=== PATIENT | female | born 1935 | race Caucasian/White ===

== ENCOUNTER 2019-06-17 15:01 | Inpatient (IN) ==
[2019-06-17] MEDS ORDERED: SODIUM CHLORIDE 0.9% 1000ML 1,000 ML IV ONE (15:53)
--- NOTE | 2019-06-17 15:58 | Emergency Department Note ---
ED Provider Note Name: TERESA DAVISON Age: 84 Arrives Via: Ambulance Informant: Nursing CC: Weakness HPI: 84F arrives for evaluation of weakness. Patient reportedly an alcoholic who has been at local [facility] for the previous 4 days. She reportedly has not been eating and increasingly weak. She was sent here for further evaluation due to weakness and non-verbal at [facility]. History otherwise is from paperwork she arrives with. No treatment by EMS prior to arrival. No trauma nor falls reported. ROS: Unable to obtain. Patient nonverbal. Past Medical History:Hypothyroid, Glaucoma, HypoMag, Insomnia, Dementia, Alcohol abuse, anxiety, Vit d deficiency, Vit b12 deficiency, HTN, GERD, DLP, Constipation, Dysphagia, Ambulatory dysfunction Past Surgical History:Unknown Family History:Unknown Social History:Unknown - Lives in [facility], reportedly an alcoholic. Home Medications:Tylenol prn, asa 81mg, atenolol, cyanocobalamin, benadryl, dulcolax, Estradiol patch, fexofenadine, levothyroxin, lorazepam, magox, omeprazole, Allergies:Cefdinir, Clindamycin, Fluconazole, Hydroxychloroquine Vitals:BP 120/67, P 106, R 36, O2 87% RA Physical Exam: GENERAL: Patient is unwell appearing and in no distress. Elderly, cachectic, smells heavily of urine EYES: No scleral icterus, unremarkable pupils. ENT: Mucous membranes dry, no nasal congestion. NECK: No masses appreciated, nomeningismus, trachea is midline. RESPIRATORY: Tachypnea moderate dyspnea. Clear sounds bilaterally. No wheeze appreciated. CARDIOVASCULAR: Tachy.No murmurs, rubs, gallops appreciated. GASTROINTESTINAL: Old RLQ surgical scar noted. Abdomen soft, non-tender, no peritonitis.Bowel sounds positive.No masses appreciated. BACK: No midline tenderness, no CVA tenderness EXTREMITIES: Normal motion all extremities, no cyanosis, no edema. NEUROLOGIC: Awake, looking downward, Moving arms/legs weakly SKIN: Dry, poor turgur, No rash, no jaundice, no diaphoresis. ED Course: Prior Medical Record, Triage/Nursing Notes, Medications, Allergies reviewed by Me Vital Signs: reviewed and remarkable for Tachy, Hypoxia Labs:Reviewed and remarkable for no significant abnormalities other than UA+ Interventions: Saline Lock, Zosyn 4.5gm IV, Vanco IV, NSS bolus 1 L IV Imaging:X ray results are stated below per my interpretation: Chest: 1 view: No infiltrate, no effusion, normal cardiac border. EKG:Per My Interpretation: Indication Weakness/Hypoxia: NSR 100 bpm, qtc 456. No Ectopy. No Ischemia. No previous for comparison. Reassessments/Times: Multiple, stable, HR improving Blood pressure:Normal.No Referral necessary Disposition:hospitalization Differentials:Sepsis, UTI, PNA, Electrolyte abnormality, malingering amongst other pathologies. Medical Decision Makin yr old female with extensive PMH including dementia who recently arrived at a local [facility] and hasn't been interacting nor eating since getting there. She is hypoxic and ill appearing on arrival. Lungs relatively clear however and CXR OK. Cultures where obtained. IV fluids given with improvement in HR. UA reveals UTI. Suspect she is septic from UTI that is causing worsening mental status. She just was in hospital at [facility] apparently thus given IV Zosyn and Vanco for broad spectrum coverage. Hypoxia likely due to sepsis. No leg swelling and seems unlikely PE related. History reported of alcoholism though seems less likely ETOH withdrawal related. Hospitalist consulted for further management. Will hold off on CT head given planned admission and evidence of o ther cause AMS at this time. Impression: Acute UTI Altered Mental Status Hypoxia The scribe's documentation has been prepared under my direction and personally reviewed by me in its entirety. I confirm that the note above accurately reflects all work, treatment, procedures, and medical decision making performed by me. Gume Selby MD Impression & Plan Acute UTI, Altered mental status, Hypoxia Past Med/Surg History Social History Preferred Language: Greenlandic Lung Puller Required: No Current Living Situation: [facility] Feels Safe at Home: Declines to Answer Smoking Status: Unknown if ever smoked Results & Data Vital Signs Vital Signs - 24 hr 06/17/19 15:05 06/17/19 16:00 06/17/19 16:30 Pulse Rate 106 H 102 H Pulse Rate from SpO2 Sensor 102 H 98 H Respiratory Rate 36 H 34 H 32 H Respiratory Depth Shallow Blood Pressure 120/67 149/91 H 149/84 H Blood Pressure Mean 84 101 90 Pulse Oximetry 87 L 98 95 Oxygen Delivery Method Nasal Cannula Oxygen Flow Rate Sepsis Recent Fever Within 48 Hours No Sepsis New/Unexplained Change in Mental Status No Sepsis Action Taken by Nursing No Action Required Oxygen Flow Rate - Titration 2 Pulse Oximetry Post Tiitration 96 06/17/19 17:00 06/17/19 17:30 Pulse Rate Pulse Rate from SpO2 Sensor 100 H 97 H Respiratory Rate 30 H Respiratory Depth Blood Pressure 154/86 H 145/88 H Blood Pressure Mean 97 94 Pulse Oximetry 95 96 Oxygen Delivery Method Oxygen Flow Rate 2 Sepsis Recent Fever Within 48 Hours Sepsis New/Unexplained Change in Mental Status Sepsis Action Taken by Nursing Oxygen Flow Rate - Titration Pulse Oximetry Post Tiitration Laboratory Data Result diagrams: 06/17/19 16:16 06/17/19 16:16 Lab Results 06/17/19 06/17/19 06/17/19 Range/Units 15:50 16:16 16:16 WBC 12.85 H (4.8-10.8) K/uL RBC 3.82 L (4.2-5.4) M/uL Hgb 13.7 (12.0-16.0) g/dL Hct 41.1 (37-47) % MCV 107.6 H (80-100) fL MCH 35.9 H (25-34) pg MCHC 33.3 (32-36) g/dL RDW Std Deviation 51.5 H (36.4-46.3) fL RDW Coeff of Ruthie 13.2 (11.5-14.5) % Plt Count 319 (130-400) K/uL MPV 12.3 H (7.4-10.4) fL Immature Gran % (Auto) 0.2 % Neut % (Auto) 86.9 % Lymph % (Auto) 4.9 % Larimer % (Auto) 7.9 % Eos % (Auto) 0.0 % Baso % (Auto) 0.1 % Immature Gran # (Auto) 0.02 (0.00-0.02) K/uL Neut # (Auto) 11.17 H (1.4-6.5) K/uL Lymph # (Auto) 0.63 L (1.2-3.4) K/uL Larimer # (Auto) 1.02 H (0.11-0.59) K/uL Eos # (Auto) 0.00 (0-0.5) K/uL Baso # (Auto) 0.01 (0-0.2) K/uL PT 12.3 H (9.0-12.0) Seconds INR 1.2 H (0.9-1.1) Sodium (136-145) mmol/L Potassium (3.5-5.1) mmol/L Chloride (98-107) mmol/L Carbon Dioxide (21-32) mmol/L Anion Gap (3-11) BUN (7-18) mg/dl Creatinine (0.6-1.2) mg/dl Est Cr Clr Drug Dosing Est GFR ( Amer) Est GFR (Non-Af Amer) BUN/Creatinine Ratio (10-20) Glucose (70-99) mg/dl Lactate (0.4-2.0) mmol/L Calcium (8.5-10.1) mg/dl Magnesium (1.8-2.4) mg/dl Total Bilirubin (0.2-1) mg/dl Direct Bilirubin (0-0.2) mg/dl AST (15-37) U/L ALT (12-78) U/L Alkaline Phosphatase (45-117) U/L Ammonia (11-32) umol/L Troponin I (0-0.045) ng/ml Total Protein (6.4-8.2) gm/dl Albumin (3.4-5.0) gm/dl Lipase (73-393) U/L Urine Color Dark Yellow Urine Appearance Turbid A (Clear) Urine pH 6.0 (4.5-7.5) Ur Specific Henderson 1.026 (1.000-1.030) Urine Protein 1+ H (Negative) Urine Glucose (UA) Negative (Negative) Urine Ketones Negative (Negative) Urine Blood 3+ H (Negative) Urine Nitrite Positive A (Negative) Urine Bilirubin Negative (Negative) Urine Urobilinogen Negative (Negative) Ur Leukocyte Esterase 3+ H (Negative) Urine WBC (Auto) >30 H (0-5) /hpf Urine RBC (Auto) >30 H (0-4) /hpf U Hyaline Cast (Auto) 5-10 H (0-5) /lpf U Epithel Cells (Auto) >30 H (0-5) /lpf Urine Bacteria (Auto) 4+ H (Negative) Granular Casts 1-5 H (0) /lpf Urine Yeast Present A (None Prsent) 06/17/19 06/17/19 06/17/19 Range/Units 16:16 16:16 16:16 WBC (4.8-10.8) K/uL RBC (4.2-5.4) M/uL Hgb (12.0-16.0) g/dL Hct (37-47) % MCV (80-100) fL MCH (25-34) pg MCHC (32-36) g/dL RDW Std Deviation (36.4-46.3) fL RDW Coeff of Ruthie (11.5-14.5) % Plt Count (130-400) K/uL MPV (7.4-10.4) fL Immature Gran % (Auto) % Neut % (Auto) % Lymph % (Auto) % Larimer % (Auto) % Eos % (Auto) % Baso % (Auto) % Immature Gran # (Auto) (0.00-0.02) K/uL Neut # (Auto) (1.4-6.5) K/uL Lymph # (Auto) (1.2-3.4) K/uL Larimer # (Auto) (0.11-0.59) K/uL Eos # (Auto) (0-0.5) K/uL Baso # (Auto) (0-0.2) K/uL PT (9.0-12.0) Seconds INR (0.9-1.1) Sodium 147 H (136-145) mmol/L Potassium 3.7 (3.5-5.1) mmol/L Chloride 113 H (98-107) mmol/L Carbon Dioxide 26 (21-32) mmol/L Anion Gap 8.0 (3-11) BUN 33 H (7-18) mg/dl Creatinine 0.68 (0.6-1.2) mg/dl Est Cr Clr Drug Dosing Not Reportable Est GFR ( Amer) 94.4 Est GFR (Non-Af Amer) 81.5 BUN/Creatinine Ratio 48.8 H (10-20) Glucose 133 H (70-99) mg/dl Lactate 1.2 (0.4-2.0) mmol/L Calcium 9.8 (8.5-10.1) mg/dl Magnesium 2.1 (1.8-2.4) mg/dl Total Bilirubin 0.5 (0.2-1) mg/dl Direct Bilirubin < 0.1 (0-0.2) mg/dl AST 45 H (15-37) U/L ALT 30 (12-78) U/L Alkaline Phosphatase 74 (45-117) U/L Ammonia 12.0 (11-32) umol/L Troponin I < 0.015 (0-0.045) ng/ml Total Protein 7.8 (6.4-8.2) gm/dl Albumin 2.2 L (3.4-5.0) gm/dl Lipase 57 L (73-393) U/L Urine Color Urine Appearance (Clear) Urine pH (4.5-7.5) Ur Specific Henderson (1.000-1.030) Urine Protein (Negative) Urine Glucose (UA) (Negative) Urine Ketones (Negative) Urine Blood (Negative) Urine Nitrite (Negative) Urine Bilirubin (Negative) Urine Urobilinogen (Negative) Ur Leukocyte Esterase (Negative) Urine WBC (Auto) (0-5) /hpf Urine RBC (Auto) (0-4) /hpf U Hyaline Cast (Auto) (0-5) /lpf U Epithel Cells (Auto) (0-5) /lpf Urine Bacteria (Auto) (Negative) Granular Casts (0) /lpf Urine Yeast (None Prsent) Administered Medications Enoxaparin Sodium (Lovenox) 40 mg SQ Q24H [facility] Stop: 07/17/19 20:59 Last Admin: 06/17/19 22:07 Dose: 40 mg Documented by: [id number] Piperacillin Sod/Tazobactam (Sod 3.375 gm/ Dextrose) 115 mls @ 28.75 mls/hr IV Q8H NIGEL; Protocol Stop: 06/20/19 00:00 Last Admin: 06/18/19 00:02 Dose: 28.8 mls/hr Documented by: [id number] Multivitamins 10 ml/ Thiamine HCl 100 mg/ Folic Acid 1 mg/Sodium Chloride 1,011.2 mls @ 200 mls/hr IV .Q5H4M ONE Stop: 06/18/19 03:03 Last Admin: 06/17/19 22:05 Dose: 200 mls/hr Documented by: [id number] Discontinued Medications Sodium Chloride (Nss 1000ml) 1,000 mls @ 999 mls/hr IV .Q1H1M ONE Stop: 06/17/19 16:53 Last Infusion: 06/17/19 18:49 Dose: 0 mls/hr Documented by: [id number] Admin: 06/17/19 17:56 Dose: 999 mls/hr Documented by: [id number] Vancomycin HCl 1,000 mg/ (Sodium Chloride) 520 mls @ 200 mls/hr IV NOW ONE Stop: 06/17/19 19:33 Last Infusion: 06/17/19 20:32 Dose: 0 mls/hr Documented by: [id number] Admin: 06/17/19 17:56 Dose: 200 mls/hr Documented by: [id number] Piperacillin Sod/Tazobactam Sod (Zosyn) 4.5 gm in 120 mls @ 240 mls/hr IV NOW ONE Stop: 06/17/19 17:27 Last Infusion: 06/17/19 18:49 Dose: 0 mls/hr Documented by: [id number] Admin: 06/17/19 17:56 Dose: 240 mls/hr Documented by: [id number] Discharge Plan Visit Data *Final* Discharge Date/Time: 06/17/19 19:04 Chief Complaint: Mental Health Evaluation ED Provider: Gume Selby Discharge Problem: Acute UTI, Altered mental status, Hypoxia Patient Disposition: Admitted As Inpatient Discharge Instructions Interventions: ED Discharge Assessment Last Done: 06/17/19 19:04 Discharge Problem: Altered mental status Qualifiers: Altered mental status type: stupor Qualified Code(s): R40.1 - Stupor
--- NOTE | 2019-06-17 16:30 | XRay Report ---
XR chest 1V portable HISTORY: 84 years-old Female Sepsis hypoxia acute sepsis COMPARISON: None available TECHNIQUE: Portable AP view of the chest FINDINGS: Cardiac mediastinal and hilar silhouettes are within normal limits. Trace pleural effusions with mild bibasilar opacities. No pneumothorax or overt pulmonary edema. Degenerative changes of the shoulders and spine. IMPRESSION: Trace pleural effusions with bibasilar opacities suggestive of atelectasis versus pneumon itis. ACT 112: Negative or not required by law. The above report was generated using voice recognition software. It may contain grammatical, syntax o r spelling errors. Electronically signed by: José Marion M.D. 06/17/2019 4:29 PM
[2019-06-17 16:39] LABS: Basophils # (auto) 0.01 K/uL (0-0.2); Basophils % (auto) 0.1 %; Hematocrit (blood only) 41.1 % (37-47); Hemoglobin 13.7 g/dL (12.0-16.0); Immature Granulocytes # (auto) 0.02 K/uL (0.00-0.02); Immature Granulocytes % (auto) 0.2 %; Lymphocytes # (auto) 0.63 K/uL (1.2-3.4); Lymphocytes % (auto) 4.9 %; Mean Corpuscular Hemoglobin 35.9 pg (25-34); Mean Corpuscular Hgb Conc 33.3 g/dL (32-36); Mean Corpuscular Volume 107.6 fL (80-100); Mean Platelet Volume 12.3 fL (7.4-10.4); Monocytes # (auto) 1.02 K/uL (0.11-0.59); Monocytes % (auto) 7.9 %; Neutrophils # (auto) 11.17 K/uL (1.4-6.5); Neutrophils % (auto) 86.9 %; Platelet Count 319 K/uL (130-400); RDW Coefficient of Variation 13.2 % (11.5-14.5); RDW Standard Deviation 51.5 fL (36.4-46.3); Red Blood Count 3.82 M/uL (4.2-5.4); White Blood Count 12.85 K/uL (4.8-10.8)
[2019-06-17 16:40] LABS: Appearance Urine Turbid (Clear); Bacteria Urine Automated 4+ (Negative); Bilirubin Urine Negative (Negative); Blood Urine 3+ (Negative); Color Urine Dark Yellow; Epithelial Cell Urine Auto >30 /lpf (0-5); Glucose Urine UA Negative (Negative); Ketones Urine Negative (Negative); Leukocyte Esterase Urine 3+ (Negative); Nitrite Urine Positive (Negative); Protein Urine 1+ (Negative); Specific Gravity Urine 1.026 (1.000-1.030); Urobilinogen Urine Negative (Negative); WBC Urine Automated >30 /hpf (0-5)
[2019-06-17 16:58] LABS: Alanine Aminotransferase 30 U/L (12-78); Albumin Level 2.2 gm/dl (3.4-5.0); Aspartate Aminotransferase 45 U/L (15-37); BUN Creatinine Ratio 48.8 (10-20); Bilirubin Direct < 0.1 mg/dl (0-0.2); Blood Urea Nitrogen 33 mg/dl (7-18); Calcium 9.8 mg/dl (8.5-10.1); Carbon Dioxide 26 mmol/L (21-32); Chloride 113 mmol/L (98-107); Est GFR (African American) 94.4; Est GFR (Non-African American) 81.5; Glucose 133 mg/dl (70-99); Lipase 57 U/L (73-393); Magnesium 2.1 mg/dl (1.8-2.4); Potassium 3.7 mmol/L (3.5-5.1); Sodium 147 mmol/L (136-145)
[2019-06-17] MEDS ORDERED: PIPERACILL/TAZOBAC CONSULT ACTIVE PRN ×2 (16:58→20:24)
[2019-06-17] MEDS ORDERED: VANCOMYCIN HCL 1,000 MG in SODIUM CHLORIDE 0.9% 500 ML IV ONE (16:58)
[2019-06-17] MEDS ORDERED: PIPERACILLIN/TAZOBACTAM 4.5 GM/120 ML BAG IV ONE (16:58)
[2019-06-17] MEDS ORDERED: VANCOMYCIN CONSULT ACTIVE PRN ×2 (16:58→20:24)
[2019-06-17 17:00] LABS: RBC Urine Automated >30 /hpf (0-4)
[2019-06-17 17:01] LABS: INR 1.2 (0.9-1.1); Prothrombin Time 12.3 Seconds (9.0-12.0)
[2019-06-17 17:03] LABS: Alkaline Phosphatase 74 U/L (45-117); Bilirubin,Total 0.5 mg/dl (0.2-1); Total Protein 7.8 gm/dl (6.4-8.2); Troponin I < 0.015 ng/ml (0-0.045)
--- NOTE | 2019-06-17 17:55 | History & Physical Report ---
Date of Service June 17, 2019 Assessment & Plan (1) UTI (urinary tract infection): Patient will be admitted for IV antibiotics I am not confident that she can take oral medication at this point. She also appears to be mildly dehydrated per labs. Patient was given broad-spectrum antibiotics with Zosyn and vancomycin, will continue this until we have a clear sources of infection and urine culture is resulted. (2) Toxic encephalopathy: Patient seems to have altered mental status. This may clear with treatment with antibiotics. Obtaining records from [facility] may also be helpful to find out patient's baseline mental status. Contacting the patient's POA may also be helpful once that person is available. Consider psych consultation. For now, we will keep the patient n.p.o. on IV fluids. Speech evaluation prior to diet release considering questionable findings of pneumonitis. Check plain CT of the head. I do not think the patient has a focal ischemic event at this time but would like to confirm. (3) Alcoholism: Patient does not seem to have any significant alcohol withdrawal at this time. If she was previously hospitalized, s she may have had previous withdrawal that is since resolved. For now continue to monitor. History of Present Illness Primary Care Provider: Deep Salguero This is an 84-year-old female with unclear past medical history but may have previous alcoholism that presented today with change in mental status and anorexia. Patient is nonverbal to me and I can get no history. I did speak to the emergency room physician who also did not have much history on the patient. He did not the patient has no POA and is currently a lizama of the [facility] but he could not contact anyone in that office today on account of the holiday season. Was relayed to me was that the patient was recently treated at [facility]. Patient was discharged a few days ago to a residential. The patient was sent from the residential to our facility after 4 days as the patient was very weak and not eating well. In fact, the initial request was that the patient be 302'd for "refusing to eat". On my evaluation, the patient seemed to be very altered and did not acknowledge me in the room nor did she speak to me. Therefore, no further history can be obtained. Past Med/Surg History Social History Feels Safe at Home: Declines to Answer Smoking Status: Former smoker Review of Systems Review of Systems: Unobtainable due to cognitive status Physical Exam Constitutional: + altered mental status Neck: trachea midline, no thyromegaly Respiratory: Auscultation: lungs clear to auscultation bilaterally Very limited evaluation Cardiovascular: Rate/Rhythm: regular rate and regular rhythm Very limited evaluation Gastrointestinal (Abdomen): normal bowel sounds, soft, nontender, no hepatosplenomegaly Psychiatric: Orientation: + not alert, + not oriented x 3 and + uncooperative Results & Data Vital Signs (Past 12 Hours) Vital Signs Pulse Resp BP Pulse Ox 06/17/19 17:00 30 H 154/86 H 95 06/17/19 16:30 32 H 149/84 H 95 06/17/19 16:00 102 H 34 H 149/91 H 98 06/17/19 15:05 106 H 36 H 120/67 87 L Laboratory Results Patient is a low WBC count of 12.85, hemoglobin is normal. INR is 1.2. Sodium is 147. BUN is 33 with creatinine 0.68. Glucose of 133. Urinalysis appears to be grossly abnormal. Diagnostic Findings XR chest 1V portable HISTORY: 84 years-old Female Sepsis hypoxia acute sepsis COMPARISON: None available TECHNIQUE: Portable AP view of the chest FINDINGS: Cardiac mediastinal and hilar silhouettes are within normal limits. Trace pleural effusions with mild bibasilar opacities. No pneumothorax or overt pulmonary edema. Degenerative changes of the shoulders and spine. IMPRESSION: Trace pleural effusions with bibasilar opacities suggestive of atelectasis versus pneumonitis. PG Care Time/CCT Total # of Minutes Spent Total Time Spent with Patient: Total time spent is greater than 50% in coordination of care (as documented) at patient's floor/unit and/or counseling patient:
[2019-06-17] MEDS ORDERED: VANCOMYCIN HCL 1,000 MG in SODIUM CHLORIDE 0.9% 250 ML IV SCH (20:24)
[2019-06-17] MEDS ORDERED: MULTI-VITAMIN INFUSION 10 ML, THIAMINE HCL 100 MG, FOLIC ACID 1 MG in SODIUM CHLORIDE 0... IV ONE ×2 (20:24→22:00)
[2019-06-17] MEDS ORDERED: SODIUM CHLORIDE 0.9% 1000ML 1,000 ML IV SCH (20:24)
[2019-06-17] MEDS ORDERED: PIPERACILLIN/TAZOBACTAM 3.375 GM/115 ML BAG IV SCH (20:24)
[2019-06-17] MEDS ORDERED: PATIENT'S HEIGHT AND/OR WEIGHT NEEDED SCH (20:38)
--- NOTE | 2019-06-17 21:38 | CT Scan Report ---
CT head/brain wo con CLINICAL HISTORY: 84 years-old Female with altered mental status. Acutely altered mental status TECHNIQUE: Multiple axial CT images of the head were obtained without contrast. A dose lowering tech nique was utilized adhering to the principles of ALARA. CT DOSE: 537.48 mGy.cm COMPARISON: None. FINDINGS: No acute intracranial hemorrhage, midline shift, intracranial mass, hydrocephalus, territorial ischem ia or abnormal extra-axial collection. Age-related involutional changes with ventriculomegaly, likely secondary to ex vacuo changes. Patchy white matter hypodensities suggest chronic microvascular ische kisha disease. Cerebral vascular calcifications noted. The calvarium is intact. Note is made of a metopic suture. The paranasal sinuses, mastoid air cells, and middle ear cavities are clear. IMPRESSION: 1. No acute intracranial abnormality. 2. Age-related involution with ventriculomegaly, likely secondary to ex vacuo changes. Normal pressur e hydrocephalus could have a similar appearance however is considered less likely. Correlate clinical ly. 3. Chronic microvascular ischemic disease. ACT 112: Negative or not required by law. The above report was generated using voice recognition software. It may contain grammatical, syntax o r spelling errors. Electronically signed by: José Marion M.D. 06/17/2019 9:37 PM
[2019-06-17] MEDS: ENOXAPARIN INJ 40 MG/0.4 ML SYR SQ SCH (22:07)
[2019-06-17] MEDS ORDERED: Nursing to Pharmacy Communication ONE (22:13)
--- NOTE | 2019-06-17 22:44 | Pharmacy Report ---
Pharmacy Abx Initial Consult - Date of Service June 17, 2019 - Pharmacy Dosing Scope Date of Consult: 06/17/19 Consultation requested by: Dr. Lou Pharmacy is consulted to initiate vancomycin and Zosyn IV dosing therapy, order appropriate labs and adjust drug dose/frequency. - Subjective The patient is a 84 year old F admitted on 06/17/19 17:59. - Objective Height: 5 ft Weight: 56 kg Vital Signs (Past 12hrs): Vital Signs Temp Pulse Pulse Resp BP BP Pulse Ox 06/17/19 20:24 36.8 C 100 H 20 164/73 H 95 06/17/19 18:30 98 H 23 115/88 95 06/17/19 18:01 34 H 136/98 97 06/17/19 17:30 145/88 H 96 06/17/19 17:00 30 H 154/86 H 95 06/17/19 16:30 32 H 149/84 H 95 06/17/19 16:00 102 H 34 H 149/91 H 98 06/17/19 15:05 106 H 36 H 120/67 87 L Lab Results (24hrs): Laboratory Tests (24 Hours) 06/17/19 06/17/19 16:16 16:16 WBC 12.85 H Neut # (Auto) 11.17 H Creatinine 0.68 Est Cr Clr Drug Dosing Not Reportable Micro Results: 06/17/19 16:28 Aerobic Blood Culture - Pending Blood Anaerobic Blood Culture - Pending 06/17/19 15:50 Urine Culture - Pending Urine,Clean Catch 06/17/19 16:16 Aerobic Blood Culture - Pending Blood Anaerobic Blood Culture - Pending - Risk Factors for Resistance * Resident in a correction or extended-care facility * Hospitalization for 48 hours or more within the past 90 days ([facility]) - Assessment & Plan Assessment 84 year old F receiving empiric vancomycin and Zosyn for treatment of possible UTI. Unclear cause of altered mental status at this time. Patient presents from correction following recent admission to [facility]. Microbiology (06/17/19) Blood cultures x 2: pending Urine culture: pending Plan Vancomycin IV * Estimated PK Parameters: Vd 0.7 L/kg, Khanh 0.046 hr-1, t1/2 56 hr * Loading dose: 1000 mg (18 mg/kg) * Maintenance dose: 750 mg IV (13 mg/kg) every 12 hours * Will dose vancomycin to achieve AUC:DEYSI of greater than 400 * Trough level ordered for 06/19/19 Piperacillin/tazobactam * 4.5 g bolus administered over 30 minutes, then 3.375 g IV extended infusion every 8 hours for CrCl greater than 20 mL/min * Dose appropriate Pharmacy will continue to follow and will adjust dose/frequency as necessary. Thank you.
[2019-06-18] MEDS: PIPERACILLIN/TAZOBACTAM 3.375 GM in DEXTROSE 5% 100 ML IV SCH ×3 (00:02→16:10)
[2019-06-18] MEDS: SODIUM CHLORIDE 0.9% 1000ML 1,000 ML IV SCH ×3 (03:23→10:55)
[2019-06-18] MEDS: VANCOMYCIN HCL 750 MG in SODIUM CHLORIDE 0.9% 250 ML IV SCH ×2 (05:43→18:35)
[2019-06-18 08:27] LABS: Basophils # (auto) 0.02 K/uL (0-0.2); Basophils % (auto) 0.2 %; Eosinophils # (auto) 0.01 K/uL (0-0.5); Eosinophils % (auto) 0.1 %; Hematocrit (blood only) 36.3 % (37-47); Hemoglobin 11.8 g/dL (12.0-16.0); Immature Granulocytes # (auto) 0.03 K/uL (0.00-0.02); Immature Granulocytes % (auto) 0.3 %; Lymphocytes # (auto) 0.89 K/uL (1.2-3.4); Lymphocytes % (auto) 7.5 %; Mean Corpuscular Hemoglobin 35.2 pg (25-34); Mean Corpuscular Hgb Conc 32.5 g/dL (32-36); Mean Corpuscular Volume 108.4 fL (80-100); Monocytes # (auto) 0.66 K/uL (0.11-0.59); Monocytes % (auto) 5.6 %; Neutrophils % (auto) 86.3 %; Platelet Count 274 K/uL (130-400); RDW Coefficient of Variation 13.3 % (11.5-14.5); RDW Standard Deviation 52.6 fL (36.4-46.3); Red Blood Count 3.35 M/uL (4.2-5.4); White Blood Count 11.81 K/uL (4.8-10.8)
[2019-06-18 09:03] LABS: BUN Creatinine Ratio 43.5 (10-20); Calcium 8.8 mg/dl (8.5-10.1); Creatinine Clr Calc Pharmacy 60.1 ml/min; Est GFR (African American) 100.1; Est GFR (Non-African American) 86.3; Potassium 3.1 mmol/L (3.5-5.1)
[2019-06-18 09:32] LABS: Folate (Folic Acid) 23.5 ng/ml (>5.38)
[2019-06-18] MEDS: POTASSIUM CHLORIDE 40 MEQ in DEXTROSE 5% 1,000 ML IV SCH (11:30)
[2019-06-18] MEDS: THIAMINE HCL 200 MG in SODIUM CHLORIDE 0.9% 50 ML IV SCH ×2 (14:36→22:20)
[2019-06-18] MEDS: METOPROLOL TARTRATE 1 MG/ML VIAL IV PRN ×2 (14:36→19:52)
[2019-06-18] MEDS: ENOXAPARIN INJ 40 MG/0.4 ML SYR SQ SCH (22:20)
--- NOTE | 2019-06-18 22:54 | Hospitalist Progress Note ---
Date of Service June 18, 2019 Assessment & Plan (1) Wernicke encephalopathy: Thiamine level taken (although noted she had 100mg IV in ER so this may be artificially raised) and started on 200mg IV TID. After discussing with [facility] her history is somewhat more concerning for Korsakoffs/Wernicke's and will increase thiamine to 500mg IV TID. Initially being off balance with recurrent falls, she only had 100mg thiamine PO daily at [facility] and then appeared to develop more memory impairment, delirium and eventual apathy. Unable to test for ophthalmoplegia on exam due to patient compliance/cognition. (2) Toxic encephalopathy: Baseline prior to [facility] admission on 05 June: Able to have full conversations. Possible undiagnosed dementia but appeared to be much worse during admission to [facility]. Recurrent falls. She apparently was walking (with assistance) at [facility] but become more generalized fatigue, suspected due to Librium use which was discontinued on 11 June. [facility] notes mention sleeping most of the day, not taking medication or much oral intake in general. Nb: she did have one fever at [facility] on 11 June but blood cultures where negative and UA was apparently "clean for infection". She was deemed incompetent to make medical decisions at [facility] (although I am unclear on the timing of this with her almost certainly going through alcohol withdrawal during her admission). She now has a guardian in place from [facility]. Cannot be discharged with discussing with guardian. Once medical causes of encephalopathy resolved will consult psychiatry. CT head unremarkable (3) Hypernatremia: Hyperchloremia secondary to normal saline given on admission. Stopped this morning and switched to D5W with potassium. 1.5L water deficit calculated. Repeat labs in AM to monitor. (4) UTI (urinary tract infection): Patient will be admitted for IV antibiotics I am not confident that she can take oral medication at this point. She also appears to be mildly dehydrated per labs. Patient was given broad-spectrum antibiotics with Zosyn and vancomycin, will continue this until we have a clear sources of infection and urine culture is resulted. (5) Alcoholism: I do not suspect alcohol withdrawal as last alcohol drink suspected to be around 04 June. She had a positive ethanol level on admission to [facility] on and was treated with Librium there for suspected alcohol withdrawal. I suspect this is the first time she has been sober for quite some time. (6) Sinus tachycardia: ?secondary to dehydration vs. reflex from atenolol discontinuation (7) DVT prophylaxis: lovenox 40mg sq daily (8) Discharge planning issues: Family do not wish her to go back to [facility]. PT/OT/speech/nutrition if she becomes more awake. Subjective Patient sleeping. Just about opens her eyes to sternal rub. Groans with pain with any movement. Unable to answer any questions. Discussed care with family at bedside who were unable to provide me with much of a history other than she has been on a general decline for the last 6 months with continued high alcohol intake. Discussed code status with office of [facility] and for the weekend atleast she is to be full code. Discussed with provider at [facility] but awaiting full notes - baseline prior to [facility] admission on 05 June: Able to have full conversations. Possible undiagnosed dementia but appeared to be much worse during admission to [facility]. Recurrent falls (main reason for admission to [facility]). She apparently was walking (with assistance) at [facility] but with worsening generalized fatigue during her admission. This was suspected due to Librium use which was discontinued on 11 June. Nb: she did have one fever at [facility] on 11 June but blood cultures where negative and UA was apparently "clean for infection" (results not seen by this provider). She was deemed incompetent to make medical decisions at [facility] (although I am unclear on the timing of this with her almost certainly going through alcohol withdrawal during her admission). [facility] notes mention sleeping most of the day, not taking medication or much oral intake in general. Review of Systems Review of Systems: Unobtainable due to cognitive status Physical Exam Constitutional: + ill appearing and + disheveled; + not well nourished and no acute distress Eyes: PERRL, conjunctivae normal, anicteric sclerae ENMT: Nose: no external nose abnormality Mouth: + dry oral mucous membranes; no lip abnormality Respiratory: no respiratory distress Auscultation: lungs clear to auscultation bilaterally; no diminished lung sounds, no crackles, no rales, no rhonchi and no wheezes Cardiovascular: RRR, no murmur, no edema Gastrointestinal (Abdomen): Inspection/Auscultation: + hypoactive bowel sounds Percussion/Palpation: abdomen soft; abdomen nontender, no guarding and abdome n not rigid Skin: no rashes, warm and dry (no cellulitic changes) Neurologic: + not awake Speech / Cognition: + abnormal speech (non verbal) Motor/Sensory: no tremor wakes to sternal rub Psychiatric: Orientation: + not alert and + not oriented x 3 Results & Data Vital Signs (Past 12 Hours) Vital Signs Temp Pulse Pulse Resp BP BP Pulse Ox 06/18/19 19:52 100 H 144/74 H 06/18/19 19:29 36.8 C 101 H 18 144/74 H 94 06/18/19 16:05 113 H 06/18/19 15:31 37.5 C 99 H 16 134/79 98 06/18/19 14:36 115 H 132/78 06/18/19 11:15 36.7 C 111 H 16 132/78 95 06/18/19 11:13 114 H PG Care Time/CCT Total # of Minutes Spent Total Time Spent with Patient: Total time spent is greater than 50% in coordination of care (as documented) at patient's floor/unit and/or counseling patient:
[2019-06-18] MEDS ORDERED: THIAMINE HCL 500 MG in SODIUM CHLORIDE 0.9% 50 ML IV STA (22:57)
[2019-06-19] MEDS: POTASSIUM CHLORIDE 40 MEQ in DEXTROSE 5% 1,000 ML IV SCH (00:11)
[2019-06-19] MEDS: PIPERACILLIN/TAZOBACTAM 3.375 GM in DEXTROSE 5% 100 ML IV SCH ×3 (00:12→18:10)
[2019-06-19] MEDS: METOPROLOL TARTRATE 1 MG/ML VIAL IV PRN ×3 (05:11→18:10)
[2019-06-19] MEDS ORDERED: VANCOMYCIN TROUGH ONE (05:30)
[2019-06-19 06:57] LABS: Basophils # (auto) 0.02 K/uL (0-0.2); Basophils % (auto) 0.2 %; Eosinophils # (auto) 0.05 K/uL (0-0.5); Eosinophils % (auto) 0.4 %; Hematocrit (blood only) 43.7 % (37-47); Immature Granulocytes # (auto) 0.03 K/uL (0.00-0.02); Immature Granulocytes % (auto) 0.3 %; Lymphocytes # (auto) 0.96 K/uL (1.2-3.4); Lymphocytes % (auto) 8.1 %; Mean Corpuscular Hemoglobin 35.2 pg (25-34); Mean Corpuscular Volume 109.8 fL (80-100); Mean Platelet Volume 12.6 fL (7.4-10.4); Monocytes # (auto) 0.74 K/uL (0.11-0.59); Monocytes % (auto) 6.2 %; Neutrophils # (auto) 10.06 K/uL (1.4-6.5); Neutrophils % (auto) 84.8 %; Platelet Count 303 K/uL (130-400); RDW Coefficient of Variation 13.3 % (11.5-14.5); RDW Standard Deviation 53.2 fL (36.4-46.3); Red Blood Count 3.98 M/uL (4.2-5.4); White Blood Count 11.86 K/uL (4.8-10.8)
[2019-06-19 07:43] LABS: Alanine Aminotransferase 72 U/L (12-78); Alkaline Phosphatase 101 U/L (45-117); Aspartate Aminotransferase 123 U/L (15-37); BUN Creatinine Ratio 31.1 (10-20); Bilirubin,Total 0.6 mg/dl (0.2-1); Blood Urea Nitrogen 20 mg/dl (7-18); Calcium 9.4 mg/dl (8.5-10.1); Carbon Dioxide 21 mmol/L (21-32); Chloride 115 mmol/L (98-107); Creatinine Clr Calc Pharmacy 52.7 ml/min; Est GFR (African American) 95.8; Est GFR (Non-African American) 82.7; Glucose 113 mg/dl (70-99); Phosphorus 3.1 mg/dl (2.5-4.9); Sodium 145 mmol/L (136-145); Total Protein 7.9 gm/dl (6.4-8.2)
[2019-06-19] MEDS: THIAMINE HCL 500 MG in SODIUM CHLORIDE 0.9% 50 ML IV SCH ×3 (08:08→21:39)
[2019-06-19] MEDS ORDERED: IOVERSOL 100ml IV PRN (11:45)
--- NOTE | 2019-06-19 12:22 | CT Scan Report ---
ABDOMEN AND PELVIS CT WITH IV CONTRAST CT DOSE: 298.02 mGy.cm HISTORY: Acutely altered mental status alcoholic liver disease, ascites, altered mental s TECHNIQUE: Multiaxial CT images of the abdomen and pelvis were performed following the IV administrat ion of 94 cc of Optiray 320, A dose lowering technique was utilized adhering to the principles of AL GEOVANNY. COMPARISON STUDY: None. FINDINGS: Motion degraded exam. Dependent subsegmental bibasilar consolidation/atelectasis with suggestion of t race pleural effusions. No pneumatosis or pneumoperitoneum. The imaged inferior cardiac chambers are unremarkable. Coronary arterial calcifications. Spleen, adrenal glands and visualized gallbladder lane ear unremarkable. Mild to moderate generalized pancreatic atrophy. There are a few tiny subcentimeter hepatic cysts. Indeterminate 1.2 cm hypodense lesion of the posterior right hepatic lobe, image 13 s eries 2. Patency of the hepatic and portal veins. Kidneys are unremarkable. Urinary bladder wall thickening with partial distention. Lr catheter is noted within the urinary bladder with intraluminal air, likely secondary to instrumentation. Hysterec lopez. No adnexal masses. Extensive calcified plaque of the abdominal aorta. No adenopathy. Wall thick ening of the stomach with partial distention. No small bowel obstruction. Colonic diverticulosis with out acute diverticulitis. Air-fluid levels are noted within the right hemicolon. The appendix is not diagnostically visualized may be surgically absent. There is a large complex right hip joint effusion. Small to moderate left hip joint effusion with polina ateral hip chondrocalcinosis. There is stranding involving the right iliopsoas psoas, and right opera tor internus musculature. Fluid is noted within the right obturator internus musculature. There is st randing of the dependent and right lateral pelvis also noted surrounding the right piriformis muscle. Tiny fat filled periumbilical hernia. Peripherally calcified bilateral breast implants. Degenerative changes of the spine, pelvis and hips. Grade 1 anterolisthesis L4 on L5, likely degenerative. Modera te osteophyte is of the bilateral hips. No bony erosions identified. IMPRESSION: 1. Motion degraded exam. 2. No bowel obstruction or bowel wall thickening identified. 3. Trace pleural effusions with mild left basilar atelectasis. 4. Large complex right and [id number] left hip joint effusions with bilateral chondrocalcinosi s. Additionally, there is soft tissue edema and heterogeneity of the musculature surrounding the righ t hip, notably involving the distal iliopsoas, obturator internus and piriform muscles with edema and trace fluid within the dependent right hemipelvis. Findings may be secondary to crystalline arthropa thy or inflammatory arthropathy with posttraumatic or infectious etiologies also within the different ial. Correlate with patient history, laboratory analysis and physical exam findings. 5. Colonic diverticulosis without acute diverticulitis. 6. Additional findings as above. ACT 112: Negative or not required by law. The above report was generated using voice recognition software. It may contain grammatical, syntax o r spelling errors. Electronically signed by: José Marion M.D. 06/19/2019 12:20 PM
--- NOTE | 2019-06-19 16:26 | Hospitalist Progress Note ---
Date of Service June 19, 2019 Assessment & Plan (1) Right hip joint effusion: Concern for septic joint given fever, WBC and CT imaging. Discussed with Dr Marion and will get right hip aspiration under fluoro guidance. Consent needed from Marion @ [facility] as patient under guardianship ([phone]); Nb: number will be different during next week. Restart vancomycin with Zosyn. Blood cultures negative after 24 hours. No findings on exam to suspect this but given chronic alcohol use unlikely to amount a significant immune response. (2) Wernicke encephalopathy: Concern for Wernicke's/Korsakoff given history of recurrent falls leading to memory impairement, delirium and eventual apathy. Thiamine level taken after Banana bag in ER therefore whatever the reesult I am still concerned for this. Continue IV thiamine 500mg TID for 3 days then 200mg daily. (3) Toxic encephalopathy: Baseline prior to [facility] admission on 05 June: Able to have full conversations. Possible undiagnosed dementia but appeared to be much worse during admission to [facility]. Recurrent falls prior to admission but started being completely immobile during that admission. She apparently was walking (with assistance) at [facility] but become more generalized fatigue, suspected due to Librium use which was discontinued on 11 June. [facility] notes suggest bed bound status, sleeping most of the day, not taking medication or much/any oral intake in general. Nb: she did have one fever at [facility] on 11 June but blood cultures where negative and UA was apparently "clean for infection". She was deemed incompetent to make medical decisions at [facility] (although psychiatry assessment suggest a significant decline from to 10 June assessment. She now has a guardian in place from [facility] of [facility]. Cannot be discharged with discussing with guardian. Once medical causes of encephalopathy resolved will consult psychiatry. CT head unremarkable CT A/P performed to assess for ascites with significant D5W given here and at [facility]. However findings concerning for septic arthritis despite no erythema on exam (see above). (4) Hypernatremia: Now resolved with D5W, will discontinue and switch to clear liquids. Hyperchloremia/natremia secondary to normal saline given on admission with dehydration. (5) UTI (urinary tract infection): Continue Zosyn, GNR on culture. Unclear if contributing towards current status but will continue to treat as a potentially reversible cause. (6) Alcoholism: No alcohol withdrawal as last alcohol drink suspected to be around 04 June. She had a positive ethanol level on admission to [facility] on and was treated with Librium there for suspected alcohol withdrawal. I suspect this is the first time she has been sober for quite some time. (7) Sinus tachycardia: ?secondary to dehydration vs. reflex from atenolol discontinuation vs. appropriate in setting of infection. One episode of SVT on 06/18 which spontaneously resolved. If ongoing consider CT for PE given current immobility - currently on room air so no fair to do this. (8) DVT prophylaxis: lovenox 40mg sq daily, hold secondary to planned hip aspiration. Restart 24 hours after aspiration. (9) Discharge planning issues: Family do not wish her to go back to [facility] (although actual decision down to [facility] of [facility]). PT/OT/speech/nutrition if she becomes more awake. Highly recommend stability for at least 48 hours prior to discharge as previously discharged to [facility] just after stopping her IV fluids and clearly was not drinking enough there. Subjective Patient appears more awake today. Verbalizing a small amount. Mentions "dye hair black" which her son reports was referring to a conversation they had 10 minutes ago about dying her hair. She repeats a few of the words I have from my questions inappropriately, rather than answering the question. Groans in pain on any movement. Unable to obtain history from patient due to current cognition. Son reports large decline has been over a 6 month period. Review of Systems Review of Systems: Unobtainable due to cognitive status Physical Exam Constitutional: + cachectic; + not well nourished and no acute distress Eyes: + anicteric sclerae and + abnormal pupil size (b/l equal, small) ENMT: Mouth: + dry oral mucous membranes Neck: trachea midline Respiratory: + uses accessory muscles, normal percussion and + prolonged expiratory phase; no respiratory distress, no cough and not tachypneic Auscultation: lungs clear to auscultation bilaterally Cardiovascular: Rate/Rhythm: regular rhythm and + tachycardic Heart Sounds: no murmur Vessels: no JVD Extremities: normal capillary refill; no calf tenderness and no pedal edema Gastrointestinal (Abdomen): Inspection/Auscultation: abdomen normal to inspection, + abdomen distended and normal bowel sounds Percussion/Palpation: abdomen soft; abdomen nontender, no guarding and abdomen not rigid Musculoskeletal: Hip: + limited ROM of hip (holding legs in flexion and painful to move); no effusion and no skin erythema Generalized pain on any movement of upper or lower extremities Skin: no rashes, warm and dry Neurologic: awake Psychiatric: Orientation: alert; + not oriented x 3 Apperance: + disheveled Eye Contact: + poor eye contact Motor Behavior: no abnormal motor movements Thought Process: + tangential thought process and + looseness of associations (repeats words) Results & Data Vital Signs (Past 12 Hours) Vital Signs Temp Pulse Pulse Pulse Resp BP BP 06/19/19 15:08 37.9 C H 104 H 16 143/78 H 06/19/19 14:58 100 H 06/19/19 11:23 36.5 C 107 H 16 144/74 H 06/19/19 09:58 103 H 06/19/19 07:16 36.5 C 102 H 24 153/79 H 06/19/19 05:11 104 H 143/84 H 06/19/19 05:10 104 H Pulse Ox 06/19/19 15:08 93 06/19/19 14:58 06/19/19 11:23 97 06/19/19 09:58 06/19/19 07:16 94 06/19/19 05:11 06/19/19 05:10 93 PG Care Time/CCT Total # of Minutes Spent Total Time Spent with Patient: Total time spent is greater than 50% in coordination of care (as documented) at patient's floor/unit and/or counseling patient: (1) UTI (urinary tract infection) Hematuria presence: with hematuria Urinary tract infection type: acute cystitis Qualified Code(s): N30.01 - Acute cystitis with hematuria
[2019-06-19] MEDS ORDERED: VANCOMYCIN CONSULT ACTIVE PRN (16:38)
[2019-06-19 16:41] LABS: INR 1.2 (0.9-1.1); Partial Thromboplastin Ratio 1.1; Partial Thromboplastin Time 28.6 Seconds (21.0-31.0); Prothrombin Time 11.9 Seconds (9.0-12.0)
[2019-06-19] MEDS ORDERED: VANCOMYCIN HCL 1,250 MG in SODIUM CHLORIDE 0.9% 250 ML IV ONE (17:00)
--- NOTE | 2019-06-19 18:59 | Pharmacy Report ---
Pharmacy Abx Initial Consult - Date of Service June 19, 2019 - Pharmacy Dosing Scope Date of Consult: 06/19/19 Consultation requested by: Dr. Howard Pharmacy is consulted to initiate Vancomycin and Zosyn IV dosing therapy, order appropriate labs and adjust drug dose/frequency. - Subjective The patient is a 84 year old F admitted on 06/17/19 17:59. - Objective Height: 5 ft Weight: 56.9 kg Vital Signs (Past 12hrs): Vital Signs Temp Pulse Pulse Resp BP BP Pulse Ox 06/19/19 18:10 111 H 143/78 H 06/19/19 15:08 37.9 C H 104 H 16 143/78 H 93 06/19/19 14:58 100 H 06/19/19 11:23 36.5 C 107 H 16 144/74 H 97 06/19/19 09:58 103 H 06/19/19 07:16 36.5 C 102 H 24 153/79 H 94 Lab Results (24hrs): Laboratory Tests (24 Hours) 06/19/19 06/19/19 06:26 06:26 WBC 11.86 H Neut # (Auto) 10.06 H Creatinine 0.65 Est Cr Clr Drug Dosing 52.7 - Risk Factors for Resistance - Risk Factors for Resistance * Resident in a senior living or extended-care facility * Hospitalization for 48 hours or more within the past 90 days ([facility]) - Assessment & Plan Assessment 84 year old F receiving empiric Zosyn for treatment of suspected UTI. Vancomycin restarted today due to concern for possible septic arthritis. Tmax today of 37.9, Patient presents from senior living following recent admission to [facility]. CT of abdomen/pelvis revealed small/moderate left hip joint effusions (possible infectious etiology) Microbiology (06/17/19) Blood cultures x 2: pending Urine culture: gram negative bacilli Plan Vancomycin IV * Estimated PK Parameters: Vd 0.7 L/kg, Khanh 0.048 hr-1, t1/2 14 hr * Loading dose: 1250 mg (22 mg/kg) * Maintenance dose: 750 mg IV (13 mg/kg) every 12 hours * Will dose vancomycin to achieve AUC:DEYSI of greater than 400 * Trough level ordered for 06/21/19 Piperacillin/tazobactam * 4.5 g bolus administered over 30 minutes, then 3.375 g IV extended infusion every 8 hours for CrCl greater than 20 mL/min * Dose appropriate Pharmacy will continue to follow and will adjust dose/frequency as necessary. Thank you.
--- NOTE | 2019-06-19 19:26 | Fluoroscopy Report ---
FL inj majr joint sh,hip,kn RT FLUOROSCOPY TIME: 30 seconds. One spot fluoroscopic image was submitted for review. HISTORY: Right hip joint effusion. PROCEDURE: The patient was unable to give informed consent, the patient's legal guardian, Marion miller was reached via telephone and informed consent was then given. The patient was placed supine on the fluoroscopy table. A suitable site for needle insertion was marked using fluoroscopic guidance. The right hip was prepped and draped in the usual sterile fashion. 1% lidocaine was used for skin, subcut aneous and deep soft tissue anesthesia. Under intermittent fluoroscopic guidance, a 22 gauge x 3.5 in ch spinal needle was inserted into the right hip joint. 2 cc of Optiray 300 was injected to confirm t he intra-articular location. No fluid returned to the needle hub upon insertion into the joint space. Approximately 7 mL sterile saline was then injected into the joint space and aspiration was again at tempted. No fluid was returned in the syringe upon multiple attempts. The patient became combative an d belligerent complaining of pain and discomfort while insulting myself and the technical staff throu ghout the exam. The needle was then removed. There were no apparent complications. The patient was th en returned to the room for observation. IMPRESSION: Fluoroscopic-guided right hip aspiration without immediate complication. ACT 112: Negative or not required by law. The above report was generated using voice recognition software. It may contain grammatical, syntax o r spelling errors. Electronically signed by: José Marion M.D. 06/19/2019 7:25 PM
[2019-06-19] MEDS: FAMOTIDINE 20 MG in SYRINGE 3 ML IV SCH (20:07)
[2019-06-20] MEDS: PIPERACILLIN/TAZOBACTAM 3.375 GM in DEXTROSE 5% 100 ML IV SCH ×3 (00:06→23:36)
[2019-06-20] MEDS ORDERED: ACETAMINOPHEN 1,000 MG/100 ML VIAL IV STA (04:53)
[2019-06-20] MEDS ORDERED: VANCOMYCIN HCL 750 MG in SODIUM CHLORIDE 0.9% 250 ML IV SCH (05:00)
[2019-06-20] MEDS ORDERED: HYDROmorphone INJ 0.5 MG/0.5 ML SYR IV STA (05:00)
[2019-06-20] MEDS ORDERED: HYDROmorphone INJ 0.5 MG/0.5 ML SYR ONE (05:04)
[2019-06-20] MEDS: VANCOMYCIN HCL 750 MG in SODIUM CHLORIDE 0.9% 250 ML IV SCH ×2 (06:22→17:16)
[2019-06-20 07:11] LABS: Basophils # (auto) 0.03 K/uL (0-0.2); Basophils % (auto) 0.3 %; Eosinophils # (auto) 0.12 K/uL (0-0.5); Eosinophils % (auto) 1.2 %; Hematocrit (blood only) 39.1 % (37-47); Hemoglobin 12.4 g/dL (12.0-16.0); Immature Granulocytes # (auto) 0.03 K/uL (0.00-0.02); Immature Granulocytes % (auto) 0.3 %; Lymphocytes # (auto) 1.08 K/uL (1.2-3.4); Lymphocytes % (auto) 10.4 %; Mean Corpuscular Hemoglobin 34.2 pg (25-34); Mean Corpuscular Hgb Conc 31.7 g/dL (32-36); Mean Corpuscular Volume 107.7 fL (80-100); Mean Platelet Volume 12.1 fL (7.4-10.4); Monocytes # (auto) 0.68 K/uL (0.11-0.59); Monocytes % (auto) 6.6 %; Neutrophils % (auto) 81.2 %; Platelet Count 322 K/uL (130-400); RDW Coefficient of Variation 13.2 % (11.5-14.5); Red Blood Count 3.63 M/uL (4.2-5.4); White Blood Count 10.34 K/uL (4.8-10.8)
[2019-06-20 07:46] LABS: Albumin Level 1.7 gm/dl (3.4-5.0); BUN Creatinine Ratio 29.5 (10-20); Calcium 9.1 mg/dl (8.5-10.1); Creatinine Clr Calc Pharmacy 65.1 ml/min; Est GFR (African American) 102.5; Est GFR (Non-African American) 88.4; Potassium 3.7 mmol/L (3.5-5.1)
[2019-06-20 07:54] LABS: Albumin Globulin Ratio 0.4 (0.9-2); Bilirubin,Total 0.5 mg/dl (0.2-1); Globulin 4.7 gm/dl (2.5-4.0); Total Protein 6.4 gm/dl (6.4-8.2)
[2019-06-20] MEDS ORDERED: PIPERACILLIN/TAZOBACTAM 3.375 GM in DEXTROSE 5% 100 ML IV STA (08:46)
[2019-06-20] MEDS ORDERED: KETOROLAC TROMETHAMINE 15 MG/ML VIAL IV SCH (09:00)
[2019-06-20] MEDS: LEVOTHYROXINE SODIUM 37.5 MCG in SYRINGE 0 ML IV SCH (09:08)
[2019-06-20] MEDS: KETOROLAC TROMETHAMINE 15 MG/ML VIAL IV SCH ×3 (09:08→20:38)
[2019-06-20] MEDS: THIAMINE HCL 500 MG in SODIUM CHLORIDE 0.9% 50 ML IV SCH ×3 (10:57→20:38)
--- NOTE | 2019-06-20 12:45 | Hospitalist Progress Note ---
Date of Service June 20, 2019 Assessment & Plan (1) Right hip joint effusion: Concern for septic joint given fever, WBC and CT imaging showing complex fluid collection. -not able to get right hip aspiration under fluoro guidance due to poor cooperation by patient MRI hip ordered today Consult Ortho appreciated Leukocytosis improved -continue vancomycin and Zosyn. Blood cultures negative (2) Wernicke encephalopathy: Concern for Wernicke's/Korsakoff given history of recurrent falls leading to memory impairement, delirium and eventual apathy. Thiamine level taken after Banana bag in ER therefore whatever the result I am still concerned for this. Continue IV thiamine 500mg TID for 3 days then 200mg daily. (3) Toxic encephalopathy: Baseline prior to [facility] admission on 05 June: Able to have full conversations. Possible undiagnosed dementia but appeared to be much worse during admission to [facility]. Recurrent falls prior to admission but started being completely immobile during that admission. She apparently was walking (with assistance) at [facility] but become more generalized fatigue, suspected due to Librium use which was discontinued on 11 June. [facility] notes suggest bed bound status, sleeping most of the day, not taking medication or much/any oral intake in general. -she did have one fever at [facility] on 11 June but blood cultures where negative and UA was apparently "clean for infection". She was deemed incompetent to make medical decisions at [facility] (although psychiatry assessment suggest a significant decline from to 10 June assessment. She now has a guardian in place from office of aging. Cannot be discharged without first discussing with guardian. Does seem improved today CT head unremarkable CT A/P performed to assess for ascites with significant D5W given here and at [facility]. However findings concerning for septic arthritis despite no erythema on exam (see above) Also with UTI being treated (4) Hypernatremia: Now resolved with D5W, Hyperchloremia/natremia secondary to normal saline given on admission with dehydration. FOllow BMP (5) UTI (urinary tract infection): Continue Zosyn, E. coli pansensitive on culture. Unclear if contributing towards current status but will continue to treat as a potentially reversible cause of encephalopathy (6) Alcoholism: No alcohol withdrawal as last alcohol drink suspected to be around 04 June. She had a positive ethanol level on admission to [facility] on and was treated with Librium there for suspected alcohol withdrawal. I suspect this is the first time she has been sober for quite some time. (7) Sinus tachycardia: ?secondary to dehydration vs. reflex from atenolol discontinuation vs. appropriate in setting of infection. One episode of SVT on 06/18 which spontaneously resolved. -restart atenolol tomorrow (8) DVT prophylaxis: lovenox 40mg sq daily restarted (9) Discharge planning issues: Family do not wish her to go back to [facility] (although actual decision down to office of aging). PT/OT Highly recommend stability for at least 48 hours prior to discharge as previously discharged to [facility] just after stopping her IV fluids and clearly was not drinking enough there. Subjective Has pain in right hip. Otherwise has no appetite, barely eating as per RN, is confused. Denies CP or SOB, no abd pain Review of Systems Review of Systems: All systems reviewed & are unremarkable except as noted in HPI & below Physical Exam Constitutional: average body habitus (smells of urine despite having Lr catheter in place and being bathed); no acute distress Eyes: + anicteric sclerae Neck: trachea midline, no thyromegaly Respiratory: normal respiratory effort, lungs clear to auscultation Cardiovascular: RRR, no murmur, no edema Chest (Breasts): Chest: normal inspection of chest Gastrointestinal (Abdomen): normal bowel sounds, soft, nontender, no hepat osplenomegaly Musculoskeletal: Extremities: extremities normal to inspection; no cyanosis and no clubbing Right hip +TTP laterally and pain with ROM passively Skin: no rashes, warm and dry Neurologic: moves all extremities and awake; no focal motor deficits Psychiatric: Orientation: alert, oriented to person, cooperative and + guarded Eye Contact: + fair eye contact Insight: + poor insight Judgement: + poor judgement Genitourinary: Lr in place Lymphatic: no lymphedema Results & Data Vital Signs (Past 12 Hours) Vital Signs Temp Pulse Pulse Pulse Resp BP BP 06/20/19 11:22 36.5 C 101 H 20 152/82 H 06/20/19 07:44 36.5 C 98 H 20 135/85 06/20/19 07:21 99 H 06/20/19 03:45 37 C 105 H 22 157/81 H Pulse Ox 06/20/19 11:22 94 06/20/19 07:44 93 06/20/19 07:21 06/20/19 03:45 94 Laboratory Results Labs reviewed PG Care Time/CCT Total # of Minutes Spent Total Time Spent with Patient: Total time spent is greater than 50% in coordination of care (as documented) at patient's floor/unit and/or counseling patient: (1) UTI (urinary tract infection) Hematuria presence: with hematuria Urinary tract infection type: acute cystitis Qualified Code(s): N30.01 - Acute cystitis with hematuria
[2019-06-20] MEDS: METOPROLOL TARTRATE 1 MG/ML VIAL IV PRN ×3 (12:46→22:22)
--- NOTE | 2019-06-20 13:56 | Orthopedic Consultation ---
Date of Consultation June 20, 2019 Assessment & Plan (1) Right hip joint effusion: Patient did seem to have pain on examination of the right hip. Seem to be the most irritable aspect of her musculoskeletal exam. The fact that no aspirate was able to be obtained for guidance is unusual for a septic total joint. It is possible that an MRI would provide more detailed information to be able to confirm the presence of an effusion as to whether there is any associated. Recommend following blood cultures for any fever spikes. She can be treated empirically until that time. Given her age and activity level, there is less urgency for joint irrigation debridement that is directed towards preserving cartilage. She continues to get sick, we can proceed more urgently. Until then I think it is more prudent to treat with antibiotics and evaluate whether this is isolated to the hip or there are other sources of infection, including osteomyelitis. The MRI may be helpful in that regard. History of Present Illness Reason for Consultation: possible hip effusion Attending Physician: Iris Snyder MD History of Present Illness 84-year-old female with a history of alcoholic encephalopathy admitted to [facility] for reduction in baseline function after being discharged from [facility]. She was noted to have diffuse joint pain and focal right hip pain. History is difficult to obtain given her encephalopathic nature. Family members do state that she has a circumduction gait and prefers ability to bear most weight on the right lower extremity. She had difficulty getting around lately before she had decreased mental function. Consult from the hospitalist service for was for concern of right hip effusion that was seen on a screening CT scan in the ED. She does have a UTI and potentially other sources of infection. We had recommended a hip aspiration attempt by radiology under fluoroscopy, however they were unable to get any fluid out. Allergies Allergy/AdvReac Type Severity Reaction Status Date / Time cefdinir Allergy Unknown Verified 06/17/19 19:08 clindamycin Allergy Unknown Verified 06/17/19 19:08 hydroxychloroquine Allergy Unknown Verified 06/17/19 19:08 fluconazole AdvReac Unknown Verified 06/17/19 19:08 Home Medications Home Medications Medication Instructions Recorded Confirmed Type acetaminophen [Tylenol] 650 mg PO Q6H PRN 06/17/19 06/17/19 History aspirin [Aspir-81] 81 mg PO DAILY 06/17/19 06/17/19 History atenolol 25 mg PO BID 06/17/19 06/17/19 History cholecalciferol (vitamin D3) 2,000 unit PO DAILY 06/17/19 06/17/19 History [Vitamin D3] diphenhydramine HCl 50 mg PO .Q24HRS PRN 06/17/19 06/17/19 History estradiol 0 mg TOPICAL 2XWK 06/17/19 06/17/19 History fexofenadine [Mindy Allergy] 60 mg PO DAILY 06/17/19 06/17/19 History flaxseed oil 1,000 mg PO DAILY 06/17/19 06/17/19 History ipratropium bromide 0 ml INHALATION QID 06/17/19 06/17/19 History latanoprost 1 drp OPHTHALMIC (EYE) PM 06/17/19 06/17/19 History levothyroxine 75 mcg PO DAILY 06/17/19 06/17/19 History lorazepam 1 mg PO DAILY PRN 06/17/19 06/17/19 History magnesium oxide 400 mg PO BID 06/17/19 06/17/19 History mirabegron [Myrbetriq] 50 mg PO DAILY 06/17/19 06/17/19 History multivitamin 1 tab PO DAILY 06/17/19 06/17/19 History omeprazole 20 mg PO BID 06/17/19 06/17/19 History polyethylene glycol 3350 [Miralax] 17 g PO DAILY 06/17/19 06/17/19 History simethicone 125 mg PO Q8 PRN 06/17/19 06/17/19 History Patient History Medical History Absolute glaucoma of both eyes Alcohol abuse Anxiety Dementia GERD (gastroesophageal reflux disease) Hyperlipidemia Hypertension Hypothyroid Neuromuscular dysfunction of bladder, unspecified Social History Preferred Language: [place] Expert Required: No Current Living Situation: Intermediate Feels Safe at Home: Declines to Answer Smoking Status: Unknown if ever smoked Review of Systems Review of Systems: Unable to perform review of systems due to lack of participation from the patient. Neurologic: + gait abnormality Physical Exam Physical Exam: On exam this morning, she is lying supine with head of bed elevated approximate 45 degrees. She is monitoring but has unintelligible words. She is seen to be cooperative for exam and not combative. Right lower extremity: The hip is without overlying. The right knee is without effusion. She does have discomfort reaction with logroll and attempts at passive straight leg raise. She does plantarflex and dorsiflex her ankle minimally on command. Left lower extremity: Similarly there is no evidence of ecchymosis she has no indication of pain with logroll of the left lower extremity. She does have moderate effusion on her left knee there is no pain on palpation nor discomfort reaction with passive range of motion of the knee. Results & Data Vital Signs (Past 12 Hours) Vital Signs Temp Pulse Pulse Pulse Resp BP BP 06/20/19 12:46 110 H 152/82 H 06/20/19 11:22 36.5 C 101 H 20 06/20/19 07:44 36.5 C 98 H 20 06/20/19 07:21 99 H 06/20/19 03:45 37 C 105 H 22 157/81 H BP Pulse Ox 06/20/19 12:46 06/20/19 11:22 152/82 H 94 06/20/19 07:44 135/85 93 06/20/19 07:21 06/20/19 03:45 94 Laboratory Tests 06/19/19 06/20/19 06/20/19 16:20 06:50 06:50 Hgb 12.4 Hct 39.1 INR 1.2 H Sodium 144 Chloride 112 H Albumin 1.7 L Imaging: There are no x-rays reviewed. There was a CT the chest abdomen pelvis. Imaging through the femoral acetabular joints demonstrate evidence of chondrocalcinosis in both sides. I reviewed the radiologist interpretation that there is complex effusion about the right hip. PG Care Time/CCT Total # of Minutes Spent Total Time Spent with Patient: Total time spent is greater than 50% in coordination of care (as documented) at patient's floor/unit and/or counseling patient:
--- NOTE | 2019-06-20 15:52 | Palliative Care Consultation ---
Date of Consultation June 20, 2019 Assessment & Plan (1) Goals of care, counseling/discussion: -84 year old female patient with PMH significant for early dementia, alcoholism, htn, hypothyroidism, and others, presented to [facility] with altered mental status and failure to thrive from the [facility]. Patient recently in May presented to [facility] in [place], where patient is from, with c/o frequent falls, alcoholism, declining mental status, and incontinence of bowel and bladder. At that time, patient's described that she has been declining for about six months and he was no longer able to care for her. It's difficult to tell from the history, but essentially it seems as though the patient's relinquished his rights as her decision maker. Psychiatry saw the patient at [facility] and deemed the patient incapable of making decisions at this time and recommended starting Aricept and Namenda to see if her mental status improved. The Office of Aging got involved and applied for emergency guardianship which they were granted from 06/13-06/30/19. The patient was placed in the [facility] for ongoing care where she apparently continued to do poorly by not eating/drinking, not getting out of bed, overall failure to thrive type picture. She is now being treated for Wernicke's encephalopathy and a UTI, but her overall condition is really not improving. She remains lethargic, confused, not eating/drinking, continued weakness, etc. Patient is a full code, her goals of care are unknown. Palliative care is consulted to establish goals of care and medical decision maker. -Met with patient in room 250-1. She does wake up easily, but is lethargic and drowsy. Stated, "At home," when asked where she was. She said "no" when asked if she was in pain. Falls asleep during conversation. Unable to participate in meaningful discussion. -Called patient's guardian through [facility] Aging, Emily ([phone]). She states that patient's , Dr. Mikhail Maravilla, and her two adult children, Carl Hinkle ([phone]) and Mone Hooper ([phone]) are still involved in patient's life and care, but all decision making must go through Office of Aging. They currently have temporary guardianship, and there will be a hearing for permanent guardianship in June 2019. At that time, if patient's children want to be present to obtain guardianship, they may do so and the record center specialist will decide. -I gave Emily medical update and our concern that the patient seems to overall be failing/not improving despite treatment, she is currently a full code, etc. Asked about goals of care and patient's wishes. Emily states that due to the legal nature of things and since the patient is unable to voice her wishes at this time, the patient will remain a full code at this time unless there is an urgent medical condition that could cause patient's demise and/or she enters an end-stage terminal condition. If that does occur, we could certainly get the family's input on patient's goals of care, but the ultimate decision would need to go through Office of Aging. -I will remain involved during hospitalization and contact patient's family tomorrow to get their input and give update. Dr. Snyder was updated as well. (2) Wernicke encephalopathy: (3) Acute UTI: (4) Alcoholism: History of Present Illness Attending Physician: Iris Snyder MD History of Present Illness This 84 year old female patient with PMH significant for early dementia, alcoholism, htn, hypothyroidism, and others, presented to [facility] with altered mental status and failure to thrive from the [facility]. Patient recently in May presented to [facility] in [place], where patient is from, with c/o frequent falls, alcoholism, declining mental status, and incontinence of bowel and bladder. At that time, patient's described that she has been declining for about six months and he was no longer able to care for her. It's difficult to tell from the history, but essentially it seems as though the patient's relinquished his rights as her decision maker. Psychiatry saw the patient at [facility] and deemed the patient incapable of making decisions at this time and recommended starting Aricept and Namenda to see if her mental status improved. The Office of Aging got involved and applied for emergency guardianship which they were granted from 06/13-06/30/19. The patient was placed in the [facility] for ongoing care where she apparently continued to do poorly by not eating/drinking, not getting out of bed, overall failure to thrive type picture. She is now being treated for Wernicke's encephalopathy and a UTI, but her overall condition is really not improving. She remains lethargic, confused, not eating/drinking, continued weakness, etc. Patient is a full code, her goals of care are unknown. Palliative care is consulted to establish goals of care and medical decision maker. Thank you kindly for this consult. Palliative care team will follow as needed. Allergies Allergy/AdvReac Type Severity Reaction Status Date / Time cefdinir Allergy Unknown Verified 06/17/19 19:08 clindamycin Allergy Unknown Verified 06/17/19 19:08 hydroxychloroquine Allergy Unknown Verified 06/17/19 19:08 fluconazole AdvReac Unknown Verified 06/17/19 19:08 Home Medications Home Medications Medication Instructions Recorded Confirmed Type acetaminophen [Tylenol] 650 mg PO Q6H PRN 06/17/19 06/17/19 History aspirin [Aspir-81] 81 mg PO DAILY 06/17/19 06/17/19 History atenolol 25 mg PO BID 06/17/19 06/17/19 History cholecalciferol (vitamin D3) 2,000 unit PO DAILY 06/17/19 06/17/19 History [Vitamin D3] diphenhydramine HCl 50 mg PO .Q24HRS PRN 06/17/19 06/17/19 History estradiol 0 mg TOPICAL 2XWK 06/17/19 06/17/19 History fexofenadine [Mindy Allergy] 60 mg PO DAILY 06/17/19 06/17/19 History flaxseed oil 1,000 mg PO DAILY 06/17/19 06/17/19 History ipratropium bromide 0 ml INHALATION QID 06/17/19 06/17/19 History latanoprost 1 drp OPHTHALMIC (EYE) PM 06/17/19 06/17/19 History levothyroxine 75 mcg PO DAILY 06/17/19 06/17/19 History lorazepam 1 mg PO DAILY PRN 06/17/19 06/17/19 History magnesium oxide 400 mg PO BID 06/17/19 06/17/19 History mirabegron [Myrbetriq] 50 mg PO DAILY 06/17/19 06/17/19 History multivitamin 1 tab PO DAILY 12/27/19 12/27/19 History omeprazole 20 mg PO BID 06/17/19 06/17/19 History polyethylene glycol 3350 [Miralax] 17 g PO DAILY 06/17/19 06/17/19 History simethicone 125 mg PO Q8 PRN 06/17/19 06/17/19 History Patient History Medical History Absolute glaucoma of both eyes Alcohol abuse Anxiety Dementia GERD (gastroesophageal reflux disease) Hyperlipidemia Hypertension Hypothyroid Neuromuscular dysfunction of bladder, unspecified Social History Preferred Language: [place] Works Manager Required: No marital status: Current Living Situation: Long-Term Feels Safe at Home: Declines to Answer Smoking Status: Unknown if ever smoked Review of Systems Review of Systems: Unobtainable due to cognitive status (was able to voice "no" to pain ) Physical Exam Constitutional: + frail appearing (elderly); no acute distress ENMT: external ear and nose normal, oropharynx normal Neck: normal visual inspection Respiratory: normal respiratory effort, lungs clear to auscultation Cardiovascular: RRR, no murmur, no edema Gastrointestinal (Abdomen): Inspection/Auscultation: normal bowel sounds Percussion/Palpation: abdomen soft Neurologic: moves all extremities, awake (but lethargic) and + confused Psychiatric: Orientation: oriented to person; + not oriented to place and + not oriented to time Insight: + poor insight Results & Data Vital Signs (Past 12 Hours) Vital Signs Temp Pulse Pulse Pulse Resp BP BP 06/20/19 14:59 95 H 06/20/19 14:55 36.3 C L 94 H 20 06/20/19 12:46 110 H 152/82 H 06/20/19 11:22 36.5 C 101 H 20 06/20/19 07:44 36.5 C 98 H 20 06/20/19 07:21 99 H 06/20/19 03:45 37 C 105 H 22 157/81 H BP Pulse Ox 06/20/19 14:59 06/20/19 14:55 135/80 94 06/20/19 12:46 06/20/19 11:22 152/82 H 94 06/20/19 07:44 135/85 93 06/20/19 07:21 06/20/19 03:45 94 Time Spent Midlevel 70 minutes with >50% of the time spent at bedside with patient, guardian, binder caser, and physician discussing condition and GOC.
[2019-06-20] MEDS: FAMOTIDINE 20 MG in SYRINGE 3 ML IV SCH (20:38)
--- NOTE | 2019-06-20 22:58 | Magnetic Resonance Report ---
MRI OF THE RIGHT HIP WITHOUT CONTRAST CLINICAL HISTORY: Infection. COMPARISON STUDY: CT of the abdomen and pelvis June 19, 2019. TECHNIQUE: Utilizing a 1.5 Katy magnet, multiplanar, multiecho imaging of the right hip was performe d without intravenous or intra-articular contrast. FINDINGS: A Lr balloon within the bladder is noted. The sacroiliac joints and symphysis pubis are intact. There is no marrow edema to suggest osteomyelitis. There is no evidence for avascular necrosi s. A moderate sized right hip joint effusion is noted. There is a small left hip joint effusion. The right trochanteric bursa is distended. No suspicious osseous lesion is noted. There is no fracture. N ote is made of moderate edema within the soft tissues, including the musculature adjacent to the righ t hip. This includes the right adductor, iliopsoas and obturator muscles. This also involves the visu alized portions of the quadriceps. Small amount of fluid the origin of the hamstrings is noted. Mild edema within the left adductor musculature is also noted. Other than the distended psoas bursa, no ad ditional significant fluid collections are noted. There is moderate presacral fluid. IMPRESSION: 1. Moderate right hip joint effusion. Sterility of the joint effusion cannot be assessed by MRI. No e vidence for osteomyelitis. 2. Moderate soft tissue edema adjacent to the right hip, including the adjacent musculature. This rep resents a nonspecific myositis. An infectious etiology cannot be excluded. 3. Distended right trochanteric bursa. ACT 112: Negative or not required by law. Electronically signed by: Vipul Blanchard M.D. 06/20/2019 10:57 PM
[2019-06-21] MEDS: KETOROLAC TROMETHAMINE 15 MG/ML VIAL IV SCH ×2 (02:46→08:44)
[2019-06-21] MEDS ORDERED: VANCOMYCIN TROUGH ONE (05:30)
[2019-06-21] MEDS: VANCOMYCIN HCL 750 MG in SODIUM CHLORIDE 0.9% 250 ML IV SCH ×2 (06:11→18:15)
[2019-06-21] MEDS: METOPROLOL TARTRATE 1 MG/ML VIAL IV PRN (06:23)
[2019-06-21] MEDS: LEVOTHYROXINE SODIUM 37.5 MCG in SYRINGE 0 ML IV SCH (08:44)
[2019-06-21] MEDS: PIPERACILLIN/TAZOBACTAM 3.375 GM in DEXTROSE 5% 100 ML IV SCH ×3 (08:44→23:12)
[2019-06-21] MEDS: THIAMINE HCL 500 MG in SODIUM CHLORIDE 0.9% 50 ML IV SCH ×3 (08:45→20:25)
--- NOTE | 2019-06-21 09:22 | Orthopedic Progress Note ---
Date of Service June 21, 2019 Assessment & Plan (1) Right hip joint effusion: MRI positively defines the hip effusion and reveals no areas of osteomyelitis about the hip or pelvis region. It remains uncertain if fluid is inflammatory or infectious. Lack of productive aspiration argues against infectious process. She seemed generally improved this am. Accessing the fluid is the only way to rule out infection, and it will likely require anesthesia given previous attempt at aspiration. If it is felt that infectious origin remains an issue, options include repeat attempt at aspiration versus surgical open or arthroscopic hip irrigation and debridement. Can continue to follow progress and continue to empirically treat infectious sources. Can track with WBC, ESR/CRP. Will discuss options with primary team. Subjective Josette more conversant this am but not able to consistently answer questions. Wants to go 'home.' Chart reviewed. Imaging reviewed. Physical Exam Physical Exam: Lying in bed, awake and alert. Oriented to person only. Mutters unintelligible words but does describe pain in her central pelvis and right groin. Less animated today on lower extremity exam - appears better and more comfortable. RLE: Nontender along pelvic brim/symphysis and right groin/hip joint region. Nontender over greater troch. Tolerates logroll of RLE without indication of pain - she inconsistently answers yes when asked if log roll hurts. She was able to participate in straight leg raise - activated quad and seemed comfortable but said 'yes' when asked if it hurt. +EHL/DF/PF. Nontender about the knee. Mild R knee effusion. LLE: no indication of pain on logroll. no L knee effusion. Results & Data Vital Signs (Past 12 Hours) Vital Signs Temp Pulse Pulse Resp BP BP BP 06/21/19 08:00 100 H 06/21/19 06:25 36.6 C 20 138/81 06/21/19 06:23 106 H 138/81 06/21/19 02:29 36.6 C 85 20 159/95 H 06/20/19 23:30 36.6 C 102 H 87 20 133/74 06/20/19 22:22 99 H 132/79 Pulse Ox 06/21/19 08:00 06/21/19 06:25 96 06/21/19 06:23 06/21/19 02:29 95 06/20/19 23:30 95 06/20/19 22:22 MR images and interpretation reviewed. Agree there increased joint fluid in R hip vs left, consistent with moderate effusion. There is diffuse fluid between muscle planes, with largest collection at the trochanteric bursal region. Cannot differentiate between infection or inflammatory etiology. PG Care Time/CCT Total # of Minutes Spent Total Time Spent with Patient: Total time spent is greater than 50% in coordination of care (as documented) at patient's floor/unit and/or counseling patient:
--- NOTE | 2019-06-21 09:41 | Pharmacy Report ---
Pharmacy Abx Dose Short Note - Date of Service June 21, 2019 - Assessment & Plan A/p Patient meets criteria for vancomycin AUC dosing nomogram - per provider's progress notes, pt's clinical status is improving. Renal fxn has remained fairly stable. We will continue with current dose and frequency. AUC/DEYSI is the preferred PK/PD target for vancomycin Target AUC/DEYSI = 400-600 Trough level of 11 mcg/mL is predicted to achieve target AUC/DEYSI AUC guided dosing is effective and associated with decreased risk of nephrotoxicity Trough levels poorly correlate with AUC/DEYSI and trough monitoring has been associated with increased risk of nephrotoxicity Pharmacy will continue to follow and will adjust dose/frequency as necessary. Thank you.
[2019-06-21] MEDS: predniSONE 20 MG TAB PO SCH (11:02)
[2019-06-21] MEDS: ATENOLOL 25 MG TABLET PO SCH ×2 (11:02→20:30)
[2019-06-21] MEDS: MAGNESIUM OXIDE 400 MG TAB PO SCH ×2 (11:02→20:30)
[2019-06-21] MEDS: MULTIVITAMIN TAB PO SCH (11:02)
[2019-06-21] MEDS: POLYETHYLENE (MIRALAX) 17 GM PACK PO SCH (11:02)
[2019-06-21] MEDS: PANTOprazole 40 MG TAB PO SCH ×2 (11:02→20:30)
[2019-06-21 11:21] LABS: Basophils # (auto) 0.01 K/uL (0-0.2); Basophils % (auto) 0.1 %; Eosinophils # (auto) 0.27 K/uL (0-0.5); Eosinophils % (auto) 3.4 %; Hematocrit (blood only) 36.6 % (37-47); Immature Granulocytes # (auto) 0.02 K/uL (0.00-0.02); Immature Granulocytes % (auto) 0.2 %; Lymphocytes # (auto) 0.65 K/uL (1.2-3.4); Lymphocytes % (auto) 8.1 %; Mean Corpuscular Hemoglobin 34.6 pg (25-34); Mean Corpuscular Hgb Conc 32.8 g/dL (32-36); Mean Corpuscular Volume 105.5 fL (80-100); Mean Platelet Volume 11.9 fL (7.4-10.4); Monocytes # (auto) 0.57 K/uL (0.11-0.59); Monocytes % (auto) 7.1 %; Neutrophils % (auto) 81.1 %; Platelet Count 301 K/uL (130-400); RDW Coefficient of Variation 13.4 % (11.5-14.5); RDW Standard Deviation 51.9 fL (36.4-46.3); Red Blood Count 3.47 M/uL (4.2-5.4); White Blood Count 8.02 K/uL (4.8-10.8)
[2019-06-21 11:49] LABS: BUN Creatinine Ratio 39.3 (10-20); C Reactive Protein 11.2 mg/dl (0-0.29); Calcium 8.7 mg/dl (8.5-10.1); Creatinine Clr Calc Pharmacy 68.9 ml/min; Est GFR (African American) 104.5; Est GFR (Non-African American) 90.1; Potassium 3.1 mmol/L (3.5-5.1)
--- NOTE | 2019-06-21 13:40 | Hospitalist Progress Note ---
Date of Service June 21, 2019 Assessment & Plan (1) Right hip joint effusion: Concern for septic joint given fever, WBC and CT imaging showing complex fluid collection. -not able to get right hip aspiration under fluoro guidance due to poor cooperation by patient MRI hip ordered by Ortho and no evidence of OM, it does confirm the joint effusion,. but cannot determine if is infectious. Ortho does say there is calcinosis in joint which could be consistent with crystal arthropathy--> will give empiric prednisone 20mg daily and see if helps Consult Ortho appreciated-if no improvement with pain, ESR, CRP after treating with prednisone, will possibly have surgical exploration Leukocytosis improved -continue vancomycin and Zosyn for now -follow ESR, CRP, CBC Blood cultures negative (2) Wernicke encephalopathy: Concern for Wernicke's/Korsakoff given history of recurrent falls leading to memory impairement, delirium and eventual apathy. Thiamine level taken after Banana bag in ER therefore whatever the result I am still concerned for this. Continue IV thiamine 500mg TID for 1 more day then 200mg daily. (3) Toxic encephalopathy: Baseline prior to [facility] admission on 05 June: Able to have full conversations. Possible undiagnosed dementia but appeared to be much worse during admission to [facility]. Recurrent falls prior to admission but started being completely immobile during that admission. She apparently was walking (with assistance) at [facility] but become more generalized fatigue, suspected due to Librium use which was discontinued on 11 June. [facility] notes suggest bed bound status, sleeping most of the day, not taking medication or much/any oral intake in general. -she did have one fever at [facility] on 11 June but blood cultures where negative and UA was apparently "clean for infection". She was deemed incompetent to make medical decisions at [facility] (although psychiatry assessment suggest a significant decline from to 10 June assessment. She now has a guardian in place from office of aging. Cannot be discharged without first discussing with guardian. Does seem improved today CT head unremarkable CT A/P performed to assess for ascites and there is none However findings concerning for septic arthritis despite no erythema on exam (see above) Also with UTI being treated (4) Hypernatremia: Was resolved with D5W, but now sodium rising again due to poor free water intake Hyperchloremia/natremia secondary to normal saline given on admission with dehydration. FOllow BMP (5) UTI (urinary tract infection): Continue Zosyn as above for hip Ur cx E. coli pansensitive Unclear if contributing towards current status but will continue to treat as a potentially reversible cause of encephalopathy (6) Alcoholism: No alcohol withdrawal as last alcohol drink suspected to be around 04 June. She had a positive ethanol level on admission to [facility] on and was treated with Librium there for suspected alcohol withdrawal. I suspect this is the first time she has been sober for quite some time. (7) Sinus tachycardia: ?secondary to dehydration vs. reflex from atenolol discontinuation vs. appropriate in setting of infection. One episode of SVT on 06/18 which spontaneously resolved. -restarted atenolol (8) DVT prophylaxis: lovenox 40mg sq daily (9) Discharge planning issues: Family do not wish her to go back to [facility] (although actual decision down to office of aging). PT/OT Highly recommend stability for at least 48 hours prior to discharge as previously discharged to [facility] just after stopping her IV fluids and clearly was not drinking enough there. Continued stay for IV abx and reassessment of possible infected hip PT/OT evals ordered and pt refused Subjective at bedside today and said he sees a big improvement in her mental status in the last few days. She is more conversive although remains confused, and is eating meals now more than she has in a loing time. Discussed case with Orthopedic Surgery. No role for surgery at this time, but maybe in future if not improving Pt does report pain in hip when asked, but denies CP, SOB. Review of Systems Review of Systems: Unobtainable due to cognitive status Physical Exam Constitutional: average body habitus; no acute distress Eyes: + anicteric sclerae Neck: trachea midline, no thyromegaly Respiratory: normal respiratory effort, lungs clear to auscultation Cardiovascular: RRR, no murmur, no edema Chest (Breasts): Chest: normal inspection of chest Gastrointestinal (Abdomen): normal bowel sounds, soft, nontender, no hepatosplenomegaly Musculoskeletal: Extremities: extremities normal to inspection; no cyanosis and no clubbing Skin: no rashes, warm and dry Neurologic: moves all extremities and awake; no focal motor deficits Psychiatric: Orientation: alert, oriented to person, cooperative and + guarded; + not oriented to place ("[place]") and + not oriented to time ("1989" for the year) Eye Contact: + fair eye contact Insight: + poor insight Judgement: + poor judgement Lymphatic: no lymphedema Results & Data Vital Signs (Past 12 Hours) Vital Signs Temp Pulse Pulse Resp BP BP Pulse Ox 06/21/19 11:23 36.8 C 89 20 145/82 H 95 06/21/19 08:00 100 H 06/21/19 06:25 36.6 C 20 138/81 96 06/21/19 06:23 106 H 138/81 06/21/19 02:29 36.6 C 85 20 159/95 H 95 Laboratory Results labs reviewed PG Care Time/CCT Total # of Minutes Spent Total Time Spent with Patient: Total time spent is greater than 50% in coordination of care (as documented) at patient's floor/unit and/or counseling patient: (1) UTI (urinary tract infection) Hematuria presence: with hematuria Urinary tract infection type: acute cystitis Qualified Code(s): N30.01 - Acute cystitis with hematuria
[2019-06-21] MEDS: POTASSIUM CHLORIDE / WTR 10 MEQ/100 ML PLCT IV SCH ×4 (14:48→18:15)
[2019-06-21] MEDS: LATANOPROST 0.005% OP SOLN 2.5 ML BTL OP SCH (20:31)
[2019-06-21] MEDS: ENOXAPARIN INJ 40 MG/0.4 ML SYR SQ SCH (20:31)
[2019-06-22] MEDS: VANCOMYCIN HCL 750 MG in SODIUM CHLORIDE 0.9% 250 ML IV SCH ×2 (05:34→18:24)
[2019-06-22] MEDS: LEVOTHYROXINE SODIUM 75 MCG TABLET PO SCH (05:35)
[2019-06-22] MEDS: POLYETHYLENE (MIRALAX) 17 GM PACK PO SCH (07:24)
[2019-06-22] MEDS: THIAMINE HCL 500 MG in SODIUM CHLORIDE 0.9% 50 ML IV SCH ×2 (08:13→14:48)
[2019-06-22] MEDS: PIPERACILLIN/TAZOBACTAM 3.375 GM in DEXTROSE 5% 100 ML IV SCH ×2 (08:13→15:33)
[2019-06-22 09:44] LABS: BUN Creatinine Ratio 23.2 (10-20); C Reactive Protein 6.09 mg/dl (0-0.29); Calcium 8.7 mg/dl (8.5-10.1); Creatinine Clr Calc Pharmacy 69.1 ml/min; Est GFR (African American) 104.5; Est GFR (Non-African American) 90.1; Potassium 3.2 mmol/L (3.5-5.1)
--- NOTE | 2019-06-22 10:01 | Orthopedic Progress Note ---
Date of Service June 22, 2019 Assessment & Plan (1) Right hip joint effusion: Josette continues to have some indication hip pain. She is not back to baseline in regards to mental status, apparently. I discussed the case with my partners Dr. Alex and Dr. Herrera. An elective washout would be the most conservative measure at this point, given that she has some hip pain, high inflammatory markers, and noted effusion on MRI. Accessing the fluid is the only way to rule out infection; therefore, I filled out a consent form for right hip irrigation and debridement. Of asked the nursing staff to reach out to the office of aging for the consent process. If she makes dramatic improvement tomorrow, we can hold on the surgery. Otherwise I would plan to perform the irrigation debridement to eradicate any hip joint infection when possible. Likely this will be late day tomorrow. Keep n.p.o. after midnight tonight Can continue to follow progress and continue to empirically treat infectious sources. Can track with WBC, ESR/CRP - CRP did decrease. Subjective Evaluated at the time of the wildlife refuge specialist attempted lab work. Josette does respond to verbal questions, however inconsistent once again today. When asked if she has pain to the hip, she does not. Physical Exam Physical Exam: She is awake and alert and responsive to questions. Her answers are inconsistent. Right lower extremity: I can aggressively logroll her hip today with minimal indication of discomfort. She did have some apparent tenderness over the greater trochanter however, which was not present yesterday. Her knee continues to have a benign appearing moderate effusion. She has no irritability with palpation or range of motion of this knee. Results & Data Vital Signs (Past 12 Hours) Vital Signs Temp Pulse Pulse Pulse Resp BP BP 06/22/19 07:42 73 06/22/19 07:18 36.5 C 73 20 150/78 H 06/22/19 03:19 36.8 C 88 19 152/79 H 06/21/19 23:39 86 06/21/19 23:35 36.3 C L 88 20 166/95 H Pulse Ox 06/22/19 07:42 06/22/19 07:18 96 06/22/19 03:19 93 06/21/19 23:39 06/21/19 23:35 96 Laboratory Tests 06/21/19 06/21/19 06/21/19 10:57 10:57 10:57 WBC 8.02 Hgb 12.0 Hct 36.6 L ESR > 90 H Creatinine 0.50 L C-Reactive Protein 11.20 H Laboratory Tests 06/22/19 09:08 C-Reactive Protein 6.09 H PG Care Time/CCT Total # of Minutes Spent Total Time Spent with Patient: Total time spent is greater than 50% in coordination of care (as documented) at patient's floor/unit and/or counseling patient:
[2019-06-22] MEDS: MAGNESIUM OXIDE 400 MG TAB PO SCH ×2 (10:11→21:10)
[2019-06-22] MEDS: predniSONE 20 MG TAB PO SCH (10:11)
[2019-06-22] MEDS: MULTIVITAMIN TAB PO SCH (10:11)
[2019-06-22] MEDS: PANTOprazole 40 MG TAB PO SCH ×2 (10:11→21:10)
[2019-06-22] MEDS: CHOLECALCIFEROL 1,000 UNITS TAB PO SCH (10:12)
[2019-06-22] MEDS: ATENOLOL 25 MG TABLET PO SCH ×2 (10:12→21:10)
--- NOTE | 2019-06-22 17:41 | Hospitalist Progress Note ---
Date of Service June 22, 2019 Assessment & Plan (1) Right hip joint effusion: Concern for septic joint given fever, WBC and CT imaging showing complex fluid collection. -not able to get right hip aspiration under fluoro guidance due to poor cooperation by patient MRI hip ordered by Ortho and no evidence of OM, it does confirm the joint effusion,. but cannot determine if is infectious. -Continue antibiotics, serial exams. If no improvement into tomorrow, orthopedics plans to washout the joint, which may be necessary for making a sure diagnosis. (2) Wernicke encephalopathy: Concern for Wernicke's/Korsakoff given history of recurrent falls leading to memory impairement, delirium and eventual apathy. -Empiric high-dose thiamine supplementation underwaychanged to 200 mg daily. -Serial exams, supportive care (3) Toxic encephalopathy: Baseline reported prior to [facility] admission on 05 June: Able to have full conversations. Possible undiagnosed dementia but appeared to be much worse during admission to [facility]. Recurrent falls prior to admission but started being completely immobile during that admission. She apparently was walking (with assistance) at [facility] but become more generalized fatigue, suspected due to Librium use which was discontinued on 11 June. [facility] notes suggest bed bound status, sleeping most of the day, not taking medication or much/any oral intake in general. -she did have one fever at [facility] on 11 June but blood cultures where negative and UA was apparently "clean for infection". She was deemed incompetent to make medical decisions at [facility] (although psychiatry assessment suggest a significant decline from to 10 June assessment. She now has a guardian in place from office of aging. Cannot be discharged without first discussing with guardian. CT head unremarkable CT A/P performed to assess for ascites and there is none However findings concerning for septic arthritis despite no erythema on exam (see above) Does not entirely examine consistent with a simple delirium/metabolic encephalopathy, but hopefully this could be the case. Continue serial exams and supportive care. (4) Hypernatremia: Improvedcontinue to follow, follow oral intake and follow-up basic metabolic panel Replace and follow for hypokalemia (5) UTI (urinary tract infection): Continue Zosyn as above for hip Ur cx E. coli pansensitive Unclear if contributing towards current status but will continue to treat as a potentially reversible cause of encephalopathy, see above otherwise (6) Alcoholism: No alcohol withdrawal as last alcohol drink suspected to be around 04 June. She had a positive ethanol level on admission to [facility] on and was treated with Librium there for suspected alcohol withdrawal. Thiamine supplementation as above (7) Sinus tachycardia: ?secondary to dehydration vs. reflex from atenolol discontinuation vs. appropriate in setting of infection. One episode of SVT on 06/18 which spontaneously resolved. -restarted atenolol, appears to be doing well in this regard now (8) DVT prophylaxis: lovenox 40mg sq daily (9) Discharge planning issues: Family do not wish her to go back to [facility] (although actual decision down to office of aging). PT/OT ongoing eval and treat Oral intake appears to be quite suspect and this could be an issue outside of the hospital setting Continued stay for IV abx and reassessment of possible infected hip Stable on MedSurg Subjective All HPI and review of systems of very questionable veracityespecially because almost constantly throughout the interview and exam the patient asks for kristopher, wonders where he is, and repeatedly asks what he thinks about things, in spite of my repeatedly reminding her that he is not in the room at this time. She denies any hip pain, notes that she was up and around to the bathroom without a whole lot of difficulty, then later after exam yields that moving the hip even a little is exquisitely tender, she notes that it only hurts whenever she works hard on it. No fevers chills or sweats. Again very questionable the accuracy/veracity of her HPI and review of systems given her mental status. Review of Systems Review of Systems: Unobtainable due to cognitive status See above Physical Exam Physical Exam: In general she is awake and alert, questionable orientationtalking to person not in the room repeatedly. HEENT normocephalic atraumatic mucous membranes are moist. Breathing is unlabored no accessory muscle use good effort. Skin shows no rashes no pallor or icterus. Right hip exam shows exquisite tenderness even to flexion past about 45 degreesbecause of how tender it is full exam was not able to be undertaken. Extremities show no cyanosis clubbing or edema, no calf tenderness. No focal neuro deficits obviously present Results & Data Vital Signs (Past 12 Hours) Vital Signs Temp Pulse Pulse Resp BP Pulse Ox 06/22/19 15:52 97.9 F 80 20 152/80 H 06/22/19 15:27 85 06/22/19 11:42 97.3 F L 82 20 160/78 H 97 06/22/19 07:42 73 06/22/19 07:18 97.7 F 73 20 150/78 H 96 PG Care Time/CCT Total # of Minutes Spent Total Time Spent with Patient: Total time spent is greater than 50% in coordination of care (as documented) at patient's floor/unit and/or counseling patient: (1) UTI (urinary tract infection) Urinary tract infection type: acute cystitis Hematuria presence: with hematuria Qualified Code(s): N30.01 - Acute cystitis with hematuria
[2019-06-22] MEDS ORDERED: POTASSIUM CHLORIDE 20 MEQ TABCR PO STA (17:42)
[2019-06-22] MEDS: ENOXAPARIN INJ 40 MG/0.4 ML SYR SQ SCH (21:09)
[2019-06-22] MEDS: LATANOPROST 0.005% OP SOLN 2.5 ML BTL OP SCH (21:10)
[2019-06-23] MEDS: PIPERACILLIN/TAZOBACTAM 3.375 GM in DEXTROSE 5% 100 ML IV SCH ×3 (00:35→16:35)
[2019-06-23] MEDS: VANCOMYCIN HCL 750 MG in SODIUM CHLORIDE 0.9% 250 ML IV SCH ×2 (05:46→18:12)
[2019-06-23] MEDS: LEVOTHYROXINE SODIUM 75 MCG TABLET PO SCH (05:50)
[2019-06-23 07:09] LABS: BUN Creatinine Ratio 19.8 (10-20); Calcium 8.7 mg/dl (8.5-10.1); Creatinine Clr Calc Pharmacy 67.4 ml/min; Est GFR (African American) 103.8; Est GFR (Non-African American) 89.5; Potassium 3.2 mmol/L (3.5-5.1)
[2019-06-23] MEDS: MULTIVITAMIN TAB PO SCH (08:06)
[2019-06-23] MEDS: CHOLECALCIFEROL 1,000 UNITS TAB PO SCH (08:06)
[2019-06-23] MEDS: MAGNESIUM OXIDE 400 MG TAB PO SCH ×2 (08:06→20:46)
[2019-06-23] MEDS: predniSONE 20 MG TAB PO SCH (08:06)
[2019-06-23] MEDS: ATENOLOL 25 MG TABLET PO SCH ×2 (08:06→20:46)
[2019-06-23] MEDS: POLYETHYLENE (MIRALAX) 17 GM PACK PO SCH (08:07)
[2019-06-23] MEDS: PANTOprazole 40 MG TAB PO SCH ×2 (08:07→20:45)
[2019-06-23] MEDS: THIAMINE HCL 200 MG in SODIUM CHLORIDE 0.9% 50 ML IV SCH (08:11)
--- NOTE | 2019-06-23 13:01 | Orthopedic Progress Note ---
Date of Service June 23, 2019 Assessment & Plan (1) Right hip joint effusion: Josette is less irritable on hip exam today. Nevertheless, an elective washout would be the most conservative measure at this point, given that her history telling is completely unreliable, she has some hip pain, high inflammatory markers, and noted effusion on MRI. She is consented to the office of aging for right hip irrigation and debridement. I would involve Dr. Alex in his case as well for expediency ba sed on or availability. After discussion today, I think it is okay to wait tomorrow given her clinical picture is improving. She is tentatively scheduled for the I&D late morning in the main OR. Keep n.p.o. after midnight tonight Can continue to follow progress and continue to empirically treat infectious sources. Can track with WBC, ESR/CRP - CRP did decrease. Subjective Josette denies that she is in pain today. When asking the nursing assistants, she has not been ambulatory and her responses been inconsistent. Physical Exam Physical Exam: Once again, she is lying in bed with head of bed elevated. She is muttering some unintelligible words. Her answers to simple questions are inconsistent. At one point she commented how terrible it is to find out the dog is . Right lower extremity: The right knee has a persistent effusion that is benign- appearing. There is minimal to moderate and without associated erythema or warmth. The hip joint is less irritable today with evidence of vigorous logrolling not promoting any evidence of discomfort. She denies pain with that. She does have an area of tenderness over her greater trochanter that is inconsistent with the exam yesterday. She does not like to have the hip flex beyond 90. Again, his exam is limited by her participation ability. Overall, the hip is less irritable than the previous day. Results & Data Vital Signs (Past 12 Hours) Vital Signs Temp Pulse Resp BP BP Pulse Ox 06/23/19 11:25 36.5 C 72 16 149/84 H 95 06/23/19 07:23 36.6 C 89 16 173/82 H 93 06/23/19 04:00 36.4 C L 79 20 148/88 H 93 Laboratory Tests 06/23/19 06:06 ESR > 90 H PG Care Time/CCT Total # of Minutes Spent Total Time Spent with Patient: Total time spent is greater than 50% in coordination of care (as documented) at patient's floor/unit and/or counseling patient:
--- NOTE | 2019-06-23 16:40 | Anesthesiology Consultation ---
Date of Service June 23, 2019 Assessment & Plan Chart Review Chart Review: Acceptable Risk for Surgery and Patient NOT seen in Pre Admission Testing History Surgery Operation Date: 06/24/19 11:20 Proposed Procedures p Right Hip Incision and Drainage - Jr Alex DO Height/Weight Height: 5 ft Weight: 57.3 kg Allergies Allergy/AdvReac Type Severity Reaction Status Date / Time cefdinir Allergy Unknown Verified 06/17/19 19:08 clindamycin Allergy Unknown Verified 06/17/19 19:08 hydroxychloroquine Allergy Unknown Verified 06/17/19 19:08 fluconazole AdvReac Unknown Verified 06/17/19 19:08 Medications Home Medications Medication Instructions Recorded Confirmed Last Taken acetaminophen [Tylenol] 650 mg PO Q6H PRN 06/17/19 06/17/19 Unknown aspirin [Aspir-81] 81 mg PO DAILY 06/17/19 06/17/19 06/17/19 08:00 atenolol 25 mg PO BID 06/17/19 06/17/19 06/17/19 08:00 cholecalciferol (vitamin D3) 2,000 unit PO DAILY 06/17/19 06/17/19 06/17/19 0 8:00 [Vitamin D3] diphenhydramine HCl 50 mg PO .Q24HRS PRN 06/17/19 06/17/19 Unknown estradiol 0 mg TOPICAL [id number] 06/17/19 06/17/19 06/14/19 fexofenadine [Mindy Allergy] 60 mg PO DAILY 06/17/19 06/17/19 06/17/19 08:00 flaxseed oil 1,000 mg PO DAILY 06/17/19 06/17/19 06/17/19 08:00 ipratropium bromide 0 ml INHALATION QID 06/17/19 06/17/19 06/17/19 13:00 latanoprost 1 drp OPHTHALMIC (EYE) PM 06/17/19 06/17/19 06/16/19 levothyroxine 75 mcg PO DAILY 06/17/19 06/17/19 06/17/19 05:00 lorazepam 1 mg PO DAILY PRN 06/17/19 06/17/19 Unknown magnesium oxide 400 mg PO BID 06/17/19 06/17/19 06/17/19 08:00 mirabegron [Myrbetriq] 50 mg PO DAILY 06/17/19 06/17/19 06/17/19 08:00 multivitamin 1 tab PO DAILY 06/17/19 06/17/19 06/17/19 omeprazole 20 mg PO BID 06/17/19 06/17/19 06/17/19 08:00 polyethylene glycol 3350 [Miralax] 17 g PO DAILY 06/17/19 06/17/19 06/17/19 08:00 simethicone 125 mg PO Q8 PRN 06/17/19 06/17/19 Unknown Active Medications Generic Name Dose Route Start Last Admin Trade Name Freq PRN Reason Stop Dose Admin Atenolol 25 mg 06/21/19 09:05 06/23/19 08:06 Tenormin PO 07/21/19 09:04 25 mg BID NIGEL Administration Enoxaparin Sodium 40 mg 06/17/19 21:00 06/22/19 21:09 Lovenox SQ 07/17/19 20:59 40 mg Q24H NIGEL Administration Vancomycin HCl 750 mg/ Sodium 265 mls @ 125 mls/hr 06/20/19 06:00 06/23/19 08:03 Chloride IV 08/01/19 05:59 Infused Q12H NIGEL Infusion Protocol Piperacillin Sod/Tazobactam 115 mls @ 28.75 mls/hr 06/20/19 16:00 06/23/19 16:35 Sod 3.375 gm/ Dextrose IV 06/27/19 15:59 28.8 mls/hr Q8H NIGEL Administration Protocol Thiamine HCl 200 mg/ Sodium 52 mls @ 208 mls/hr 06/23/19 09:00 06/23/19 08:27 Chloride IV 07/23/19 08:59 Infused DAILY NIGEL Infusion Latanoprost 1 drops 06/21/19 21:00 06/22/19 21:10 Xalatan Oph OP 07/21/19 20:59 1 drops PM NIGEL Administration Levothyroxine Sodium 75 mcg 06/22/19 06:30 06/23/19 05:50 Synthroid PO 07/22/19 06:29 75 mcg DAILYBB NIGEL Administration Magnesium Oxide 400 mg 06/21/19 09:00 06/23/19 08:06 Mag-Ox PO 07/21/19 08:59 400 mg BID NIGEL Administration Metoprolol Tartrate 5 mg 06/18/19 08:49 06/21/19 06:23 Lopressor IV 07/18/19 11:59 5 mg Q4 PRN Administration HTN, tachycardia Multivitamins 1 tab 06/21/19 09:00 06/23/19 08:06 Multivitamin Tab PO 07/21/19 08:59 1 tab DAILY NIGEL Administration Pantoprazole Sodium 40 mg 06/21/19 09:00 06/23/19 08:07 Protonix PO 07/21/19 08:59 40 mg BID NIGEL Administration Polyethylene Glycol 17 gm 06/21/19 09:00 06/23/19 08:07 Miralax Powder Packet PO 07/21/19 08:59 Not Given DAILY NIGEL Prednisone 20 mg 06/21/19 09:45 06/23/19 08:06 Prednisone PO 07/21/19 09:44 20 mg DAILY NIGEL Administration Vitamin D 2,000 units 06/22/19 09:00 06/23/19 08:06 Vitamin D3 PO 07/22/19 08:59 2,000 units DAILY NIGEL Administration Past Medical History Medical History Absolute glaucoma of both eyes Alcohol abuse Anxiety Dementia GERD (gastroesophageal reflux disease) Goals of care, counseling/discussion Hyperlipidemia Hypertension Hypothyroid Neuromuscular dysfunction of bladder, unspecified Social History Smoking Status: Unknown if ever smoked Physical Exam Vital Signs Last Vital Signs Temp 36.6 C 06/23/19 15:23 Pulse 84 06/23/19 15:23 Resp 20 06/23/19 15:23 BP 163/96 H 06/23/19 15:23 Pulse Ox 94 06/23/19 15:23 Testing Laboratory Results 06/21/19 10:57 06/23/19 06:06 PT 11.9 Seconds (9.0-12.0) 06/19/19 16:20 INR 1.2 (0.9-1.1) H 06/19/19 16:20 APTT 28.6 Seconds (21.0-31.0) 06/19/19 16:20 Urine Color Dark Yellow 06/17/19 15:50 Urine Appearance Turbid (Clear) A 06/17/19 15:50 Urine pH 6.0 (4.5-7.5) 06/17/19 15:50 Ur Specific [place] 1.026 (1.000-1.030) 06/17/19 15:50 Urine Protein 1+ (Negative) H 06/17/19 15:50 Urine Glucose (UA) Negative (Negative) 06/17/19 15:50 Urine Ketones Negative (Negative) 06/17/19 15:50 Urine Nitrite Positive (Negative) A 06/17/19 15:50 Ur Leukocyte Esterase 3+ (Negative) H 06/17/19 15:50 Urine WBC (Auto) >30 /hpf (0-5) H 06/17/19 15:50 Urine RBC (Auto) >30 /hpf (0-4) H 06/17/19 15:50 U Hyaline Cast (Auto) 5-10 /lpf (0-5) H 06/17/19 15:50 U Epithel Cells (Auto) >30 /lpf (0-5) H 06/17/19 15:50 Urine Bacteria (Auto) 4+ (Negative) H 06/17/19 15:50 06/17/19 16:28 Aerobic Blood Culture - Final Blood No growth in Aerobic bottle after 5 days. Anaerobic Blood Culture - Final No growth in Anaerobic bottle after 5 days. 06/17/19 16:16 Aerobic Blood Culture - Final Blood No growth in Aerobic bottle after 5 days. Anaerobic Blood Culture - Final No growth in Anaerobic bottle after 5 days. 06/17/19 15:50 Urine Culture - Final Urine,Clean Catch Escherichia coli
--- NOTE | 2019-06-23 17:20 | Hospitalist Progress Note ---
Date of Service June 23, 2019 Assessment & Plan (1) Right hip joint effusion: Concern for septic joint given fever, WBC and CT imaging showing complex fluid collection. -not able to get right hip aspiration under fluoro guidance due to poor cooperation by patient MRI hip ordered by Ortho and no evidence of OM, it does confirm the joint effusion,. but cannot determine if is infectious. ESR quite elevated persistently greater than 90 despite starting prednisone, CRP also elevated, no leukocytosis, remains afebrile Remains with significant pain on examination -Continue broad-spectrum antibiotics, serial exams. Discussed extensively with orthopedics-now with plans to washout the joint tomorrow, which is necessary for making a sure diagnosis. -Continue to follow ESR, CRP, CBC, and blood cultures, and joint fluid cultures and analysis after surgery tomorrow -Continue Tylenol as needed for pain -We will discontinue prednisone at this time (2) Wernicke encephalopathy: Concern for Wernicke's/Korsakoff given history of recurrent falls leading to memory impairment, delirium and eventual apathy. Ongoing confusion and disinhibition of speech and thought process -Continue empiric high-dose thiamine supplementation underwaydecreased now to 200 mg daily. -Serial exams, supportive care -Add on low-dose of lorazepam as needed for anxiety and restlessness (3) Toxic encephalopathy: Baseline reported prior to [facility] admission on 05 June: Able to have full conversations. Possible undiagnosed dementia but appeared to be much worse during admission to [facility]. Recurrent falls prior to admission but started being completely immobile during that admission. She apparently was walking (with assistance) at [facility] but become more generalized fatigue, suspected due to Librium use which was discontinued on 11 June. [facility] notes suggest bed bound status, sleeping most of the day, not taking medication or much/any oral intake in general. -she did have one fever at [facility] on 11 June but blood cultures where negative and UA was apparently "clean for infection". She was deemed incompetent to make medical decisions at [facility] (although psychiatry assessment suggest a significant decline from to 10 June assessment. She now has a guardian in place from office of aging. Cannot be discharged without first discussing with guardian. CT head unremarkable CT A/P performed to assess for ascites and there is none However findings concerning for septic arthritis despite no erythema on exam (see above) Does not entirely examine consistent with a simple delirium/metabolic encephalopathy, but hopefully this could be the case. Continue serial exams and supportive care. (4) Hypernatremia: Resolvedcontinue to follow, follow oral intake and follow-up basic metabolic panel (5) UTI (urinary tract infection): Continue Zosyn as above for hip Ur cx E. coli pansensitive-she is already received enough days of treatment of antibiotics for UTI but continues on them for hip as above In hindsight, this was not likely contributing towards her encephalopathy as it should be cleared and she continues to be confused, see above otherwise (6) Alcoholism: No alcohol withdrawal as last alcohol drink suspected to be around 04 June. She had a positive ethanol level on admission to [facility] on and was treated with Librium there for suspected alcohol withdrawal. Thiamine supplementation as above -Start folic acid and multivitamin as well (7) Sinus tachycardia: Likely was secondary to dehydration vs. reflex from atenolol discontinuation vs. appropriate in setting of infection. One episode of SVT on 06/18 which spontaneously resolved. -restarted atenolol, appears to be doing well in this regard now With normal sinus rhythm and normal rates on the monitor -No further telemetry monitoring needed -DC IV metoprolol as not needed (8) Hypokalemia: Potassium down to 3.2 likely secondary to poor p.o. intake -Replace with potassium chloride -Follow BMP in the morning (9) DVT prophylaxis: lovenox 40mg sq daily-placed on hold for surgery tomorrow N.p.o. after midnight for surgery tomorrow (10) Discharge planning issues: Family do not wish her to go back to [facility] (although actual decision down to office of aging). PT/OT ongoing eval and treat Oral intake appears to be quite suspect and this could be an issue outside of the hospital setting Continued stay for IV abx and surgical washout of possible infected hip [facility] Discussed her care with her on the phone Subjective Patient still confused. Nursing reports that every time they walk in the room, the patient has removed her SCDs, throws the covers off onto the floor, and has ripped off her telemetry leads as well as broke her Lr catheter off at the connector site with urine spilling everywhere. When asked about pain in the hip, patient reports "better." However, on examination, she has exquisite pain with straight leg raise of the right lower extremity. Her ability to provide history is quite limited. She is also asking "where are all the dildos?" and saying "I can't wait to see my family doctor; he's so handsome." Telemetry with normal sinus rhythm with rates in the 70s to 80s, sinus arrhythmia, PVCs Review of Systems Review of Systems: All systems reviewed & are unremarkable except as noted in HPI & below Physical Exam Constitutional: average body habitus; no acute distress Eyes: + anicteric sclerae ENMT: external ear and nose normal, oropharynx normal Neck: trachea midline, no thyromegaly Respiratory: normal respiratory effort, lungs clear to auscultation Cardiovascular: RRR, no murmur, no edema Chest (Breasts): Chest: normal inspection of chest Gastrointestinal (Abdomen): normal bowel sounds, soft, nontender, no hepa tosplenomegaly Musculoskeletal: Extremities: extremities normal to inspection; no cyanosis and no clubbing Hip: + limited ROM of hip (Significant pain with straight leg raise on the right); hip normal to inspection, no deformity, no skin erythema and no ecchymosis Skin: no rashes, warm and dry Neurologic: moves all extremities and awake; no focal motor deficits Psychiatric: Orientation: alert, oriented to person, cooperative and + guarded; + not oriented to place ("[place]" but does not know the name of the place she is in or the state) and + not oriented to time ("1968" for the year) Eye Contact: + fair eye contact Insight: + poor insight Judgement: + poor judgement Genitourinary: Lr catheter being removed at the time I saw her Lymphatic: no lymphedema Results & Data Vital Signs (Past 12 Hours) Vital Signs Temp Pulse Resp BP BP Pulse Ox 06/23/19 15:23 36.6 C 84 20 163/96 H 94 06/23/19 11:25 36.5 C 72 16 149/84 H 95 06/23/19 07:23 36.6 C 89 16 173/82 H 93 Laboratory Results Labs reviewed, ESR remains greater than 90, potassium 3.2 Blood cultures no growth PG Care Time/CCT Total # of Minutes Spent Total Time Spent with Patient: Total time spent is greater than 50% in coordination of care (as documented) at patient's floor/unit and/or counseling patient: (1) UTI (urinary tract infection) Hematuria presence: with hematuria Urinary tract infection type: acute cystitis Qualified Code(s): N30.01 - Acute cystitis with hematuria
[2019-06-23] MEDS ORDERED: VANCOMYCIN TROUGH ONE (17:30)
[2019-06-23] MEDS: LORazepam 0.5 MG TAB PO PRN (17:35)
[2019-06-23] MEDS: LATANOPROST 0.005% OP SOLN 2.5 ML BTL OP SCH (20:45)
[2019-06-24] MEDS: PIPERACILLIN/TAZOBACTAM 3.375 GM in DEXTROSE 5% 100 ML IV SCH ×4 (01:00→23:36)
[2019-06-24] MEDS ORDERED: VANCOMYCIN TROUGH ONE (05:30)
--- NOTE | 2019-06-24 06:54 | Orthopedic Progress Note ---
Date of Service June 24, 2019 Assessment & Plan (1) Right hip joint effusion: We will proceed with an open I&D of the right hip. Consent has already been obtained. She has been n.p.o. past midnight tonight. We will obtained swab and soft tissue cultures during the procedure. Her and her family understand the risk, benefits, and alternatives to the procedure and have elected to proceed. Present on Admission?: Yes Jacek Finch is a 84-year-old female who continues to be demented and confused. Difficult to get any history and difficult to tell if her symptoms are improving. She continues to have right hip pain. She is generally not ambulatory because of the right hip. Imaging studies and lab results are suggestive of a possible infection of the right hip. We have obtained consent from her caregiver and we would like to proceed with a right hip irrigation and debridement later today. Physical Exam Musculoskeletal: On physical examination of her right hip, the leg lengths are equal. She has mild pain with logroll of the right hip but severe right hip and groin pain with straight leg raise. She is unable to cooperate with any neurologic examination. Results & Data Vital Signs (Past 12 Hours) Vital Signs Temp Pulse Resp BP Pulse Ox 06/23/19 22:59 36.6 C 59 L 18 146/74 H 94 PG Care Time/CCT Total # of Minutes Spent Total Time Spent with Patient: Total time spent is greater than 50% in coordination of care (as documented) at patient's floor/unit and/or counseling patient:
[2019-06-24 06:55] LABS: Creatinine Clr Calc Pharmacy 81.7 ml/min; Est GFR (African American) 110.6; Est GFR (Non-African American) 95.5
[2019-06-24] MEDS: VANCOMYCIN HCL 750 MG in SODIUM CHLORIDE 0.9% 250 ML IV SCH (07:17)
[2019-06-24] MEDS: LEVOTHYROXINE SODIUM 75 MCG TABLET PO SCH (07:18)
[2019-06-24] MEDS: MAGNESIUM OXIDE 400 MG TAB PO SCH ×2 (07:35→21:35)
[2019-06-24] MEDS: ATENOLOL 25 MG TABLET PO SCH ×2 (07:35→21:42)
[2019-06-24] MEDS: FOLIC ACID 1 MG TAB PO SCH (07:35)
[2019-06-24] MEDS: MULTIVITAMIN TAB PO SCH (07:35)
[2019-06-24] MEDS: POLYETHYLENE (MIRALAX) 17 GM PACK PO SCH (07:35)
[2019-06-24] MEDS: CHOLECALCIFEROL 1,000 UNITS TAB PO SCH (07:35)
[2019-06-24] MEDS: PANTOprazole 40 MG TAB PO SCH ×2 (07:35→21:35)
[2019-06-24] MEDS: THIAMINE HCL 200 MG in SODIUM CHLORIDE 0.9% 50 ML IV SCH (07:40)
[2019-06-24 07:57] LABS: Calcium 9.3 mg/dl (8.5-10.1); Creatinine Clr Calc Pharmacy 81.7 ml/min; Est GFR (African American) 110.6; Est GFR (Non-African American) 95.5; Potassium 3.1 mmol/L (3.5-5.1)
[2019-06-24] MEDS ORDERED: MULTIVITAMIN TAB PO SCH (09:00)
--- NOTE | 2019-06-24 09:16 | Pharmacy Report ---
Pharmacy Abx Dose Short Note - Date of Service June 24, 2019 - Assessment & Plan Laboratory Tests 06/19/19 06/20/19 06/21/19 06:26 06:50 06:10 Creatinine 0.65 0.53 L Est Cr Clr Drug Dosing 52.7 65.1 Vancomycin Trough 11.0 06/22/19 06/23/19 06/24/19 09:08 06:06 06:27 Creatinine 0.50 L 0.51 L Est Cr Clr Drug Dosing 69.1 67.4 Vancomycin Trough 13.0 06/24/19 06:28 Creatinine 0.42 L Est Cr Clr Drug Dosing 81.7 Vancomycin Trough Assessment 84 year old F receiving IV Vancomycin 750mg IV Q12H for treatment of possible septic arthritis. Pt continues to be demented and confused. Difficult to get any history and difficult to tell if her symptoms are improving. She continues to have right hip pain. She is generally not ambulatory because of the right hip. Not able to get right hip aspiration under fluoro guidance due to poor cooperation by patient. MRI hip ordered by Ortho and no evidence of OM, it does confirm the joint effusion, but cannot determine if is infectious. I&D scheduled for today with Dr Alex. Day #6 of Vancomycin. Patient also on IV Zosyn, day #8. Renal function significantly improved since start of therapy CrCl 52 --> 82ml/min Plan Vancomycin * Trough level of 13 mcg/mL is subtherapeutic for septic arthritis * Change to 1250 mg IV every 12 hours * Goal trough level for septic arthritis : 15 to 20 mcg/mL * Random level ordered for: 06/26/19 Zosyn 3.375g IV Q8H extended interval infusion for CrCl > 30ml/min Pharmacy will continue to follow and will adjust dose/frequency as necessary. Thank you.
[2019-06-24] MEDS ORDERED: PROPOFOL IV EMULSION 10 MG/ML 20 ML VIAL IV ONE (09:52)
[2019-06-24] MEDS ORDERED: ONDANSETRON INJ 2 MG/ML 2 ML VIAL ONE (09:52)
[2019-06-24] MEDS ORDERED: LIDOCAINE HCL 2% 2 ML VIAL/AMP(20MG/ML) INFIL ONE (09:52)
[2019-06-24] MEDS ORDERED: fentaNYL citrate 100 MCG/2 ML VIAL ONE (09:53)
--- NOTE | 2019-06-24 10:16 | Anesthesiology Consultation ---
Date of Service June 24, 2019 Assessment & Plan (1) Encounter for pre-operative examination: Chart Review Chart Review: Acceptable Risk for Surgery (patient is at increased risk but needs surgery) and Patient NOT seen in Pre Admission Testing Consults Requested medicine is following History Surgery Operation Date: 06/24/19 11:20 Proposed Procedures p Right Hip Incision and Drainage - Jr Alex, DO Height/Weight Height: 5 ft Weight: 57 kg Allergies Allergy/AdvReac Type Severity Reaction Status Date / Time cefdinir Allergy Unknown Verified 06/17/19 19:08 clindamycin Allergy Unknown Verified 06/17/19 19:08 hydroxychloroquine Allergy Unknown Verified 06/17/19 19:08 fluconazole AdvReac Unknown Verified 06/17/19 19:08 Medications Home Medications Medication Instructions Recorded Confirmed Last Taken acetaminophen [Tylenol] 650 mg PO Q6H PRN 06/17/19 06/17/19 Unknown aspirin [Aspir-81] 81 mg PO DAILY 06/17/19 06/17/19 06/17/19 08:00 atenolol 25 mg PO BID 06/17/19 06/17/19 06/17/19 08:00 cholecalciferol (vitamin D3) 2,000 unit PO DAILY 06/17/19 06/17/19 06/17/19 08:00 [Vitamin D3] diphenhydramine HCl 50 mg PO .Q24HRS PRN 06/17/19 06/17/19 Unknown estradiol 0 mg TOPICAL 2XWK 06/17/19 06/17/19 06/14/19 fexofenadine [Mindy Allergy] 60 mg PO DAILY 06/17/19 06/17/19 06/17/19 08:00 flaxseed oil 1,000 mg PO DAILY 06/17/19 06/17/19 06/17/19 08:00 ipratropium bromide 0 ml INHALATION QID 06/17/19 06/17/19 06/17/19 13:00 latanoprost 1 drp OPHTHALMIC (EYE) PM 06/17/19 06/17/19 06/16/19 levothyroxine 75 mcg PO DAILY 06/17/19 06/17/19 06/17/19 05:00 lorazepam 1 mg PO DAILY PRN 06/17/19 06/17/19 Unknown magnesium oxide 400 mg PO BID 06/17/19 06/17/19 06/17/19 08:00 mirabegron [Myrbetriq] 50 mg PO DAILY 06/17/19 06/17/19 06/17/19 08:00 multivitamin 1 tab PO DAILY 06/17/19 06/17/19 06/17/19 omeprazole 20 mg PO BID 06/17/19 06/17/19 06/17/19 08:00 polyethylene glycol 3350 [Miralax] 17 g PO DAILY 06/17/19 06/17/19 06/17/19 08:00 simethicone 125 mg PO Q8 PRN 06/17/19 06/17/19 Unknown Active Medications Generic Name Dose Route Start Last Admin Trade Name Freq PRN Reason Stop Dose Admin Atenolol 25 mg 06/21/19 09:05 06/24/19 07:35 Tenormin PO 07/21/19 09:04 Not Given BID NIGEL Folic Acid 1 mg 06/24/19 09:00 06/24/19 07:35 Folvite PO 07/24/19 08:59 Not Given QAM NIGEL Piperacillin Sod/Tazobactam 115 mls @ 28.75 mls/hr 06/20/19 16:00 06/24/19 10:05 Sod 3.375 gm/ Dextrose IV 06/27/19 15:59 Infused Q8H NIGEL Infusion Protocol Thiamine HCl 200 mg/ Sodium 52 mls @ 208 mls/hr 06/23/19 09:00 06/24/19 08:37 Chloride IV 07/23/19 08:59 Infused DAILY NIGEL Infusion Latanoprost 1 drops 06/21/19 21:00 06/23/19 20:45 Xalatan Oph OP 07/21/19 20:59 1 drops PM NIGEL Administration Levothyroxine Sodium 75 mcg 06/22/19 06:30 06/24/19 07:18 Synthroid PO 07/22/19 06:29 75 mcg DAILYBB NIGEL Administration Lorazepam 0.5 mg 06/23/19 17:06 06/23/19 17:35 Ativan PO 07/23/19 17:05 0.5 mg Q8 PRN Administration Anxiety Magnesium Oxide 400 mg 06/21/19 09:00 06/24/19 07:35 Mag-Ox PO 07/21/19 08:59 Not Given BID NIGEL Multivitamins 1 tab 06/21/19 09:00 06/24/19 07:35 Multivitamin Tab PO 07/21/19 08:59 Not Given DAILY NIGEL Pantoprazole Sodium 40 mg 06/21/19 09:00 06/24/19 07:35 Protonix PO 07/21/19 08:59 Not Given BID NIGEL Polyethylene Glycol 17 gm 06/21/19 09:00 06/24/19 07:35 Miralax Powder Packet PO 07/21/19 08:59 Not Given DAILY NIGEL Vitamin D 2,000 units 06/22/19 09:00 06/24/19 07:35 Vitamin D3 PO 07/22/19 08:59 Not Given DAILY NIGEL Past Medical History Medical History (Updated 06/24/19 @ 10:18 by Graeme Deal MD) Absolute glaucoma of both eyes Alcohol abuse Anxiety Dementia GERD (gastroesophageal reflux disease) Goals of care, counseling/discussion Hyperlipidemia Hypertension Hypokalemia Hypothyroid Neuromuscular dysfunction of bladder, unspecified Past Surgical History Surgical History (Updated 06/24/19 @ 10:16 by Graeme Deal MD) History of appendectomy History of tonsillectomy and adenoidectomy Social History Smoking Status: Unknown if ever smoked Physical Exam Vital Signs Last Vital Signs Temp 36.4 C L 06/24/19 07:08 Pulse 75 06/24/19 07:08 Resp 16 06/24/19 07:08 BP 129/82 06/24/19 07:08 Pulse Ox 92 06/24/19 07:08 Testing Laboratory Results 06/21/19 10:57 06/24/19 06:28 PT 11.9 Seconds (9.0-12.0) 06/19/19 16:20 INR 1.2 (0.9-1.1) H 06/19/19 16:20 APTT 28.6 Seconds (21.0-31.0) 06/19/19 16:20 Urine Color Dark Yellow 06/17/19 15:50 Urine Appearance Turbid (Clear) A 06/17/19 15:50 Urine pH 6.0 (4.5-7.5) 06/17/19 15:50 Ur Specific Bradshaw 1.026 (1.000-1.030) 06/17/19 15:50 Urine Protein 1+ (Negative) H 06/17/19 15:50 Urine Glucose (UA) Negative (Negative) 06/17/19 15:50 Urine Ketones Negative (Negative) 06/17/19 15:50 Urine Nitrite Positive (Negative) A 06/17/19 15:50 Ur Leukocyte Esterase 3+ (Negative) H 06/17/19 15:50 Urine WBC (Auto) >30 /hpf (0-5) H 06/17/19 15:50 Urine RBC (Auto) >30 /hpf (0-4) H 06/17/19 15:50 U Hyaline Cast (Auto) 5-10 /lpf (0-5) H 06/17/19 15:50 U Epithel Cells (Auto) >30 /lpf (0-5) H 06/17/19 15:50 Urine Bacteria (Auto) 4+ (Negative) H 06/17/19 15:50 06/17/19 16:28 Aerobic Blood Culture - Final Blood No growth in Aerobic bottle after 5 days. Anaerobic Blood Culture - Final No growth in Anaerobic bottle after 5 days. 06/17/19 16:16 Aerobic Blood Culture - Final Blood No growth in Aerobic bottle after 5 days. Anaerobic Blood Culture - Final No growth in Anaerobic bottle after 5 days. 06/17/19 15:50 Urine Culture - Final Urine,Clean Catch Escherichia coli Electrocardiogram Date: 06/17/19 SR with fusion complexes, rate 100 Chest X-Ray Date: 06/17/19 [place], [place] [phone] XRay Report Patient: Julissa DAVISON Date: 06/17/19 MR#: [id number]: [address] Acct ID:[id number]: NOEMY LYNNE Date: 1935City Zip: [place] [address] Age: 84Location: ED Sex: F Room/Bed: Att Phy:Diagnosis: MHE Nandini Phy: NoemyRobynervice Date: 06/17/19 Fam Phy:Interpreting Phy: Dilip Marion Admit Phy: Ordering Phy: Gume Selby M.D. cc: ~ XR chest 1V portable HISTORY: 84 years-old Female Sepsis hypoxia acute sepsis COMPARISON: None available TECHNIQUE: Portable AP view of the chest FINDINGS: Cardiac mediastinal and hilar silhouettes are within normal limits. Trace pleural effusions with mild bibasilar opacities. No pneumothorax or overt pulmonary edema. Degenerative changes of the shoulders and spine. IMPRESSION: Trace pleural effusions with bibasilar opacities suggestive of atelectasis versus pneumonitis. ACT 112: Negative or not required by law. The above report was generated using voice recognition software. It may contain grammatical, syntax or spelling errors. Electronically signed by: José Marion M.D. 06/17/2019 4:29 PM
[2019-06-24] MEDS ORDERED: MIDAZOLAM HCL 1 MG/ML 2ML VIAL ONE (10:39)
[2019-06-24] MEDS ORDERED: POTASSIUM CHLORIDE / WTR 10 MEQ/100 ML PLCT IV SCH ×2 (10:45→16:00)
--- NOTE | 2019-06-24 10:49 | Orthopedic Progress Note ---
Date of Service June 24, 2019 Assessment & Plan (1) Right hip joint effusion: Agree with Dr. Alex's assessment today. I think washing out the hip is the most conservative maneuver given unreliable history, persistent hip irritability though unreliable exam, elevated inflammatory markers, and degradation of her baseline mental function. Informed consent is obtained to the office of aging and left on the chart. She is on-call to the OR and Dr. Alex can fit her in today. We will continue to follow. Subjective Patient seen and examined this morning in addition to Dr. Alex. She had no complaints but was generally not cooperative with the history and exam. Physical Exam Physical Exam: Josette was somnolent this morning but arousable. He seemed disinterested in my presence in the exam. Right lower extremity: I was able to logroll the right lower extremity without significant indication of pain however she did not like attempted straight leg raise or hip flexion. Results & Data Vital Signs (Past 12 Hours) Vital Signs Temp Pulse Resp BP BP Pulse Ox 06/24/19 10:05 36.7 C 93 H 20 146/72 H 96 06/24/19 07:08 36.4 C L 75 16 129/82 92 06/23/19 22:59 36.6 C 59 L 18 146/74 H 94 PG Care Time/CCT Total # of Minutes Spent Total Time Spent with Patient: Total time spent is greater than 50% in coordination of care (as documented) at patient's floor/unit and/or counseling patient:
[2019-06-24] MEDS ORDERED: PHENYLEPHRINE 100MCG/ML 5ML SYR IV PRN (11:59)
[2019-06-24] MEDS ORDERED: ONDANSETRON INJ 2 MG/ML 2 ML VIAL IV PRN (11:59)
[2019-06-24] MEDS ORDERED: ATROPINE SULFATE 0.1 MG/ML 10ML SYR IV PRN (11:59)
[2019-06-24] MEDS ORDERED: HYDROmorphone INJ 1 MG/ML SYRINGE IV PRN (11:59)
[2019-06-24] MEDS ORDERED: fentaNYL citrate 100 MCG/2 ML VIAL IV PRN (11:59)
[2019-06-24] MEDS ORDERED: ePHEDrine sulfate 50 MG/ML AMP IV PRN (11:59)
[2019-06-24] MEDS ORDERED: LABETALOL HCL IV 5 MG/ML 20ML IV PRN (11:59)
--- NOTE | 2019-06-24 12:23 | Operative Report ---
PG Post Operative Report Pre & Post Diagnosis Operation Date: 06/24/19 11:20 Pre-Op Diagnosis: Right hip joint effusion Post-Op Diagnosis: Right hip joint effusion I identified the patient and participated in the time-out.: Yes Procedure Operation Date: 06/24/19 11:20 Actual Procedures p Right Hip Incision and Drainage(Right) - Jr Alex DO Surgeon Jr Alex, Marine Geologist Jr Cruz PAC Estimated Blood Loss 20 Findings Consistent with Post-Op Diagnosis Specimens 1 swab culture and 4 tissue cultures Complications none Disposition Disposition: Recovery Room Indications Josette is a 84-year-old female who is been having a 4 to 6-week history of increasing right hip and groin pain. Lab values and imaging studies were suggestive of a right hip infection. We have been treating conservatively however she continues to have a lot of right hip pain. After consent had been obtained, we had elected to proceed with an irrigation and debridement of the right hip. Description of Procedure On June 24, 2019 she was brought down from the hospital room to the preoperative holding area. The operative extremity was identified and signed. She was taken back to the operating room and laid on the table in the supine position. She was put under general anesthesia. The right leg was brought up to a purist leg positioner. The right hip was prepped and draped in sterile fashion. A timeout was done. The patient and the operative extremity was properly identified. An anterior approach was used. Dissection was taken down through the fascia and the tensor muscle belly was retracted laterally and the rectus was retracted medially. The circumflex vessels were ligated. The capsule was then incised and opened. There was a significant effusion. There were some small white clumps that came out as well. It was difficult to tell if this was definitively an infection or not. A swab culture was obtained. 4 tissue cultures were then obtained from around the synovial lining of the joint. The joint was then irrigated with 6 L of normal saline solution. The hip was internally and externally rotated. There was no evidence of arthritis. The capsule was then closed with #1 Vicryl suture. Fascia was closed with #1 PDS suture. Skin was closed with 2-0 Vicryl and leonardo. A Jeanette VAC dressing was then applied. She was then extubated and transferred to a [facility]. She was taken to the postanesthesia care unit in stable condition. She tolerated the procedure well. I attest to the content of the Intraoperative Record and any orders documented therein. Any exceptions are noted below.
--- NOTE | 2019-06-24 13:23 | Anesthesiology Progress Note ---
Date of Service June 24, 2019 Anesthesia Post Procedure Vital Signs Vital Signs: Temp Pulse Pulse Resp BP BP Pulse Ox 06/24/19 13:15 84 16 124/85 100 06/24/19 13:05 82 22 140/63 100 06/24/19 12:55 75 20 130/62 100 06/24/19 12:48 36.5 C 76 16 130/66 100 06/24/19 10:05 36.7 C 93 H 20 146/72 H 96 06/24/19 07:08 36.4 C L 75 16 129/82 92 06/23/19 22:59 36.6 C 59 L 18 146/74 H 94 06/23/19 16:00 86 06/23/19 15:23 36.6 C 84 20 163/96 H 94 Transfer of Care Handoff Completed per policy Notes Mental Status: alert / awake / arousable Patient Amnestic to Procedure: Yes Nausea / Vomiting: adequately controlled Pain: adequately controlled Airway Patency, RR, SpO2: stable & adequate BP & HR: stable & adequate Hydration State: stable & adequate Anesthetic Complications: no major complications apparent and Pt Satisfied with anesthetic care Notes: The patient is awake and stable at her baseline.
[2019-06-24] MEDS ORDERED: NALOXONE HCL 0.4 MG/1 ML VIAL/CARP IV PRN (14:00)
[2019-06-24] MEDS: SODIUM CHLORIDE 0.9% 1000ML 1,000 ML IV SCH ×2 (14:11→23:36)
[2019-06-24] MEDS: VANCOMYCIN HCL 1,250 MG in SODIUM CHLORIDE 0.9% 250 ML IV SCH (15:52)
[2019-06-24] MEDS ORDERED: POTASSIUM CHLORIDE 20 MEQ TABCR PO STA (17:46)
--- NOTE | 2019-06-24 18:09 | Hospitalist Progress Note ---
Date of Service June 24, 2019 Assessment & Plan (1) Right hip joint effusion: Concern for septic joint given fever, WBC and CT imaging showing complex fluid collection. -not able to get right hip aspiration under fluoro guidance due to poor cooperation by patient MRI hip ordered by Ortho and no evidence of OM, but it does confirm the joint effusion- but cannot determine if is infectious. ESR quite elevated persistently greater than 90 despite starting prednisone, CRP also elevated, no leukocytosis, remains afebrile Remained with significant pain on examination Now s/p washout of hip with removal of large amount of joint fluid with white clumps noted on 06/24/18 by Ortho -Continue broad-spectrum antibiotics -follow intraoperative cultures -Continue to follow ESR, CRP, CBC, and blood cultures -Continue Tylenol as needed for pain -have since discontinued prednisone after 2-3 doses (empiric treatment for crytallopathy) -PT/OT (2) Wernicke encephalopathy: Concern for Wernicke's/Korsakoff given history of recurrent falls leading to memory impairment, delirium and eventual apathy. Ongoing confusion and disinhibition of speech and thought process -Continue empiric high-dose thiamine supplementation underwaydecreased now to 200 mg daily. -Serial exams, supportive care -Added on low-dose of lorazepam as needed for anxiety and restlessness (3) Toxic encephalopathy: Baseline reported prior to [facility] admission on 05 June: Able to have full conversations. Possible undiagnosed dementia but appeared to be much worse during admission to [facility]. Recurrent falls prior to admission but started being completely immobile during that admission. She apparently was walking (with assistance) at [facility] but become more generalized fatigue, suspected due to Librium use which was discontinued on 11 June. [facility] notes suggest bed bound status, sleeping most of the day, not taking medication or much/any oral intake in general. -she did have one fever at [facility] on 11 June but blood cultures where negative and UA was apparently "clean for infection". She was deemed incompetent to make medical decisions at [facility] (although psychiatry assessment suggest a significant decline from to 10 June assessment. She now has a guardian in place from office of aging. Cannot be discharged without first discussing with guardian. CT head unremarkable CT A/P performed to assess for ascites and there is none However findings concerning for septic arthritis as above Does not entirely examine consistent with a simple delirium/metabolic encephalopathy, but hopefully this could be the case. Continue serial exams and supportive care. (4) Hypernatremia: Resolvedcontinue to follow, follow oral intake and follow-up basic metabolic panel (5) UTI (urinary tract infection): Continue Zosyn as above for hip Ur cx E. coli pansensitive-she is already received enough days of treatment of antibiotics for UTI but continues on them for hip as above In hindsight, this was not likely contributing towards her encephalopathy as it should be cleared and she continues to be confused, see above otherwise (6) Alcoholism: No alcohol withdrawal as last alcohol drink suspected to be around 04 June. She had a positive ethanol level on admission to [facility] on and was treated with Librium there for suspected alcohol withdrawal. Thiamine supplementation as above -Started folic acid and multivitamin as well (7) Sinus tachycardia: Likely was secondary to dehydration vs. reflex from atenolol discontinuation vs. appropriate in setting of infection. One episode of SVT on 06/18 which spontaneously resolved. -restarted atenolol, appears to be doing well in this regard now With normal sinus rhythm and normal rates on the monitor -No further telemetry monitoring needed (8) Hypokalemia: Potassium down to 3.1 likely secondary to poor p.o. intake -Replace with potassium chloride po and IV today -Follow BMP and Magnesium in the morning (9) DVT prophylaxis: lovenox 40mg sq daily-restarted after surgery (10) Discharge planning issues: Family do not wish her to go back to [facility] (although actual decision down to office of aging). PT/OT ongoing eval and treat Oral intake appears to be quite suspect and this could be an issue outside of the hospital setting Continued stay for IV abx Discussed her care with her son at the bedside Subjective Pt had right hip washout today and had a large amount of fluid removed with white clumps noted. SHe denies pain, remains confused. Her son is now at the bedside and reports he was able to convince her to drink a can of Boost but otherwise not eating. She denies CP or SOB, no abd pain. Review of Systems Review of Systems: All systems reviewed & are unremarkable except as noted in HPI & below Physical Exam Constitutional: average body habitus; no acute distress Eyes: + anicteric sclerae Neck: trachea midline, no thyromegaly Respiratory: normal respiratory effort, lungs clear to auscultation Cardiovascular: RRR, no murmur, no edema Chest (Breasts): Chest: normal inspection of chest Gastrointestinal (Abdomen): normal bowel sounds, soft, nontender, no hepatosplenomegaly Musculoskeletal: Extremities: + extremities abnormal to inspection (rt hip with dressing in place), no cyanosis and no clubbing Hip: + limited ROM of hip (Significant pain with straight leg raise on the right); hip normal to inspection, no deformity, no skin erythema and no ecchymosis Skin: no rashes, warm and dry Neurologic: moves all extremities and awake; no focal motor deficits Psychiatric: Orientation: alert; + not oriented to place ("[facility]") Insight: + poor insight Judgement: + poor judgement Lymphatic: no lymphedema Results & Data Vital Signs (Past 12 Hours) Vital Signs Temp Pulse Resp BP Pulse Ox 06/24/19 15:37 36.5 C 85 16 133/76 95 06/24/19 14:10 36.3 C L 90 16 136/78 93 06/24/19 13:57 36.3 C L 88 118/64 06/24/19 13:35 36.2 C L 84 14 145/84 H 100 06/24/19 13:25 85 18 130/78 100 06/24/19 13:15 84 16 124/85 100 06/24/19 13:05 82 22 140/63 100 06/24/19 12:55 75 20 130/62 100 06/24/19 12:48 36.5 C 76 16 130/66 100 06/24/19 10:05 36.7 C 93 H 20 146/72 H 96 06/24/19 07:08 36.4 C L 75 16 129/82 92 Laboratory Results 06/24/19 06/24/19 06/24/19 Range/Units 06:28 06:27 06:27 Sodium 141 (136-145) mmol/L Potassium 3.1 L (3.5-5.1) mmol/L Chloride 110 H (98-107) mmol/L Carbon Dioxide 23 (21-32) mmol/L Anion Gap 8.0 (3-11) BUN 7 (7-18) mg/dl Creatinine 0.42 L 0.42 L (0.6-1.2) mg/dl Est Cr Clr Drug Dosing 81.7 81.7 ml/min Est GFR ( Amer) 110.6 110.6 Est GFR (Non-Af Amer) 95.5 95.5 BUN/Creatinine Ratio 17.0 (10-20) Glucose 91 (70-99) mg/dl Calcium 9.3 (8.5-10.1) mg/dl Vancomycin Trough 13.0 06/23/19 Range/Units 17:48 Sodium (136-145) mmol/L Potassium (3.5-5.1) mmol/L Chloride (98-107) mmol/L Carbon Dioxide (21-32) mmol/L Anion Gap (3-11) BUN (7-18) mg/dl Creatinine (0.6-1.2) mg/dl Est Cr Clr Drug Dosing ml/min Est GFR ( Amer) Est GFR (Non-Af Amer) BUN/Creatinine Ratio (10-20) Glucose (70-99) mg/dl Calcium (8.5-10.1) mg/dl Vancomycin Trough Cancelled PG Care Time/CCT Total # of Minutes Spent Total Time Spent with Patient: Total time spent is greater than 50% in coordination of care (as documented) at patient's floor/unit and/or counseling patient: (1) UTI (urinary tract infection) Urinary tract infection type: acute cystitis Hematuria presence: with hematuria Qualified Code(s): N30.01 - Acute cystitis with hematuria
[2019-06-24] MEDS: ACETAMINOPHEN 325 MG TAB PO PRN (18:11)
[2019-06-24] MEDS: ENOXAPARIN INJ 40 MG/0.4 ML SYR SQ SCH (21:34)
[2019-06-24] MEDS: LATANOPROST 0.005% OP SOLN 2.5 ML BTL OP SCH (21:39)
[2019-06-24] MEDS: LORazepam 0.5 MG TAB PO PRN (21:44)
[2019-06-25] MEDS: ACETAMINOPHEN 1,000 MG/100 ML VIAL IV PRN ×2 (01:22→12:05)
[2019-06-25] MEDS: VANCOMYCIN HCL 1,250 MG in SODIUM CHLORIDE 0.9% 250 ML IV SCH ×2 (04:14→16:37)
[2019-06-25] MEDS: LEVOTHYROXINE SODIUM 75 MCG TABLET PO SCH (06:04)
[2019-06-25 06:24] LABS: Hematocrit (blood only) 38.4 % (37-47); Hemoglobin 12.2 g/dL (12.0-16.0); Mean Corpuscular Hemoglobin 33.8 pg (25-34); Mean Corpuscular Volume 106.4 fL (80-100); Red Blood Count 3.61 M/uL (4.2-5.4); White Blood Count 11.13 K/uL (4.8-10.8)
[2019-06-25 06:25] LABS: Basophils # (auto) 0.06 K/uL (0-0.2); Basophils % (auto) 0.5 %; Eosinophils # (auto) 0.54 K/uL (0-0.5); Eosinophils % (auto) 4.9 %; Immature Granulocytes # (auto) 0.04 K/uL (0.00-0.02); Immature Granulocytes % (auto) 0.4 %; Lymphocytes # (auto) 1.23 K/uL (1.2-3.4); Lymphocytes % (auto) 11.1 %; Mean Corpuscular Hgb Conc 31.8 g/dL (32-36); Mean Platelet Volume 12.1 fL (7.4-10.4); Monocytes # (auto) 1.22 K/uL (0.11-0.59); Neutrophils # (auto) 8.04 K/uL (1.4-6.5); Neutrophils % (auto) 72.1 %; Platelet Count 418 K/uL (130-400); RDW Coefficient of Variation 13.2 % (11.5-14.5); RDW Standard Deviation 51.8 fL (36.4-46.3)
[2019-06-25 07:52] LABS: BUN Creatinine Ratio 16.2 (10-20); C Reactive Protein 2.7 mg/dl (0-0.29); Calcium 8.7 mg/dl (8.5-10.1); Est GFR (African American) 103.1; Magnesium 1.6 mg/dl (1.8-2.4); Potassium 3.9 mmol/L (3.5-5.1)
[2019-06-25] MEDS: THIAMINE HCL 200 MG in SODIUM CHLORIDE 0.9% 50 ML IV SCH (08:01)
--- NOTE | 2019-06-25 08:25 | Orthopedic Progress Note ---
Date of Service June 25, 2019 Assessment & Plan (1) Right hip joint effusion: Right now she seems to be doing okay with the right hip. She can be up and ambulating today with physical therapy. She does not seem to be having too much pain. We are still awaiting final swab and tissue cultures. During the surgery, the tissue was very thickened and inflamed. The capsule was very thickened and inflamed. There was a hip effusion. The fluid was a darker brown color with some white clumps within it. These white clumps were sent to lab his tissue cultures. The cartilage of the hip joint appeared to be okay. I am still a little unclear if this is an infection. There was not a large amount of gross pus, however it was certainly not normal synovial fluid. We will see what the cultures grow. Right now it is best to continue the antibiotics. She can be weightbearing as tolerated. We will continue to follow. The Jeanette VAC dressing will be on for 7 days. She can shower while the dressing is intact. Present on Admission?: Yes Jacek Finch was seen and examined at bedside this morning. She was awake and alert but she seemed irritated to be talking to me. She just gave me a couple of short one-word responses. She says that her hip is feeling fine. She has not been up and ambulating yet. She apparently has no complaints. Physical Exam Musculoskeletal: On physical examination of the right hip, the Jeanette VAC dressing is to suction. The leg lengths are equal. She will not cooperate with a neurologic examination. Results & Data Vital Signs (Past 12 Hours) Vital Signs Temp Pulse Pulse Resp BP Pulse Ox 06/25/19 07:24 37.2 C 91 H 16 119/62 93 06/24/19 23:45 78 18 94 06/24/19 21:49 56 L 128/54 L 100 PG Care Time/CCT Total # of Minutes Spent Total Time Spent with Patient: Total time spent is greater than 50% in coordination of care (as documented) at patient's floor/unit and/or counseling patient:
[2019-06-25] MEDS: PIPERACILLIN/TAZOBACTAM 3.375 GM in DEXTROSE 5% 100 ML IV SCH ×2 (08:50→16:37)
[2019-06-25] MEDS: ATENOLOL 25 MG TABLET PO SCH ×2 (08:51→21:18)
[2019-06-25] MEDS: MULTIVITAMIN TAB PO SCH (08:51)
[2019-06-25] MEDS: CHOLECALCIFEROL 1,000 UNITS TAB PO SCH (08:51)
[2019-06-25] MEDS: FOLIC ACID 1 MG TAB PO SCH (08:52)
[2019-06-25] MEDS: MAGNESIUM OXIDE 400 MG TAB PO SCH ×2 (08:52→21:18)
[2019-06-25] MEDS: POLYETHYLENE (MIRALAX) 17 GM PACK PO SCH (08:52)
[2019-06-25] MEDS: PANTOprazole 40 MG TAB PO SCH ×2 (08:53→21:18)
[2019-06-25] MEDS: MAGNESIUM SULFATE / D5W 1 GM/100 ML BAG IV SCH ×2 (11:23→12:43)
--- NOTE | 2019-06-25 18:36 | Hospitalist Progress Note ---
Date of Service June 25, 2019 Assessment & Plan (1) Right hip joint effusion: Concern for septic joint given fever, WBC and CT imaging showing complex fluid collection. -not able to get right hip aspiration under fluoro guidance due to poor cooperation by patient MRI hip ordered by Ortho and no evidence of OM, but it does confirm the joint effusion- but cannot determine if is infectious. ESR quite elevated persistently greater than 90 despite starting prednisone, CRP also elevated, no leukocytosis, remains afebrile Remained with significant pain on examination Now s/p washout of hip with removal of large amount of brown-colored joint fluid with white clumps noted on 06/24/18 by Ortho Markers of inflammation are now significantly decreased since surgery -Continue broad-spectrum antibiotics -follow intraoperative cultures-no growth to date -Continue to follow ESR, CRP, CBC, and blood cultures -Continue Tylenol as needed for pain -have since discontinued prednisone after 2-3 doses (empiric treatment for crytallopathy) -PT/OT (2) Wernicke encephalopathy: Concern for Wernicke's/Korsakoff given history of recurrent falls leading to memory impairment, delirium and eventual apathy. Ongoing confusion and disinhibition of speech and thought process -Continue empiric high-dose thiamine supplementation underwaydecreased now to 200 mg daily. -Serial exams, supportive care -Added on low-dose of lorazepam as needed for anxiety and restlessness (3) Toxic encephalopathy: Baseline reported prior to [facility] admission on 05 June: Able to have full conversations. Possible undiagnosed dementia but appeared to be much worse during admission to [facility]. Recurrent falls prior to admission but started being completely immobile during that admission. She apparently was walking (with assistance) at [facility] but become more generalized fatigue, suspected due to Librium use which was discontinued on 11 June. [facility] notes suggest bed bound status, sleeping most of the day, not taking medication or much/any oral intake in general. -she did have one fever at [facility] on 11 June but blood cultures where negative and UA was apparently "clean for infection". She was deemed incompetent to make medical decisions at [facility] (although psychiatry assessment suggest a significant decline from to 10 June assessment. She now has a guardian in place from office of aging. Cannot be discharged without first discussing with guardian. CT head unremarkable CT A/P performed to assess for ascites and there is none However findings concerning for septic arthritis as above Does not entirely examine consistent with a simple delirium/metabolic encephalopathy, but hopefully this could be the case. Continue serial exams and supportive care. (4) Hypernatremia: Resolvedcontinue to follow, follow oral intake and follow-up basic metabolic panel (5) UTI (urinary tract infection): Continue Zosyn as above for hip Ur cx E. coli pansensitive-she is already received enough days of treatment of antibiotics for UTI but continues on them for hip as above In hindsight, this was not likely contributing towards her encephalopathy as it should be cleared and she continues to be confused, see above otherwise (6) Alcoholism: No alcohol withdrawal as last alcohol drink suspected to be around 04 June. She had a positive ethanol level on admission to [facility] on and was treated with Librium there for suspected alcohol withdrawal. Thiamine supplementation as above -Started folic acid and multivitamin as well (7) Sinus tachycardia: Likely was secondary to dehydration vs. reflex from atenolol discontinuation vs. appropriate in setting of infection. One episode of SVT on 06/18 which spontaneously resolved. -restarted atenolol, appears to be doing well in this regard now With normal sinus rhythm and normal rates on the monitor -No further telemetry monitoring needed (8) Hypokalemia: Resolved after replacement -Encourage p.o. intake -Follow BMP (9) Hypomagnesemia: Replace with IV magnesium -Follow occasionally (10) Lower back pain: Likely musculoskeletal from being in the bed for quite some time PT/OT consults placed Heating pad and ordered tramadol as needed for pain (11) DVT prophylaxis: lovenox 40mg sq daily (12) Discharge planning issues: Family do not wish her to go back to [facility] (although actual decision down to office of aging). PT/OT ongoing eval and treat Continued stay for IV abx -Remain hospitalized, plan for hopeful rehab placement at [facility] Subjective Patient having a lot of lower back pain, reports her hip pain is improved. Denies chest pain or shortness of breath. Not eating much. Still remains confused. Not agitated Review of Systems Review of Systems: All systems reviewed & are unremarkable except as noted in HPI & below Physical Exam Constitutional: average body habitus; no acute distress Eyes: + anicteric sclerae Neck: trachea midline, no thyromegaly Respiratory: normal respiratory effort, lungs clear to auscultation Cardiovascular: RRR, no murmur, no edema Chest (Breasts): Chest: normal inspection of chest Gastrointestinal (Abdomen): normal bowel sounds, soft, nontender, no hepatosplenomegaly Musculoskeletal: Extremities: + extremities abnormal to inspection (rt hip with dressing in place), no cyanosis and no clubbing Hip: hip normal to inspection Skin: no rashes, warm and dry Neurologic: moves all extremities and awake; no focal motor deficits Psychiatric: Orientation: alert Insight: + poor insight Judgement: + poor judgement Lymphatic: no lymphedema Results & Data Vital Signs (Past 12 Hours) Vital Signs Temp Pulse Resp BP Pulse Ox 06/25/19 15:38 36.3 C L 61 17 120/77 94 06/25/19 07:24 37.2 C 91 H 16 119/62 93 Laboratory Results 06/25/19 06/25/19 06/25/19 Range/Units 06:57 06:57 05:57 WBC 11.13 H (4.8-10.8) K/uL RBC 3.61 L (4.2-5.4) M/uL Hgb 12.2 (12.0-16.0) g/dL Hct 38.4 (37-47) % MCV 106.4 H (80-100) fL MCH 33.8 (25-34) pg MCHC 31.8 L (32-36) g/dL RDW Std Deviation 51.8 H (36.4-46.3) fL RDW Coeff of Ruthie 13.2 (11.5-14.5) % Plt Count 418 H (130-400) K/uL MPV 12.1 H (7.4-10.4) fL Immature Gran % (Auto) 0.4 % Neut % (Auto) 72.1 % Lymph % (Auto) 11.1 % Kingman % (Auto) 11.0 % Eos % (Auto) 4.9 % Baso % (Auto) 0.5 % Immature Gran # (Auto) 0.04 H (0.00-0.02) K/uL Neut # (Auto) 8.04 H (1.4-6.5) K/uL Lymph # (Auto) 1.23 (1.2-3.4) K/uL Kingman # (Auto) 1.22 H (0.11-0.59) K/uL Eos # (Auto) 0.54 H (0-0.5) K/uL Baso # (Auto) 0.06 (0-0.2) K/uL ESR 49 H (0-21) mm/hr Sodium 143 (136-145) mmol/L Potassium 3.9 D (3.5-5.1) mmol/L Chloride 113 H (98-107) mmol/L Carbon Dioxide 24 (21-32) mmol/L Anion Gap 6.0 (3-11) BUN 8 (7-18) mg/dl Creatinine 0.52 L (0.6-1.2) mg/dl Est Cr Clr Drug Dosing 66.0 ml/min Est GFR ( Amer) 103.1 Est GFR (Non-Af Amer) 89.0 BUN/Creatinine Ratio 16.2 (10-20) Glucose 84 (70-99) mg/dl Calcium 8.7 (8.5-10.1) mg/dl Magnesium 1.6 L (1.8-2.4) mg/dl C-Reactive Protein 2.70 H (0-0.29) mg/dl Whole Bld Vitamin B1 (78-185) nmol/L Specimen Hemolysis 06/18/19 Range/Units 11:13 WBC (4.8-10.8) K/uL RBC (4.2-5.4) M/uL Hgb (12.0-16.0) g/dL Hct (37-47) % MCV (80-100) fL MCH (25-34) pg MCHC (32-36) g/dL RDW Std Deviation (36.4-46.3) fL RDW Coeff of Ruthie (11.5-14.5) % Plt Count (130-400) K/uL MPV (7.4-10.4) fL Immature Gran % (Auto) % Neut % (Auto) % Lymph % (Auto) % King[place] % (Auto) % Eos % (Auto) % Baso % (Auto) % Immature Gran # (Auto) (0.00-0.02) K/uL Neut # (Auto) (1.4-6.5) K/uL Lymph # (Auto) (1.2-3.4) K/uL Kingman # (Auto) (0.11-0.59) K/uL Eos # (Auto) (0-0.5) K/uL Baso # (Auto) (0-0.2) K/uL ESR (0-21) mm/hr Sodium (136-145) mmol/L Potassium (3.5-5.1) mmol/L Chloride (98-107) mmol/L Carbon Dioxide (21-32) mmol/L Anion Gap (3-11) BUN (7-18) mg/dl Creatinine (0.6-1.2) mg/dl Est Cr Clr Drug Dosing ml/min Est GFR ( Amer) Est GFR (Non-Af Amer) BUN/Creatinine Ratio (10-20) Glucose (70-99) mg/dl Calcium (8.5-10.1) mg/dl Magnesium (1.8-2.4) mg/dl C-Reactive Protein (0-0.29) mg/dl Whole Bld Vitamin B1 452 H (78-185) nmol/L Specimen Hemolysis PG Care Time/CCT Total # of Minutes Spent Total Time Spent with Patient: Total time spent is greater than 50% in hardware installation coordinator rdination of care (as documented) at patient's floor/unit and/or counseling patient: (1) UTI (urinary tract infection) Hematuria presence: with hematuria Urinary tract infection type: acute cystitis Qualified Code(s): N30.01 - Acute cystitis with hematuria
[2019-06-25] MEDS: TRAMADOL HCL 50 MG TABLET PO PRN (18:55)
[2019-06-25] MEDS: LATANOPROST 0.005% OP SOLN 2.5 ML BTL OP SCH (21:18)
[2019-06-25] MEDS: ENOXAPARIN INJ 40 MG/0.4 ML SYR SQ SCH (21:19)
[2019-06-26] MEDS ORDERED: VANCOMYCIN TROUGH ONE (03:30)
[2019-06-26] MEDS: VANCOMYCIN HCL 1,250 MG in SODIUM CHLORIDE 0.9% 250 ML IV SCH (03:38)
[2019-06-26] MEDS: PIPERACILLIN/TAZOBACTAM 3.375 GM in DEXTROSE 5% 100 ML IV SCH ×3 (03:39→20:21)
[2019-06-26 03:43] LABS: Creatinine Clr Calc Pharmacy 74.6 ml/min; Est GFR (African American) 107.4; Est GFR (Non-African American) 92.6
[2019-06-26] MEDS: LEVOTHYROXINE SODIUM 75 MCG TABLET PO SCH (06:08)
--- NOTE | 2019-06-26 08:00 | Orthopedic Progress Note ---
Date of Service June 26, 2019 Assessment & Plan (1) Right hip joint effusion: We will continue the IV antibiotics. She can be up and weightbearing as tolerated on the right hip. We will see what the cultures grow. So far, she has not been participating well with physical therapy. She is still very confused. The Jeanette VAC dressing will be on for 7 days. She has no restrictions with her hip from an orthopedic standpoint. Present on Admission?: Yes Jacek Finch was seen and examined at bedside this morning. She was rather sedated. She said she was not having too much pain in her right hip, however, that the only question that she would answer. It was difficult to keep her awake. She did not participate well with physical therapy yesterday. Physical Exam Musculoskeletal: Physical examination of the right hip, the Jeanette VAC dressing is to suction. Her leg lengths are equal. She is unable to cooperate with any sort of neuro muscular examination. Results & Data Vital Signs (Past 12 Hours) Vital Signs Temp Pulse Resp BP Pulse Ox 06/26/19 07:25 36.4 C L 82 16 110/69 93 06/25/19 23:10 36.7 C 94 H 16 133/82 92 PG Care Time/CCT Total # of Minutes Spent Total Time Spent with Patient: Total time spent is greater than 50% in coordination of care (as documented) at patient's floor/unit and/or counseling patient:
--- NOTE | 2019-06-26 09:14 | Pharmacy Report ---
Pharmacy Abx Dose Short Note - Date of Service June 26, 2019 - Assessment & Plan Assessment 84 year old F receiving IV Vancomycin and Zosyn for treatment of possible septic arthritis Patient continues to be confused throughout the day. Hip pain is being controlled with Tylenol. Not participating in PT/OT I&D done 06/24: Large effusion with dark brown liquid and some white clumps drained, unclear if infectious, definitely not normal synovial fluid Patient remains afebrile and without leukocytosis; inflammatory markers are decreasing Plan is to continue broad spectrum antibiotics until R hip cx finalized from I&D Day # 8 of Vancomycin therapy Day # 10 of Zosyn therapy Plan Vancomycin * Trough level of 19.9 mcg/mL is therapeutic; however given significant increase in trough level will decrease dose * Change to 1000 mg IV every 12 hours to prevent trough levels > 20 mcg/mL; this change was based on patient specific pharmacokinetics * Goal trough level for septic arthritis: 15 to 20 mcg/mL * Trough level ordered for: 06/28/2019 Zosyn * 3.375 g IV every 8 hours extended interval infusion for eCrCl > 30 mL/min Pharmacy will continue to follow and will adjust dose/frequency as necessary. Thank you.
[2019-06-26] MEDS: MAGNESIUM OXIDE 400 MG TAB PO SCH ×2 (09:24→20:17)
[2019-06-26] MEDS: ATENOLOL 25 MG TABLET PO SCH ×2 (09:24→20:17)
[2019-06-26] MEDS: MULTIVITAMIN TAB PO SCH (09:24)
[2019-06-26] MEDS: CHOLECALCIFEROL 1,000 UNITS TAB PO SCH (09:24)
[2019-06-26] MEDS: FOLIC ACID 1 MG TAB PO SCH (09:24)
[2019-06-26] MEDS: POLYETHYLENE (MIRALAX) 17 GM PACK PO SCH (09:25)
[2019-06-26] MEDS: PANTOprazole 40 MG TAB PO SCH ×2 (09:25→20:57)
[2019-06-26] MEDS: THIAMINE HCL 200 MG in SODIUM CHLORIDE 0.9% 50 ML IV SCH (09:33)
[2019-06-26] MEDS: TRAMADOL HCL 50 MG TABLET PO PRN (10:01)
--- NOTE | 2019-06-26 13:02 | Hospitalist Progress Note ---
Date of Service June 26, 2019 Assessment & Plan (1) Right hip joint effusion: Concern for septic joint given fever, WBC and CT imaging showing complex fluid collection. -not able to get right hip aspiration under fluoro guidance due to poor cooperation by patient MRI hip ordered by Ortho and no evidence of OM, but it does confirm the joint effusion- but could not determine if was infectious based on imaging alone ESR quite elevated persistently greater than 90 despite starting prednisone for 2 to 3 days to treat empirically for possible crystallopathy; CRP also elevated, no leukocytosis, remains afebrile Remained with significant pain on examination Now s/p washout of hip with removal of large amount of brown-colored joint fluid with white clumps noted on 06/24/18 by Ortho Markers of inflammation are now significantly decreased since surgery Joint fluid cultures with no growth to date Blood cultures no growth-final -Continue broad-spectrum antibiotics with Zosyn and vancomycin for now -Continue to follow intraoperative cultures -Consult infectious disease on Thursday-appreciate opinion on if should continue with IV antibiotics versus p.o. antibiotics versus no antibiotics moving forward and length of treatment -Ultrasound guided peripheral IV was placed on 06/23 and can remain in place for 4 weeks -Continue to follow ESR, CRP, CBC -Continue Tylenol as needed for pain, reduce tramadol dose to 25 mg as 50 mg was too sedating -PT/OT evaluations performed and she is quite resistant to participating but was able to sit on the side of the bed and transition to a bedside commode with a lot of assistance (2) Wernicke encephalopathy: Concern for Wernicke's/Korsakoff given history of recurrent falls leading to memory impairment, delirium and eventual apathy. Ongoing confusion and disinhibition of speech and thought process Not much improvement since admission -Continue empiric high-dose thiamine supplementation initially with IV thiaminedecreased now to 100 mg p.o. daily. -Serial exams, supportive care -DC PRN Ativan (3) Toxic encephalopathy: Baseline reported prior to [facility] admission on 05 June: Able to have full conversations. Possible undiagnosed dementia but appeared to be much worse during admission to [facility]. Recurrent falls prior to admission but started being completely immobile during that admission. She apparently was walking (with assistance) at [facility] but become more generalized fatigue, suspected due to Librium use which was discontinued on 11 June. [facility] notes suggest bed bound status, sleeping most of the day, not taking medication or much/any oral intake in general. This is very similar to how she is now -she did have one fever at [facility] on 11 June but blood cultures where negative and UA was apparently "clean for infection". She was deemed incompetent to make medical decisions at [facility] (although psychiatry assessment suggest a significant decline from to 10 June assessment. She now has a guardian in place from office of aging. Cannot be discharged without first discussing with guardian. I believe the temporary guardianship agreement expires sometime this week-Case management is involved CT head unremarkable CT A/P performed to assess for ascites and there is none However findings concerning for septic arthritis as above Does not entirely examine consistent with a simple delirium/metabolic encephalopathy, but hopefully this could be the case. Continue serial exams and supportive care. (4) Hypernatremia: Resolvedcontinue to follow, follow oral intake and follow-up basic metabolic panel (5) UTI (urinary tract infection): Ur cx E. coli pansensitive-she is already received enough days of treatment of antibiotics for UTI but continues on them for hip as above In hindsight, this was not likely contributing towards her encephalopathy as it should be cleared and she continues to be confused, see above otherwise (6) Alcoholism: No alcohol withdrawal as last alcohol drink suspected to be around 04 June. She had a positive ethanol level on admission to [facility] on and was treated with Librium there for suspected alcohol withdrawal. Thiamine supplementation as above -Also started folic acid and multivitamin daily (7) Sinus tachycardia: Likely was secondary to dehydration vs. reflex from atenolol discontinuation vs. appropriate in setting of infection. One episode of SVT on 06/18 which spontaneously resolved. -restarted atenolol, appears to be doing well in this regard now With normal sinus rhythm and normal rates (8) Hypokalemia: Resolved after replacement -Encourage p.o. intake -Follow BMP (9) Hypomagnesemia: Replaced with IV magnesium and p.o. 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 twice daily -Now that she is no longer drinking alcohol, we could likely reduce this dose to once daily upon discharge (14) DVT prophylaxis: lovenox 40mg sq daily (15) Discharge planning issues: Family do not wish her to go back to [facility] (although actual decision down to office of aging). PT/OT ongoing eval and treat Disposition-awaiting rehab placement at [facility] Patient continues with poor p.o. intake and poor participation in therapy due to her encephalopathy and likely underlying cognitive impairment. If continues to fail to thrive, suggested palliative care consultation to the -this could be performed as an outpatient at the halfway facility Possibly stable for discharge on Thursday if bed available at [facility] and after infectious disease consultation to determine course and length of treatment and if final culture results are back Subjective Patient very drowsy this morning and did receive tramadol overnight and again this morning for pain. She does not tolerate this medicine very well due to excessive sedation. Her is at the bedside. He is still hopeful that she will recover to her baseline mental status but does note that she is failing to thrive. He is concerned that she is refusing to eat anything, refusing to participate in movement out of the bed. He questions what to do next if she continues to fail to thrive and we discussed transitioning to palliative measures if that is the case in the future. For now, we discussed the fact that her vitals are stable, her electrolytes and kidney function are normal. Encouraged her to help her eat meals and drink her supplemental protein shakes. The patient would not wake up for me at all or answer any of my questions, however she did open her eyes and look at me briefly and then close them again. Nursing also reports that she has incontinence to stool and incontinence to urine. She has pulled her external catheter out dripping with urine and holds it over the floor to drip urine on the floor Review of Systems Review of Systems: Unobtainable due to reduced consciousness Physical Exam Constitutional: average body habitus; no acute distress Eyes: + anicteric sclerae Neck: trachea midline, no thyromegaly Respiratory: normal respiratory effort, lungs clear to auscultation Cardiovascular: RRR, no murmur, no edema Chest (Breasts): Chest: normal inspection of chest Gastrointestinal (Abdomen): normal bowel sounds, soft, nontender, no hepatosplenomegaly Musculoskeletal: Extremities: + extremities abnormal to inspection (rt hip with dressing in place), no cyanosis and no clubbing Skin: no rashes, warm and dry Results & Data Vital Signs (Past 12 Hours) Vital Signs Temp Pulse Resp BP Pulse Ox 06/26/19 07:25 36.4 C L 82 16 110/69 93 Laboratory Results 06/26/19 06/26/19 Range/Units 03:09 03:09 Creatinine 0.46 L (0.6-1.2) mg/dl Est Cr Clr Drug Dosing 74.6 ml/min Est GFR ( Amer) 107.4 Est GFR (Non-Af Amer) 92.6 Vancomycin Trough 19.9 (See Comment) mcg/ml Culture results from synovial fluid-no growth to date Vitamin B1 level 452 PG Care Time/CCT Total # of Minutes Spent Total Time Spent with Patient: Total time spent is greater than 50% in coordination of care (as documented) at patient's floor/unit and/or counseling patient: (1) UTI (urinary tract infection) Hematuria presence: with hematuria Urinary tract infection type: acute cystitis Qualified Code(s): N30.01 - Acute cystitis with hematuria
[2019-06-26] MEDS ORDERED: TRAMADOL HCL 50 MG TABLET PO PRN (13:03)
[2019-06-26] MEDS: VANCOMYCIN HCL 1,000 MG in SODIUM CHLORIDE 0.9% 250 ML IV SCH (15:46)
[2019-06-26] MEDS: ENOXAPARIN INJ 40 MG/0.4 ML SYR SQ SCH (20:16)
[2019-06-26] MEDS: ACETAMINOPHEN 325 MG TAB PO PRN (20:18)
[2019-06-26] MEDS: LATANOPROST 0.005% OP SOLN 2.5 ML BTL OP SCH (20:19)
[2019-06-27] MEDS ORDERED: VANCOMYCIN TROUGH SCH (03:30)
[2019-06-27] MEDS: VANCOMYCIN HCL 1,000 MG in SODIUM CHLORIDE 0.9% 250 ML IV SCH ×2 (04:03→16:30)
[2019-06-27] MEDS: PIPERACILLIN/TAZOBACTAM 3.375 GM in DEXTROSE 5% 100 ML IV SCH ×3 (04:03→20:37)
[2019-06-27 06:16] LABS: Basophils # (auto) 0.02 K/uL (0-0.2); Basophils % (auto) 0.2 %; Eosinophils # (auto) 0.66 K/uL (0-0.5); Eosinophils % (auto) 7.5 %; Hematocrit (blood only) 36.5 % (37-47); Hemoglobin 12.1 g/dL (12.0-16.0); Immature Granulocytes # (auto) 0.02 K/uL (0.00-0.02); Immature Granulocytes % (auto) 0.2 %; Lymphocytes # (auto) 1.02 K/uL (1.2-3.4); Lymphocytes % (auto) 11.6 %; Mean Corpuscular Hemoglobin 34.7 pg (25-34); Mean Corpuscular Hgb Conc 33.2 g/dL (32-36); Mean Corpuscular Volume 104.6 fL (80-100); Mean Platelet Volume 11.9 fL (7.4-10.4); Monocytes # (auto) 0.72 K/uL (0.11-0.59); Monocytes % (auto) 8.2 %; Neutrophils # (auto) 6.34 K/uL (1.4-6.5); Neutrophils % (auto) 72.3 %; Platelet Count 421 K/uL (130-400); RDW Coefficient of Variation 13.5 % (11.5-14.5); RDW Standard Deviation 51.9 fL (36.4-46.3); Red Blood Count 3.49 M/uL (4.2-5.4); White Blood Count 8.78 K/uL (4.8-10.8)
[2019-06-27] MEDS: LEVOTHYROXINE SODIUM 75 MCG TABLET PO SCH (06:24)
[2019-06-27 06:58] LABS: BUN Creatinine Ratio 15.6 (10-20); C Reactive Protein 9.38 mg/dl (0-0.29); Creatinine Clr Calc Pharmacy 67.3 ml/min; Est GFR (African American) 103.8; Est GFR (Non-African American) 89.5; Potassium 3.2 mmol/L (3.5-5.1)
[2019-06-27] MEDS ORDERED: POTASSIUM CHLORIDE 20 MEQ TABCR PO STA (08:31)
--- NOTE | 2019-06-27 09:37 | Infectious Disease Consult ---
Date of Consultation June 27, 2019 Assessment & Plan (1) UTI (urinary tract infection): can continue current abx for now, if hip aspirate negative will likely narrow therapy. blood cultures negative. was on abx at time of aspiration, could be reason for negative culture to date, will follow. History of Present Illness Attending Physician: Long [place] MD pt admitted with change in mental status. afebrile since admission, nonverbal on my exam, opens eyes. started on vanco and zosyn, tolerating well. wbc 11, ESR 49, creat 0.4. 06/17 UA > 30 wbc, +4 bacteria, culture growing pansensitive E. coli. 06/20 MRI hip with effusion, no osteo. hip aspirated on 06/24 - ngtd. ID consulted for ? septic arthritis. Allergies Allergy/AdvReac Type Severity Reaction Status Date / Time cefdinir Allergy Unknown Verified 06/17/19 19:08 clindamycin Allergy Unknown Verified 06/17/19 19:08 hydroxychloroquine Allergy Unknown Verified 06/17/19 19:08 fluconazole AdvReac Unknown Verified 06/17/19 19:08 Home Medications Home Medications Medication Instructions Recorded Confirmed Type acetaminophen [Tylenol] 650 mg PO Q6H PRN 06/17/19 06/17/19 History aspirin [Aspir-81] 81 mg PO DAILY 06/17/19 06/17/19 History atenolol 25 mg PO BID 06/17/19 06/17/19 History cholecalciferol (vitamin D3) 2,000 unit PO DAILY 06/17/19 06/17/19 History [Vitamin D3] diphenhydramine HCl 50 mg PO .Q24HRS PRN 06/17/19 06/17/19 History estradiol 0 mg TOPICAL 2XWK 06/17/19 06/17/19 History fexofenadine [Mindy Allergy] 60 mg PO DAILY 06/17/19 06/17/19 History flaxseed oil 1,000 mg PO DAILY 06/17/19 06/17/19 History ipratropium bromide 0 ml INHALATION QID 06/17/19 06/17/19 History latanoprost 1 drp OPHTHALMIC (EYE) PM 06/17/19 06/17/19 History levothyroxine 75 mcg PO DAILY 06/17/19 06/17/19 History lorazepam 1 mg PO DAILY PRN 06/17/19 06/17/19 History magnesium oxide 400 mg PO BID 06/17/19 06/17/19 History mirabegron [Myrbetriq] 50 mg PO DAILY 06/17/19 06/17/19 History multivitamin 1 tab PO DAILY 06/17/19 06/17/19 History omeprazole 20 mg PO BID 06/17/19 06/17/19 History polyethylene glycol 3350 [Miralax] 17 g PO DAILY 06/17/19 06/17/19 History simethicone 125 mg PO Q8 PRN 06/17/19 06/17/19 History Patient History Medical History Absolute glaucoma of both eyes Alcohol abuse Anxiety Dementia GERD (gastroesophageal reflux disease) Goals of care, counseling/discussion Hyperlipidemia Hypertension Hypokalemia Hypothyroid Neuromuscular dysfunction of bladder, unspecified Surgical History History of appendectomy History of tonsillectomy and adenoidectomy Social History Preferred Language: Turkish Custodian Required: No marital status: Current Living Situation: [facility] Feels Safe at Home: Declines to Answer Smoking Status: Unknown if ever smoked Review of Systems Review of Systems: Unobtainable due to cognitive status Physical Exam Constitutional: WD/WN, vitals as above Eyes: PERRL, conjunctivae normal, anicteric sclerae ENMT: external ear and nose normal, oropharynx normal Neck: normal visual inspection Respiratory: normal respiratory effort, lungs clear to auscultation Cardiovascular: RRR, no murmur, no edema Gastrointestinal (Abdomen): normal bowel sounds, soft, nontender, no h epatosplenomegaly Musculoskeletal: no cyanosis or clubbing, extremities motor strength 5/5 Skin: no rashes, warm and dry Psychiatric: Orientation: alert Results & Data Vital Signs (Past 12 Hours) Vital Signs Temp Pulse Pulse Resp BP Pulse Ox 06/27/19 07:35 36.6 C 66 20 137/76 93 06/26/19 23:25 36.5 C 81 18 134/73 95 Laboratory Results Microbiology 06/24/19 12:04 Hip,Right Gram Stain - Final 06/24/19 12:04 Hip,Right Aerobic and Anaerobic Culture - Preliminary No growth to date. 06/24/19 12:01 Hip,Right Gram Stain - Final 06/24/19 12:01 Hip,Right Aerobic and Anaerobic Culture - Preliminary No growth to date. 06/17/19 16:28 Blood Aerobic Blood Culture - Final No growth in Aerobic bottle after 5 days. 06/17/19 16:28 Blood Anaerobic Blood Culture - Final No growth in Anaerobic bottle after 5 days. 06/17/19 16:16 Blood Aerobic Blood Culture - Final No growth in Aerobic bottle after 5 days. 06/17/19 16:16 Blood Anaerobic Blood Culture - Final No growth in Anaerobic bottle after 5 days. 06/17/19 15:50 Urine,Clean Catch Urine Culture - Final Escherichia coli PG Care Time/CCT Total # of Minutes Spent Total Time Spent with Patient: Total time spent is greater than 50% in coordination of care (as documented) at patient's floor/unit and/or counseling patient: (1) UTI (urinary tract infection) Hematuria presence: with hematuria Urinary tract infection type: acute cystitis Qualified Code(s): N30.01 - Acute cystitis with hematuria
[2019-06-27] MEDS: PANTOprazole 40 MG TAB PO SCH ×2 (09:38→20:48)
[2019-06-27] MEDS: MAGNESIUM OXIDE 400 MG TAB PO SCH ×2 (09:39→20:48)
[2019-06-27] MEDS: MULTIVITAMIN TAB PO SCH (09:39)
[2019-06-27] MEDS: FOLIC ACID 1 MG TAB PO SCH (09:39)
[2019-06-27] MEDS: ATENOLOL 25 MG TABLET PO SCH ×2 (09:39→20:48)
[2019-06-27] MEDS: THIAMINE HCL 100 MG TAB PO SCH (09:40)
[2019-06-27] MEDS: CHOLECALCIFEROL 1,000 UNITS TAB PO SCH (09:40)
[2019-06-27] MEDS: POLYETHYLENE (MIRALAX) 17 GM PACK PO SCH (09:43)
[2019-06-27] MEDS: ACETAMINOPHEN 325 MG TAB PO PRN (13:23)
[2019-06-27] MEDS ORDERED: TRAMADOL HCL 50 MG TABLET PO PRN (17:02)
--- NOTE | 2019-06-27 17:02 | Hospitalist Progress Note ---
Date of Service June 27, 2019 Assessment & Plan (1) Right hip joint effusion: Concern for septic joint given fever, WBC and CT imaging showing complex fluid collection. -not able to get right hip aspiration under fluoro guidance due to poor cooperation by patient Now s/p washout of hip with removal of large amount of brown-colored joint fluid with white clumps noted on 06/24/18 by Ortho ESR >90, Joint fluid cultures with no growth to date Blood cultures no growth-final - ID consulted -Continue broad-spectrum antibiotics with Zosyn and vancomycin for now -Continue to follow intraoperative cultures -Ultrasound guided peripheral IV was placed on 06/23 and can remain in place for 4 weeks -Continue to follow ESR, CRP, CBC -Continue Tylenol as needed for pain, tramadol increased back to 50 mg as 25 mg was not helping to manage the pain (2) Wernicke encephalopathy: Concern for Wernicke's/Korsakoff given history of recurrent falls leading to memory impairment, delirium and eventual apathy. Ongoing confusion and disinhibition of speech and thought process Not much improvement since admission -Continue empiric high-dose thiamine supplementation initially with IV thiaminedecreased now to 100 mg p.o. daily. -Serial exams, supportive care -DC'd PRN Ativan (3) Toxic encephalopathy: Baseline reported prior to [facility] admission on 05 June: Able to have full conversations. Possible undiagnosed dementia but appeared to be much worse during admission to [facility]. Recurrent falls prior to admission but started being completely immobile during that admission. She apparently was walking (with assistance) at [facility] but become more generalized fatigue, suspected due to Librium use which was discontinued on 11 June. [facility] notes suggest bed bound status, sleeping most of the day, not taking medication or much/any oral intake in general. This is very similar to how she is now -she did have one fever at [facility] on 11 June but blood cultures where negative and UA was apparently "clean for infection". She was deemed incompetent to make medical decisions at [facility] (although psychiatry assessment suggest a significant decline from to 10 June assessment. She now has a guardian in place from office of aging. Cannot be discharged without first discussing with guardian. I believe the temporary guardianship agreement expires sometime this week-Case management is involved CT head unremarkable CT A/P performed to assess for ascites and there is none However findings concerning for septic arthritis as above Unclear if this is simple delirium/metabolic encephalopathy, but hopefully this could be the case. Continue serial exams and supportive care. Palliative care consulted 06/20 - given her current legal status with [employer] as her guardian and her inability to really voice her own wishes, no decisions toward a more palliative approach can be made (4) Hypernatremia: Resolvedcontinue to follow, follow oral intake and follow-up basic metabolic panel (5) UTI (urinary tract infection): Ur cx E. coli pansensitive-she is already received enough days of jose daniel tment of antibiotics for UTI but continues on them for hip as above In hindsight, this was not likely contributing towards her encephalopathy as it should be cleared and she continues to be confused, see above otherwise (6) Alcoholism: No alcohol withdrawal as last alcohol drink suspected to be around 04 June. She had a positive ethanol level on admission to [facility] on and was treated with Librium there for suspected alcohol withdrawal. Thiamine supplementation as above -Continue folic acid and multivitamin daily (7) Sinus tachycardia: Likely was secondary to dehydration vs. reflex from atenolol discontinuation vs. appropriate in setting of infection. One episode of SVT on 06/18 which spontaneously resolved. -restarted atenolol, appears to be doing well in this regard now With normal sinus rhythm and normal rates (8) Hypokalemia: replaced -Encourage p.o. intake -Follow BMP (9) Hypomagnesemia: Replaced with IV magnesium and p.o. 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 twice daily -Now that she is no longer drinking alcohol, we could likely reduce this dose to once daily upon discharge (14) DVT prophylaxis: lovenox 40mg sq daily (15) Discharge planning issues: Family do not wish her to go back to [facility] (although actual decision down to office of aging). PT/OT ongoing eval and treat Disposition-awaiting rehab placement at [facility] Patient continues with poor p.o. intake and poor participation in therapy due to her encephalopathy and likely underlying cognitive impairment. If continues to fail to thrive, suggested palliative care consultation to the -this could be performed as an outpatient at the senior living [facility] Subjective Ms. Maravilla is oriented but lethargic. She does open her eyes when asked but then quickly falls back to sleep. ROS Constitutional: no chills, aches, sweats or fever Respiratory: no sob,cough, sputum, or wheezing Cardiac: no chest pain, palpitations, edema, orthopnea or lightheadedness GI: no abdominal pain, nausea, vomiting, diarrhea or constipation : no dysuria or hesitancy Extremities: no joint pain or weakness Skin: no rash All other systems reviewed and negative Physical Exam Physical Exam: General: no distress Eyes: normal inspection, PERLL Respiratory: chest non tender, clear to auscultation, normal breath sounds, no respiratory distress, no accessory muscle use Cardiac: regular rate and rhythm, no rub or gallop, no murmur, no edema, no jvd GI/: active bowel sounds, no abd pain or tenderness, soft, non distended Extremities: normal range of motion, normal strength, non tender Neuro/Psych: lethargic oriented x 3, patient unable to stay awake long enough to participate in CN assessment Skin: normal color, dry Results & Data Vital Signs (Past 12 Hours) Vital Signs Temp Pulse Pulse Resp BP BP Pulse Ox 06/27/19 16:08 37.0 C 74 17 130/78 95 06/27/19 07:35 36.6 C 66 20 137/76 93 PG Care Time/CCT Total # of Minutes Spent Total Time Spent with Patient: Total time spent is greater than 50% in coordination of care (as documented) at patient's floor/unit and/or counseling patient: (1) UTI (urinary tract infection) Urinary tract infection type: acute cystitis Hematuria presence: with hematuria Qualified Code(s): N30.01 - Acute cystitis with hematuria
[2019-06-27] MEDS: ENOXAPARIN INJ 40 MG/0.4 ML SYR SQ SCH (20:39)
[2019-06-27] MEDS: LATANOPROST 0.005% OP SOLN 2.5 ML BTL OP SCH (20:48)
[2019-06-28] MEDS ORDERED: VANCOMYCIN TROUGH SCH (03:30)
[2019-06-28] MEDS: VANCOMYCIN HCL 1,000 MG in SODIUM CHLORIDE 0.9% 250 ML IV SCH (04:03)
[2019-06-28] MEDS: PIPERACILLIN/TAZOBACTAM 3.375 GM in DEXTROSE 5% 100 ML IV SCH ×3 (04:03→19:46)
[2019-06-28 04:14] LABS: Est GFR (African American) 103.1
[2019-06-28] MEDS: LEVOTHYROXINE SODIUM 75 MCG TABLET PO SCH (06:12)
--- NOTE | 2019-06-28 06:36 | Orthopedic Progress Note ---
Date of Service June 28, 2019 Assessment & Plan (1) Right hip joint effusion: Unfortunately she still remains very confused. She is not participating well with physical therapy. She does not seem to be having too much hip pain on examination. She is generally noncooperative. So far the hip cultures Have not grown anything. We will continue the antibiotics for now. She is orthopedically stable for discharge when medically ready. The Jeanette VAC dressing will come off 7 days from the day of surgery. She is to follow-up with Dr. Alex in 2 to 3 weeks for staple removal. Our office phone number is [phone] Present on Admission?: Yes Jacek Finch was seen and examined at bedside this morning. Unfortunately she is still very confused. She is worried about a train to [place]. She does not seem to be having much pain in her right hip. She has not been ambulating well with physical therapy. Physical Exam Musculoskeletal: On physical examination of the right hip, her leg lengths are equal. The Jeanette VAC dressings to suction. She is unable to cooperate with a neurovascular examination. Results & Data Vital Signs (Past 12 Hours) Vital Signs Temp Pulse Pulse Resp BP Pulse Ox 06/27/19 23:10 36.5 C 83 16 138/80 95 06/27/19 20:46 95 H 133/74 PG Care Time/CCT Total # of Minutes Spent Total Time Spent with Patient: Total time spent is greater than 50% in coordination of care (as documented) at patient's floor/unit and/or counseling patient:
[2019-06-28 08:58] LABS: Mean Corpuscular Hemoglobin 34.5 pg (25-34); Mean Corpuscular Hgb Conc 33.3 g/dL (32-36); Mean Corpuscular Volume 103.4 fL (80-100); Mean Platelet Volume 11.3 fL (7.4-10.4); Platelet Count 464 K/uL (130-400); RDW Coefficient of Variation 13.5 % (11.5-14.5); RDW Standard Deviation 50.7 fL (36.4-46.3); Red Blood Count 3.48 M/uL (4.2-5.4); White Blood Count 8.55 K/uL (4.8-10.8)
--- NOTE | 2019-06-28 09:01 | Pharmacy Report ---
Pharmacy Abx Dose Short Note - Date of Service June 28, 2019 - Assessment & Plan Assessment 84 year old F receiving vancomycin and zosyn for possible septic arthritis/UTI Day # 12 of antimicrobial therapy. Plan Vancomycin * Trough level this am was supratherapeutic at 22.8 mcg/ml - (goal 15-20 mcg/ml) * Appears patient accumulating vancomycin, therefore will continue to reduce dosing. Will decrease to 750 mg iv q 12 hrs * Will wait to start new vancomycin dosing as level elevated this AM. Will schedule dose to start when estimated level closer to ~15 mcg/ml * ID consulted to follow patient. Plan is for continuation of current antibiotics for now. Hip aspirate likely negative due to patient already being on antibiotics prior Zosyn * 3.375 gm iv q 8 hrs - appropriate for CrCl >20 ml/min - no change Pharmacy will continue to follow and will adjust dose/frequency as necessary. Thank you.
[2019-06-28] MEDS: MAGNESIUM OXIDE 400 MG TAB PO SCH ×2 (09:31→21:45)
[2019-06-28] MEDS: ATENOLOL 25 MG TABLET PO SCH ×2 (09:31→21:46)
[2019-06-28] MEDS: CHOLECALCIFEROL 1,000 UNITS TAB PO SCH (09:31)
[2019-06-28] MEDS: POLYETHYLENE (MIRALAX) 17 GM PACK PO SCH (09:32)
[2019-06-28] MEDS: THIAMINE HCL 100 MG TAB PO SCH (09:32)
[2019-06-28] MEDS: FOLIC ACID 1 MG TAB PO SCH (09:32)
[2019-06-28] MEDS: PANTOprazole 40 MG TAB PO SCH ×2 (09:32→21:46)
[2019-06-28] MEDS: MULTIVITAMIN TAB PO SCH (09:32)
[2019-06-28 09:39] LABS: Albumin Level 2.1 gm/dl (3.4-5.0); BUN Creatinine Ratio 10.9 (10-20); Calcium 9.4 mg/dl (8.5-10.1); Creatinine Clr Calc Pharmacy 62.4 ml/min; Est GFR (African American) 101.2; Est GFR (Non-African American) 87.4
[2019-06-28 09:41] LABS: Albumin Globulin Ratio 0.5 (0.9-2); Bilirubin,Total 0.4 mg/dl (0.2-1); Globulin 4.2 gm/dl (2.5-4.0); Total Protein 6.3 gm/dl (6.4-8.2)
[2019-06-28] MEDS ORDERED: POTASSIUM CHLORIDE 20 MEQ TABCR PO ONE (10:15)
--- NOTE | 2019-06-28 14:11 | Infectious Disease Progress Nt ---
Date of Service June 28, 2019 Assessment & Plan (1) UTI (urinary tract infection): can continue current abx for now,blood cultures negative. was on abx at time of aspiration, could be reason for negative culture to date, will continue current abx for now, would give 3 weeks total. will follow. Subjective remains afebrile hip aspirate negative, blood cultures negative wbc 8.5, tolerating abx. Results & Data Vital Signs (Past 12 Hours) Vital Signs Temp Pulse Resp BP Pulse Ox 06/28/19 07:01 36.5 C 87 16 148/81 H 94 Laboratory Results Microbiology 06/24/19 12:04 Hip,Right Gram Stain - Final 06/24/19 12:04 Hip,Right Aerobic and Anaerobic Culture - Preliminary No growth to date. 06/24/19 12:01 Hip,Right Gram Stain - Final 06/24/19 12:01 Hip,Right Aerobic and Anaerobic Culture - Preliminary No growth to date. 06/17/19 16:28 Blood Aerobic Blood Culture - Final No growth in Aerobic bottle after 5 days. 06/17/19 16:28 Blood Anaerobic Blood Culture - Final No growth in Anaerobic bottle after 5 days. 06/17/19 16:16 Blood Aerobic Blood Culture - Final No growth in Aerobic bottle after 5 days. 06/17/19 16:16 Blood Anaerobic Blood Culture - Final No growth in Anaerobic bottle after 5 days. 06/17/19 15:50 Urine,Clean Catch Urine Culture - Final Escherichia coli PG Care Time/CCT Total # of Minutes Spent Total Time Spent with Patient: Total time spent is greater than 50% in coordination of care (as documented) at patient's floor/unit and/or counseling patient: (1) UTI (urinary tract infection) Hematuria presence: with hematuria Urinary tract infection type: acute cystitis Qualified Code(s): N30.01 - Acute cystitis with hematuria
--- NOTE | 2019-06-28 17:18 | Hospitalist Progress Note ---
Date of Service June 28, 2019 Assessment & Plan (1) Right hip joint effusion: Concern for septic joint given fever, WBC and CT imaging showing complex fluid collection. -not able to get right hip aspiration under fluoro guidance due to poor cooperation by patient Now s/p washout of hip with removal of large amount of brown-colored joint fluid with white clumps noted on 06/24/18 by Ortho ESR >90, Joint fluid cultures with no growth to date Blood cultures no growth-final - ID consulted -Continue broad-spectrum antibiotics with Zosyn and vancomycin - will need 3 weeks total -Continue to follow intraoperative cultures - no growth to date -Ultrasound guided peripheral IV was placed on 06/23 and can remain in place for 4 weeks -Continue to follow ESR, CRP, CBC -Continue Tylenol as needed for pain, tramadol increased back to 50 mg as 25 mg was not helping to manage the pain (2) Wernicke encephalopathy: Concern for Wernicke's/Korsakoff given history of recurrent falls leading to memory impairment, delirium and eventual apathy. Ongoing confusion and disinhibition of speech and thought process Not much improvement since admission -Continue empiric high-dose thiamine supplementation initially with IV thiaminedecreased now to 100 mg p.o. daily. -Serial exams, supportive care -DC'd PRN Ativan (3) Toxic encephalopathy: Baseline reported prior to [facility] admission on 05 June: Able to have full conversations. Possible undiagnosed dementia but appeared to be much worse during admission to [facility]. Recurrent falls prior to admission but started being completely immobile during that admission. She apparently was walking (with assistance) at [facility] but become more generalized fatigue, suspected due to Librium use which was discontinued on 11 June. [facility] notes suggest bed bound status, sleeping most of the day, not taking medication or much/any oral intake in general. This is very similar to how she is now -she did have one fever at [facility] on 11 June but blood cultures where negative and UA was apparently "clean for infection". She was deemed incompetent to make medical decisions at [facility] (although psychiatry assessment suggest a significant decline from to 10 June assessment. She now has a guardian in place from office of aging. Cannot be discharged without first discussing with guardian. CT head unremarkable CT A/P performed to assess for ascites and there is none However findings concerning for septic arthritis as above Unclear if this is simple delirium/metabolic encephalopathy, but hopefully this could be the case especially with waxing and waning nature. Continue serial exams and supportive care. B12 was above normal, TSH was wnl Folic acid and thiamine replacement provided Palliative care consulted 06/20 - given her current legal status with [employer] as her guardian and her inability to really voice her own wishes, no decisions toward a more palliative approach can be made (4) Hypernatremia: Resolvedcontinue to follow, follow oral intake and follow-up basic metabolic panel (5) UTI (urinary tract infection): Ur cx E. coli pansensitive-she is already received enough days of treatment of antibiotics for UTI but continues on them for hip as above (6) Alcoholism: No alcohol withdrawal as last alcohol drink suspected to be around 04 June. She had a positive ethanol level on admission to [facility] on and was treated with Librium there for suspected alcohol withdrawal. Thiamine supplementation as above -Continue folic acid and multivitamin daily (7) Sinus tachycardia: Likely was secondary to dehydration vs. reflex from atenolol discontinuation vs. appropriate in setting of infection. One episode of SVT on 06/18 which spontaneously resolved. -restarted atenolol, appears to be doing well in this regard now With normal sinus rhythm and normal rates (8) Hypokalemia: ongoing - replaced -Encourage p.o. intake -Follow BMP (9) Hypomagnesemia: Replaced with IV magnesium and p.o. 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 twice daily -Now that she is no longer drinking alcohol, we could likely reduce this dose to once daily upon discharge (14) DVT prophylaxis: lovenox 40mg sq daily (15) Discharge planning issues: Family do not wish her to go back to [facility] (although actual decision down to office of aging). PT/OT ongoing eval and treat Disposition-awaiting rehab placement at [facility] Ms. Maravilla was much more awake today than yesterday though less oriented, unable to tell me where she is or the date. She reports her pain is a 7/10 in her back and hip. ROS Constitutional: no chills, aches, sweats or fever Respiratory: no sob,cough, sputum, or wheezing Cardiac: no chest pain, palpitations, edema, orthopnea or lightheadedness GI: no abdominal pain, nausea, vomiting, diarrhea or constipation : no dysuria or hesitancy Extremities: no joint pain or weakness Skin: no rash All other systems reviewed and negative Physical Exam Physical Exam: General: no distress Eyes: normal inspection, PERLL Respiratory: chest non tender, clear to auscultation, normal breath sounds, no respiratory distress, no accessory muscle use Cardiac: regular rate and rhythm, no rub or gallop, no murmur, no edema, no jvd GI/: active bowel sounds, no abd pain or tenderness, soft, non distended Extremities: normal range of motion, normal strength, non tender Neuro/Psych:alert and oriented to self, normal mood and affect Skin: normal color, dry Results & Data Vital Signs (Past 12 Hours) Vital Signs Temp Pulse Resp BP BP Pulse Ox 06/28/19 15:56 36.9 C 96 H 18 159/70 H 94 06/28/19 07:01 36.5 C 87 16 148/81 H 94 PG Care Time/CCT Total # of Minutes Spent Total Time Spent with Patient: Total time spent is greater than 50% in coordination of care (as documented) at patient's floor/unit and/or counseling patient: (1) UTI (urinary tract infection) Urinary tract infection type: acute cystitis Hematuria presence: with hematuria Qualified Code(s): N30.01 - Acute cystitis with hematuria
[2019-06-28] MEDS: ENOXAPARIN INJ 40 MG/0.4 ML SYR SQ SCH (21:45)
[2019-06-28] MEDS: LATANOPROST 0.005% OP SOLN 2.5 ML BTL OP SCH (21:46)
[2019-06-28] MEDS: VANCOMYCIN HCL 750 MG in SODIUM CHLORIDE 0.9% 250 ML IV SCH (21:52)
[2019-06-29] MEDS: PIPERACILLIN/TAZOBACTAM 3.375 GM in DEXTROSE 5% 100 ML IV SCH ×3 (03:57→19:24)
[2019-06-29] MEDS: LEVOTHYROXINE SODIUM 75 MCG TABLET PO SCH (05:15)
[2019-06-29 06:22] LABS: Creatinine Clr Calc Pharmacy 60.2 ml/min; Est GFR (African American) 100.1; Est GFR (Non-African American) 86.3
--- NOTE | 2019-06-29 07:17 | Orthopedic Progress Note ---
Date of Service June 29, 2019 Assessment & Plan (1) Right hip joint effusion: So far her cultures have not grown out anything. Her sed rate and CRP initially dropped after the surgery but they are rising back up again. She has been on the antibiotics. She is not cooperating with physical examination. She has not been working well with physical therapy. She is orthopedically stable for discharge when medically ready. I will see her in the office 2 to 3 weeks from her day of surgery for staple removal. Present on Admission?: Yes Subjective Juan was seen and examined at bedside this morning. Unfortunately she is very frustrated that she is still in the hospital. She does not seem to be having much pain in her right hip. She is unable to answer any other questions for me. She did tear off her Jeanette VAC dressing last night. Physical Exam Musculoskeletal: On physical examination of the right hip, the incision is clean and dry. There is a small blister on the lateral aspect which is covered. Results & Data Vital Signs (Past 12 Hours) Vital Signs Temp Pulse Resp BP Pulse Ox 06/29/19 00:25 36.9 C 86 16 155/71 H 93 PG Care Time/CCT Total # of Minutes Spent Total Time Spent with Patient: Total time spent is greater than 50% in coordination of care (as documented) at patient's floor/unit and/or counseling patient:
[2019-06-29] MEDS: CHOLECALCIFEROL 1,000 UNITS TAB PO SCH (07:28)
[2019-06-29] MEDS: ATENOLOL 25 MG TABLET PO SCH ×2 (07:29→20:30)
[2019-06-29] MEDS: PANTOprazole 40 MG TAB PO SCH ×2 (07:29→20:31)
[2019-06-29] MEDS: THIAMINE HCL 100 MG TAB PO SCH (07:29)
[2019-06-29] MEDS: FOLIC ACID 1 MG TAB PO SCH (07:29)
[2019-06-29] MEDS: POLYETHYLENE (MIRALAX) 17 GM PACK PO SCH (07:29)
[2019-06-29] MEDS: MULTIVITAMIN TAB PO SCH (07:29)
[2019-06-29] MEDS: MAGNESIUM OXIDE 400 MG TAB PO SCH ×2 (07:29→20:31)
--- NOTE | 2019-06-29 08:46 | Infectious Disease Progress Nt ---
Date of Service June 29, 2019 Assessment & Plan (1) UTI (urinary tract infection): discussed with primary service. Unclear if hip effusion if infected, cultures are negative but she was on abx at time of culture which may be reason for negative culture. ESR remains >90 suggesting infected fluid, additionally fluid was cloudy. would suggest continued IV abx, in the range of 3-4 weeks. blood culture negative. will need weekly cbc, cmp, esr, vanco trough, maintain 15-20. ok for d/c from ID standpoint. (2) Effusion of hip: Subjective pt remains on IV vanco and zosyn, tolerating well. afebrile. ESR remains elevated >90. blood cultures negative OR culture negative as well. creat 0.5 Results & Data Vital Signs (Past 12 Hours) Vital Signs Temp Pulse Pulse Resp BP Pulse Ox 06/29/19 07:53 91 H 16 117/59 L 98 06/29/19 00:25 36.9 C 86 16 155/71 H 93 Laboratory Results Microbiology 06/24/19 12:04 Hip,Right Gram Stain - Final 06/24/19 12:04 Hip,Right Aerobic and Anaerobic Culture - Preliminary No growth to date. 06/24/19 12:01 Hip,Right Gram Stain - Final 06/24/19 12:01 Hip,Right Aerobic and Anaerobic Culture - Preliminary No growth to date. 06/17/19 16:28 Blood Aerobic Blood Culture - Final No growth in Aerobic bottle after 5 days. 06/17/19 16:28 Blood Anaerobic Blood Culture - Final No growth in Anaerobic bottle after 5 days. 06/17/19 16:16 Blood Aerobic Blood Culture - Final No growth in Aerobic bottle after 5 days. 06/17/19 16:16 Blood Anaerobic Blood Culture - Final No growth in Anaerobic bottle after 5 days. 06/17/19 15:50 Urine,Clean Catch Urine Culture - Final Escherichia coli PG Care Time/CCT Total # of Minutes Spent Total Time Spent with Patient: Total time spent is greater than 50% in c oordination of care (as documented) at patient's floor/unit and/or counseling patient: (1) UTI (urinary tract infection) Hematuria presence: with hematuria Urinary tract infection type: acute cystitis Qualified Code(s): N30.01 - Acute cystitis with hematuria
[2019-06-29 09:10] LABS: Basophils # (auto) 0.04 K/uL (0-0.2); Basophils % (auto) 0.3 %; Eosinophils # (auto) 0.28 K/uL (0-0.5); Eosinophils % (auto) 2.1 %; Hematocrit (blood only) 34.8 % (37-47); Hemoglobin 11.2 g/dL (12.0-16.0); Immature Granulocytes # (auto) 0.03 K/uL (0.00-0.02); Immature Granulocytes % (auto) 0.2 %; Lymphocytes # (auto) 0.98 K/uL (1.2-3.4); Lymphocytes % (auto) 7.4 %; Mean Corpuscular Hemoglobin 34.1 pg (25-34); Mean Corpuscular Hgb Conc 32.2 g/dL (32-36); Mean Corpuscular Volume 106.1 fL (80-100); Mean Platelet Volume 11.3 fL (7.4-10.4); Monocytes # (auto) 0.89 K/uL (0.11-0.59); Monocytes % (auto) 6.7 %; Neutrophils # (auto) 11.06 K/uL (1.4-6.5); Neutrophils % (auto) 83.3 %; Platelet Count 470 K/uL (130-400); RDW Coefficient of Variation 13.6 % (11.5-14.5); RDW Standard Deviation 52.9 fL (36.4-46.3); Red Blood Count 3.28 M/uL (4.2-5.4); White Blood Count 13.28 K/uL (4.8-10.8)
[2019-06-29 09:33] LABS: BUN Creatinine Ratio 9.3 (10-20); C Reactive Protein 5.53 mg/dl (0-0.29); Calcium 9.1 mg/dl (8.5-10.1); Creatinine Clr Calc Pharmacy 60.2 ml/min; Est GFR (African American) 100.1; Est GFR (Non-African American) 86.3; Potassium 3.2 mmol/L (3.5-5.1)
[2019-06-29 09:36] LABS: Albumin Globulin Ratio 0.5 (0.9-2); Bilirubin,Total 0.4 mg/dl (0.2-1); Globulin 4.2 gm/dl (2.5-4.0); Total Protein 6.2 gm/dl (6.4-8.2)
[2019-06-29] MEDS: VANCOMYCIN HCL 750 MG in SODIUM CHLORIDE 0.9% 250 ML IV SCH ×2 (09:40→23:18)
[2019-06-29] MEDS ORDERED: POTASSIUM CHLORIDE 20 MEQ TABCR PO STA (17:11)
--- NOTE | 2019-06-29 17:11 | Hospitalist Progress Note ---
Date of Service June 29, 2019 Assessment & Plan (1) Right hip joint effusion: Concern for septic joint given fever, WBC and CT imaging showing complex fluid collection. -not able to get right hip aspiration under fluoro guidance due to poor cooperation by patient Now s/p washout of hip with removal of large amount of brown-colored joint fluid with white clumps noted on 06/24/18 by Ortho ESR >90, Joint fluid cultures with no growth to date Blood cultures no growth-final - ID consulted -Continue broad-spectrum antibiotics with Zosyn and vancomycin - will need 3 -4 weeks total -intraoperative cultures - no growth to date -Ultrasound guided peripheral IV was placed on 06/23 and can remain in place for 4 weeks -Will need weekly CBC, PRP, Sed rate and CRP while on IV abx -Continue Tylenol as needed for pain, tramadol WBCs elevated to 13 today, platelets continue to trend up - will repeat cbc in the morning (2) Wernicke encephalopathy: Concern for Wernicke's/Korsakoff given history of recurrent falls leading to memory impairment, delirium and eventual apathy. Ongoing confusion and disinhibition of speech and thought process Not much improvement since admission -Continue empiric high-dose thiamine supplementation initially with IV thiaminedecreased now to 100 mg p.o. daily. -Serial exams, supportive care -DC'd PRN Ativan (3) Toxic encephalopathy: Baseline reported prior to [facility] admission on 05 June: Able to have full conversations. Possible undiagnosed dementia but appeared to be much worse during admission to [facility]. Recurrent falls prior to admission but started being completely immobile during that admission. She apparently was walking (with assistance) at [facility] but become more generalized fatigue, suspected due to Librium use which was discontinued on 11 June. [facility] notes suggest bed bound status, sleeping most of the day, not taking medication or much/any oral intake in general. This is very similar to how she is now -she did have one fever at [facility] on 11 June but blood cultures where negative and UA was apparently "clean for infection". She was deemed incompetent to make medical decisions at [facility] (although psychiatry assessment suggest a significant decline from to 10 June assessment. She now has a guardian in place from office of aging. Cannot be discharged without first discussing with guardian. CT head unremarkable CT A/P performed to assess for ascites and there is none However findings concerning for septic arthritis as above Unclear if this is simple delirium/metabolic encephalopathy, but hopefully this could be the case especially with waxing and waning nature. Continue serial exams and supportive care. B12 was above normal, TSH was wnl Folic acid and thiamine replacement provided Palliative care consulted 06/20 - given her current legal status with [employer] as her guardian and her inability to really voice her own wishes, no decisions toward a more palliative approach can be made (4) Hypernatremia: Resolvedcontinue to follow, follow oral intake and follow-up basic metabolic panel (5) UTI (urinary tract infection): Ur cx E. coli pansensitive-she is already received enough days of treatment of antibiotics for UTI but continues on them for hip as above (6) Alcoholism: No alcohol withdrawal as last alcohol drink suspected to be around 04 June. She had a positive ethanol level on admission to [facility] on and was treated with Librium there for suspected alcohol withdrawal. Thiamine supplementation as above -Continue folic acid and multivitamin daily (7) Sinus tachycardia: Likely was secondary to dehydration vs. reflex from atenolol discontinuation vs. appropriate in setting of infection. One episode of SVT on 06/18 which spontaneously resolved. -restarted atenolol, appears to be doing well in this regard now With normal sinus rhythm and normal rates (8) Hypokalemia: ongoing - replaced -Encourage p.o. 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 twice daily -Now that she is no longer drinking alcohol, we could likely reduce this dose to once daily upon discharge (14) DVT prophylaxis: lovenox 40mg sq daily (15) Discharge planning issues: Family do not wish her to go back to [facility] (although actual decision down to office of aging). PT/OT ongoing eval and treat Disposition-awaiting rehab placement at [facility] Ms. Maravilla denies pain or discomfort today. She is awake but disoriented. ROS Constitutional: no chills, aches, sweats or fever Respiratory: no sob,cough, sputum, or wheezing Cardiac: no chest pain, palpitations, edema, orthopnea or lightheadedness GI: no abdominal pain, nausea, vomiting, diarrhea or constipation : no dysuria or hesitancy Extremities: no joint pain or weakness Skin: no rash All other systems reviewed and negative Physical Exam Physical Exam: General: no distress Eyes: normal inspection, PERLL Respiratory: chest non tender, clear to auscultation, normal breath sounds, no respiratory distress, no accessory muscle use Cardiac: regular rate and rhythm, no rub or gallop, no murmur, no edema, no jvd GI/: active bowel sounds, no abd pain or tenderness, soft, non distended Extremities: normal range of motion, normal strength, non tender Neuro/Psych: alert and oriented to person only, flat affect Skin: normal color, dry Results & Data Vital Signs (Past 12 Hours) Vital Signs Temp Pulse Pulse Resp BP Pulse Ox 06/29/19 16:01 37.0 C 89 17 134/76 98 06/29/19 07:53 91 H 16 117/59 L 98 PG Care Time/CCT Total # of Minutes Spent Total Time Spent with Patient: Total time spent is greater than 50% in coordination of care (as documented) at patient's floor/unit and/or counseling patient: (1) UTI (urinary tract infection) Urinary tract infection type: acute cystitis Hematuria presence: with hematuria Qualified Code(s): N30.01 - Acute cystitis with hematuria
[2019-06-29] MEDS: LATANOPROST 0.005% OP SOLN 2.5 ML BTL OP SCH (20:30)
[2019-06-29] MEDS: ENOXAPARIN INJ 40 MG/0.4 ML SYR SQ SCH (20:31)
[2019-06-30] MEDS: PIPERACILLIN/TAZOBACTAM 3.375 GM in DEXTROSE 5% 100 ML IV SCH ×3 (03:59→20:45)
[2019-06-30] MEDS: LEVOTHYROXINE SODIUM 75 MCG TABLET PO SCH (05:46)
[2019-06-30 06:25] LABS: Basophils # (auto) 0.05 K/uL (0-0.2); Basophils % (auto) 0.5 %; Eosinophils # (auto) 0.42 K/uL (0-0.5); Eosinophils % (auto) 4.3 %; Hematocrit (blood only) 32.8 % (37-47); Hemoglobin 10.7 g/dL (12.0-16.0); Immature Granulocytes # (auto) 0.03 K/uL (0.00-0.02); Immature Granulocytes % (auto) 0.3 %; Lymphocytes # (auto) 0.96 K/uL (1.2-3.4); Lymphocytes % (auto) 9.8 %; Mean Corpuscular Hgb Conc 32.6 g/dL (32-36); Mean Corpuscular Volume 104.1 fL (80-100); Mean Platelet Volume 11.5 fL (7.4-10.4); Monocytes # (auto) 0.96 K/uL (0.11-0.59); Monocytes % (auto) 9.8 %; Neutrophils # (auto) 7.39 K/uL (1.4-6.5); Neutrophils % (auto) 75.3 %; Platelet Count 430 K/uL (130-400); RDW Coefficient of Variation 13.7 % (11.5-14.5); RDW Standard Deviation 51.3 fL (36.4-46.3); Red Blood Count 3.15 M/uL (4.2-5.4); White Blood Count 9.81 K/uL (4.8-10.8)
[2019-06-30 06:56] LABS: BUN Creatinine Ratio 9.6 (10-20); Calcium 9.2 mg/dl (8.5-10.1); Creatinine Clr Calc Pharmacy 58.1 ml/min; Est GFR (African American) 98.9; Est GFR (Non-African American) 85.4; Magnesium 1.5 mg/dl (1.8-2.4); Potassium 3.1 mmol/L (3.5-5.1)
[2019-06-30 06:59] LABS: Albumin Globulin Ratio 0.5 (0.9-2); Bilirubin,Total 0.5 mg/dl (0.2-1); Globulin 4.1 gm/dl (2.5-4.0); Total Protein 6.1 gm/dl (6.4-8.2)
[2019-06-30] MEDS: CHOLECALCIFEROL 1,000 UNITS TAB PO SCH (08:43)
[2019-06-30] MEDS: ATENOLOL 25 MG TABLET PO SCH ×2 (08:43→20:46)
[2019-06-30] MEDS: MAGNESIUM OXIDE 400 MG TAB PO SCH ×2 (08:43→20:46)
[2019-06-30] MEDS: FOLIC ACID 1 MG TAB PO SCH (08:43)
[2019-06-30] MEDS: MULTIVITAMIN TAB PO SCH (08:43)
[2019-06-30] MEDS: THIAMINE HCL 100 MG TAB PO SCH (08:43)
[2019-06-30] MEDS: PANTOprazole 40 MG TAB PO SCH ×2 (08:43→20:46)
[2019-06-30] MEDS: MAGNESIUM SULFATE / D5W 1 GM/100 ML BAG IV SCH ×2 (08:47→09:50)
[2019-06-30] MEDS: POTASSIUM CHLORIDE 20 MEQ TABCR PO SCH ×2 (08:47→20:45)
[2019-06-30] MEDS: POLYETHYLENE (MIRALAX) 17 GM PACK PO SCH (08:47)
[2019-06-30] MEDS ORDERED: MAGNESIUM OXIDE 400 MG TAB PO SCH (09:00)
[2019-06-30] MEDS ORDERED: VANCOMYCIN TROUGH ONE (09:30)
--- NOTE | 2019-06-30 10:32 | Pharmacy Report ---
Pharmacy Abx Dose Short Note - Date of Service June 30, 2019 - Assessment & Plan Assessment 84 year old F receiving Vancomycin for treatment of septic arthritis. Day #14 of Vancomycin. Currently on Vanco 750 mg IV q12h after dose decreased 2 days ago. Trough was drawn today before dose at 1000 AM. Laboratory Tests 06/30/19 09:19 Vancomycin Trough 18.6 Plan Vancomycin * Trough level of 18.6 mcg/mL is therapeutic. * Continue dose of Vancomycin 750 mg IV every 12 hours. * Goal trough level for septic joint: 15 to 20 mcg/mL * Will re-check trough in few days to confirm level is still adequate. Pharmacy will continue to follow and will adjust dose/frequency as necessary. Thank you.
[2019-06-30] MEDS: VANCOMYCIN HCL 750 MG in SODIUM CHLORIDE 0.9% 250 ML IV SCH ×2 (10:48→20:57)
--- NOTE | 2019-06-30 16:08 | Hospitalist Progress Note ---
Date of Service June 30, 2019 Assessment & Plan (1) Right hip joint effusion: Concern for septic joint given fever, WBC and CT imaging showing complex fluid collection. -not able to get right hip aspiration under fluoro guidance due to poor cooperation by patient Now s/p washout of hip with removal of large amount of brown-colored joint fluid with white clumps noted on 06/24/18 by Ortho ESR 88, CRP 5.5 Joint fluid cultures with no growth to date Blood cultures no growth-final - ID consulted -Continue broad-spectrum antibiotics with Zosyn and vancomycin - will need 3 -4 weeks total -intraoperative cultures - no growth to date -Ultrasound guided peripheral IV was placed on 06/23 and can remain in place for 4 weeks -Will need weekly CBC, PRP, Sed rate and CRP while on IV abx -Continue Tylenol as needed for pain, tramadol (2) Wernicke encephalopathy: Concern for Wernicke's/Korsakoff given history of recurrent falls leading to memory impairment, delirium and eventual apathy. Ongoing confusion and disinhibition of speech and thought process Not much improvement since admission -Continue empiric high-dose thiamine supplementation initially with IV thiaminedecreased now to 100 mg p.o. daily. (3) Toxic encephalopathy: Baseline reported prior to [facility] admission on 05 June: Able to have full conversations. Possible undiagnosed dementia but appeared to be much worse during admission to [facility]. Recurrent falls prior to admission but started being completely immobile during that admission. She apparently was walking (with assistance) at [facility] but become more generalized fatigue, suspected due to Librium use which was discontinued on 11 June. [facility] notes suggest bed bound status, sleeping most of the day, not taking medication or much/any oral intake in general. This is very similar to how she is now -she did have one fever at [facility] on 11 June but blood cultures where negative and UA was apparently "clean for infection". She was deemed incompetent to make medical decisions at [facility] (although psychiatry assessment suggest a significant decline from to 10 June assessment. She now has a guardian in place from office of aging. Cannot be discharged without first discussing with guardian. CT head unremarkable CT A/P performed to assess for ascites and there is none However findings concerning for septic arthritis as above Unclear if this is simple delirium/metabolic encephalopathy, but hopefully this could be the case especially with waxing and waning nature. Continue serial exams and supportive care. B12 was above normal, TSH was wnl Folic acid and thiamine replacement provided Palliative care consulted 06/20 - given her current legal status with [employer] as her guardian and her inability to really voice her own wishes, no decisions toward a more palliative approach can be made (4) Hypernatremia: Resolvedcontinue to follow, follow oral intake and follow-up basic meta bolic panel (5) UTI (urinary tract infection): Ur cx E. coli pansensitive-she is already received enough days of treatment of antibiotics for UTI but continues on them for hip as above (6) Alcoholism: No alcohol withdrawal as last alcohol drink suspected to be around 04 June. She had a positive ethanol level on admission to [facility] on and was treated with Librium there for suspected alcohol withdrawal. Thiamine supplementation as above -Continue folic acid and multivitamin daily (7) Sinus tachycardia: Likely was secondary to dehydration vs. reflex from atenolol discontinuation vs. appropriate in setting of infection. One episode of SVT on 06/18 which spontaneously resolved. -restarted atenolol, appears to be doing well in this regard now With normal sinus rhythm and normal rates (8) Hypokalemia: ongoing - replaced -Encourage p.o. 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 twice daily -Now that she is no longer drinking alcohol, we could likely reduce this dose to once daily upon discharge (14) DVT prophylaxis: lovenox 40mg sq daily (15) Discharge planning issues: Family do not wish her to go back to [facility] (although actual decision down to office of aging). PT/OT ongoing eval and treat Disposition-awaiting rehab placement at [facility] Ms. Maravilla is awake and alert, disoriented. She has no complaints. She denies pain, sob or other discomfort Physical Exam Physical Exam: General: no distress Eyes: normal inspection, PERLL Respiratory: chest non tender, clear to auscultation, normal breath sounds, no respiratory distress, no accessory muscle use Cardiac: regular rate and rhythm, no rub or gallop, no murmur, no edema, no jvd GI/: active bowel sounds, no abd pain or tenderness, soft, non distended Extremities: normal range of motion, normal strength, non tender Neuro/Psych: alert and oriented x 3, normal mood and affect Skin: normal color, dry Results & Data Vital Signs (Past 12 Hours) Vital Signs Temp Pulse Resp BP Pulse Ox 06/30/19 15:08 36.5 C 89 18 128/70 95 06/30/19 07:46 36.8 C 89 18 133/81 95 PG Care Time/CCT Total # of Minutes Spent Total Time Spent with Patient: Total time spent is greater than 50% in coordination of care (as documented) at patient's floor/unit and/or counseling patient: (1) UTI (urinary tract infection) Urinary tract infection type: acute cystitis Hematuria presence: with hematuria Qualified Code(s): N30.01 - Acute cystitis with hematuria
[2019-06-30] MEDS: ENOXAPARIN INJ 40 MG/0.4 ML SYR SQ SCH (20:45)
[2019-06-30] MEDS: LATANOPROST 0.005% OP SOLN 2.5 ML BTL OP SCH (20:46)
[2019-06-30] MEDS: ACETAMINOPHEN 325 MG TAB PO PRN (20:47)
[2019-07-01] MEDS: PIPERACILLIN/TAZOBACTAM 3.375 GM in DEXTROSE 5% 100 ML IV SCH ×2 (04:58→11:21)
[2019-07-01] MEDS: LEVOTHYROXINE SODIUM 75 MCG TABLET PO SCH (04:59)
[2019-07-01 06:39] LABS: Creatinine Clr Calc Pharmacy 47.6 ml/min; Est GFR (African American) 90.4
[2019-07-01] MEDS: ATENOLOL 25 MG TABLET PO SCH (08:35)
[2019-07-01] MEDS: MULTIVITAMIN TAB PO SCH (08:35)
[2019-07-01] MEDS: FOLIC ACID 1 MG TAB PO SCH (08:36)
[2019-07-01] MEDS: POTASSIUM CHLORIDE 20 MEQ TABCR PO SCH (08:36)
[2019-07-01] MEDS: THIAMINE HCL 100 MG TAB PO SCH (08:36)
[2019-07-01] MEDS: CHOLECALCIFEROL 1,000 UNITS TAB PO SCH (08:36)
[2019-07-01] MEDS: MAGNESIUM OXIDE 400 MG TAB PO SCH (08:36)
[2019-07-01] MEDS: POLYETHYLENE (MIRALAX) 17 GM PACK PO SCH (08:43)
[2019-07-01] MEDS: PANTOprazole 40 MG TAB PO SCH (08:43)
[2019-07-01 09:26] LABS: BUN Creatinine Ratio 14.3 (10-20); Calcium 8.9 mg/dl (8.5-10.1); Creatinine Clr Calc Pharmacy 47.6 ml/min; Est GFR (African American) 90.4; Potassium 3.3 mmol/L (3.5-5.1)
[2019-07-01] MEDS: VANCOMYCIN HCL 750 MG in SODIUM CHLORIDE 0.9% 250 ML IV SCH (10:04)
[2019-07-01] MEDS ORDERED: Nursing to Pharmacy Communication ONE (15:41)
--- NOTE | 2019-07-01 17:51 | Discharge Summary ---
Date of Service July 01, 2019 Admission HPI Per Admitting Provider This is an 84-year-old female with unclear past medical history but may have previous alcoholism that presented today with change in mental status and anorexia. Patient is nonverbal to me and I can get no history. I did speak to the emergency room physician who also did not have much history on the patient. He did not the patient has no POA and is currently a lizama of the state but he could not contact anyone in that office today on account of the holiday season. Was relayed to me was that the patient was recently treated at [facility]. Patient was discharged a few days ago to a long term. The patient was sent from the long term to our facility after 4 days as the patient was very weak and not eating well. In fact, the initial request was that the patient be 302'd for "refusing to eat". On my evaluation, the patient seemed to be very altered and did not acknowledge me in the room nor did she speak to me. Therefore, no further history can be obtained. Principal Diagnosis Right hip infection Discharge Exam Constitutional average body habitus, + cachectic and + altered mental status; + not well nourished and no acute distress Eyes + anicteric sclerae and + abnormal pupil size (b/l equal, small) ENMT external ear and nose normal, oropharynx normal Mouth: + dry oral mucous membranes Neck trachea midline, no thyromegaly trachea midline Respiratory normal respiratory effort, lungs clear to auscultation + uses accessory muscles, normal percussion and + prolonged expiratory phase; no respiratory distress, no cough and not tachypneic Auscultation: lungs clear to auscultation bilaterally Cardiovascular RRR, no murmur, no edema Rate/Rhythm: regular rate, regular rhythm and + tachycardic Heart Sounds: no murmur Vessels: no JVD Extremities: normal capillary refill; no calf tenderness and no pedal edema Chest (Breasts) Chest: normal inspection of chest Gastrointestinal (Abdomen) normal bowel sounds, soft, nontender, no hepatosplenomegaly Inspection/Auscultation: abdomen normal to inspection, + abdomen distended and normal bowel sounds Percussion/Palpation: abdomen soft; abdomen nontender, no guarding and abdomen not rigid Musculoskeletal Extremities: + extremities abnormal to inspection (rt hip with dressing in place), no cyanosis and no clubbing Hip: hip normal to inspection and no effusion Skin no rashes, warm and dry Neurologic moves all extremities and awake; no focal motor deficits Psychiatric Orientation: alert; + not oriented x 3 Apperance: + disheveled Eye Contact: + fair eye contact and + poor eye contact Motor Behavior: no abnormal motor movements Thought Process: + tangential thought process and + looseness of associations (repeats words) Insight: + poor insight Judgement: + poor judgement Lymphatic no lymphedema Discharge Data Allergies Allergy/AdvReac Type Severity Reaction Status Date / Time cefdinir Allergy Unknown Verified 06/17/19 19:08 clindamycin Allergy Unknown Verified 06/17/19 19:08 hydroxychloroquine Allergy Unknown Verified 06/17/19 19:08 fluconazole AdvReac Unknown Verified 06/17/19 19:08 Consultations 06/17/19 16:58 ED Decision to Admit Stat 06/20/19 10:04 Consult Orthopedic Surgery Routine 06/20/19 11:19 Consult Palliative Care Routine 06/26/19 13:03 Consult Infectious Diseases Routine Procedures Performed Operation Date: 06/24/19 11:20 Actual Procedures p Right Hip Incision and Drainage(Right) - Jr Alex, Ordered Studies 06/17/19 20:24 CT head/brain wo con Stat 06/19/19 11:17 CT abd pelvis IV con only Routine 06/19/19 16:03 FL guided needle placement Routine 06/19/19 16:05 FL inj majr joint sh,hip,kn RT Routine 06/20/19 12:58 MR hip RT wo con Urgent Hospital Course (1) Right hip joint effusion: Concern for septic joint given fever, WBC and CT imaging showing complex fluid collection. -not able to get right hip aspiration under fluoro guidance due to poor cooperation by patient Now s/p washout of hip with removal of large amount of brown-colored joint fluid with white clumps noted on 06/24/18 by Ortho ESR 88, CRP 5.5 Joint fluid cultures with no growth to date Blood cultures no growth-final - ID consulted -Continue broad-spectrum antibiotics with Zosyn and vancomycin - will need 3 -4 weeks total -intraoperative cultures - no growth to date -Ultrasound guided peripheral IV was placed on 06/23 and can remain in place for 4 weeks -Will need weekly CBC, PRP, Sed rate and CRP while on IV abx -Continue Tylenol as needed for pain, tramadol (2) Wernicke encephalopathy: Concern for Wernicke's/Korsakoff given history of recurrent falls leading to memory impairment, delirium and eventual apathy. Ongoing confusion and disinhibition of speech and thought process Not much improvement since admission -Continue empiric high-dose thiamine supplementation initially with IV thiaminedecreased now to 100 mg p.o. daily. (3) Toxic encephalopathy: Baseline reported prior to [facility] admission on 05 June: Able to have full conversations. Possible undiagnosed dementia but appeared to be much worse during admission to [facility]. Recurrent falls prior to admission but started being completely immobile during that admission. She apparently was walking (with assistance) at [facility] but become more generalized fatigue, suspected due to Librium use which was discontinued on 11 June. [facility] notes suggest bed bound status, sleeping most of the day, not taking medication or much/any oral intake in general. This is very similar to how she is now -she did have one fever at [facility] on 11 June but blood cultures where negative and UA was apparently "clean for infection". She was deemed incompetent to make medical decisions at [facility] (although psychiatry assessment suggest a significant decline from to 10 June assessment. She now has a guardian in place from office of aging. Cannot be discharged without first discussing with guardian. CT head unremarkable CT A/P performed to assess for ascites and there is none However findings concerning for septic arthritis as above Unclear if this is simple delirium/metabolic encephalopathy, but hopefully this could be the case especially with waxing and waning nature. Continue serial exams and supportive care. B12 was above normal, TSH was wnl Folic acid and thiamine replacement provided Palliative care consulted 06/20 - given her current legal status with [employer] as her guardian and her inability to really voice her own wishes, no decisions toward a more palliative approach can be made (4) Hypernatremia: Resolvedcontinue to follow, follow oral intake and follow-up basic metabolic panel (5) UTI (urinary tract infection): Ur cx E. coli pansensitive-she is already received enough days of treatment of antibiotics for UTI but continues on them for hip as above (6) Alcoholism: No alcohol withdrawal as last alcohol drink suspected to be around 04 June. She had a positive ethanol level on admission to [facility] on and was treated with Librium there for suspected alcohol withdrawal. Thiamine supplementation as above -Continue folic acid and multivitamin daily (7) Sinus tachycardia: Likely was secondary to dehydration vs. reflex from atenolol discontinuation vs. appropriate in setting of infection. One episode of SVT on 06/18 which spontaneously resolved. -restarted atenolol, appears to be doing well in this regard now With normal sinus rhythm and normal rates (8) Hypokalemia: ongoing - replaced -Encourage p.o. 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 twice daily -Now that she is no longer drinking alcohol, we could likely reduce this dose to once daily upon discharge (14) DVT prophylaxis: lovenox 40mg sq daily (15) Discharge planning issues: Family do not wish her to go back to [facility] (although actual decision down to office of aging). PT/OT ongoing eval and treat Disposition-awaiting rehab placement at [facility] Total Time Total Time Spent Total Time Spent (In Minutes): 35 Discharge Plan Discharge Items Patient Disposition: Transfer Retirement Fac Reason For Visit: ALTERED MENTAL STATUS Discharge Diagnosis: Altered mental status; septic hip Activity: Resume your previous activity Non-emergency contact: Primary Care Provider and Surgeon Call non-emergency contact if: your symptoms worsen and your temperature is above 101 Follow-up/Referrals: Satya Crisostomo DO [Primary Care Provider] - Diet: Regular Addtl Attending Provider Instructions: Follow-up with Dr. Alex in 1 week for staple removal. Office phone number is [phone]. Weightbearing as tolerated with the right hip. No restrictions on right hip range of motion. Vancomycin 750 mg IV every 12 hours -> Being given approximately noon and midnight, though this can certainly be walked out to a more convenient time. - She will need another trough in 2-3 days (Such as 07/04/2019). It should be taken 2 hours before a dose of vancomycin is due. The goal trough level is 15 - 20 mcg/mL Zosyn 3.375g Q8h (if you do prolonged, 4-hour infusion). It will need to be Q6h if you do a typical, 30-minute infusion of the dose. The total time-course of antibiotics is 3-4 weeks. (End date: 07/21/2019) She should follow up with ID (Maria Del Rosario Tapia) in 1-2 weeks before stopping her antibiotics. Will need weekly CBC, CMP, ESR, vanc trough. Her ultrasound-guided IV should be good for 3 more weeks. (Pull date: 07/21/2019.) Pending Studies at Discharge: No Stand-Alone Forms: [employer] [facility] [employer], Suicide Prevention Resources Skilled Items Patient informed of condition?: Yes DNR: No Discharge Level of Care: Skilled Communicable Disease: No Discharge Prognosis: Stable Lines: US Guided Peripheral IV Urinary Catheter: No Medications and DC Order Prescriptions: New thiamine HCl (vitamin B1) [Vitamin B-1] 100 mg Tablet 100 mg PO QAM Qty: 1 RF: 0 tramadol 50 mg Tablet 50 mg PO Q4H PRN (Reason: pain) Qty: 3 RF: 0 potassium chloride [Klor-Con M20] 20 mEq Tablet,Er Particles/Crystals 20 meq PO BID Qty: 1 RF: 0 folic acid 1 mg Tablet 1 mg PO QAM Qty: 1 RF: 0 Piperacill/Tazobac Consult [Consult] 1 ea N/A UD PRN (Reason: Infection) Qty: 1 RF: 0 Vancomycin Consult Active [Consult] 1 ea N/A UD PRN (Reason: Infection) Qty: 1 RF: 0 Continued multivitamin Tablet 1 tab PO DAILY RF: 0 latanoprost 0.005 % Drops 1 drp OPHTHALMIC (EYE) PM RF: 0 acetaminophen [Tylenol] 325 mg Tablet 650 mg PO Q6H PRN (Reason: Fever Or Pain) RF: 0 polyethylene glycol 3350 [Miralax] 17 gram Powder In Packet 17 g PO DAILY RF: 0 fexofenadine [Mindy Allergy] 60 mg Tablet 60 mg PO DAILY RF: 0 atenolol 25 mg Tablet 25 mg PO BID RF: 0 aspirin [Aspir-81] 81 mg Tablet,Delayed Release (Dr/Ec) 81 mg PO DAILY RF: 0 levothyroxine 75 mcg Tablet 75 mcg PO DAILY RF: 0 estradiol 0.025 mg/24 hr Patch Weekly 0 mg topical 2XWK RF: 0 simethicone 125 mg Tablet 125 mg PO Q8 PRN (Reason: Heartburn) RF: 0 ipratropium bromide 0.02 % Solution 0 ml INHALATION QID RF: 0 omeprazole 20 mg Tablet,Delayed Release (Dr/Ec) 20 mg PO BID RF: 0 cholecalciferol (vitamin D3) [Vitamin D3] 2,000 unit Tablet 2,000 unit PO DAILY RF: 0 magnesium oxide 400 mg magnesium Tablet 400 mg PO BID RF: 0 Discontinued diphenhydramine HCl 50 mg Capsule 50 mg PO .Q24HRS PRN (Reason: Insomnia) RF: 0 flaxseed oil 1,000 mg Capsule 1,000 mg PO DAILY RF: 0 lorazepam 1 mg Tablet 1 mg PO DAILY PRN (Reason: Anxiety) RF: 0 Myrbetriq 50 mg Tablet Extended Release 24 Hr 50 mg PO DAILY RF: 0 Discharge Orders: Discharge Order (Routine); Ordered 07/01/19 Ordered By: [place] Admission Data Admit Date/Time: 06/17/19 17:59 Attending Provider: [place] Admit Provider: Jason Lou Primary Care Provider: Satya Crisostomo Other Providers: Jason Lou ; Jr Alex ; Maria Del Rosario Tapia ; [place] ; [place], Other Interventions: Discharge Summary Assessment (RN) Last Done: 07/01/19 14:14 DC Date/Time DO NOT enter until pt leaves facility: 07/01/19 16:10
== END 2019-07-01 16:10 | DRG 548 ==
LOC: ED 15:01 → 2W 17:59 → SUATTDRO 17:59 → 2W 19:04 → 3N 06-25 07:06
PROC: M.IDHIP (2019-06-24 11:20)